=== PATIENT | female | born 1960 | race Caucasian/White ===

== ENCOUNTER 2021-02-20 12:32 | Inpatient (IN) | payer MEDICARE, MEDICAID, SELFPAY ==
--- NOTE | ~2021-02-20 | US_ITS ---
EXAMINATION: US VENOUS ULTRASOUND WITH DOPPLER LOWER EXTREMITY, LEFT CLINICAL INFORMATION: Pain. Edema. Swelling. COMPARISON: None TECHNIQUE: Ultrasound of the deep veins is performed from the hip to the calf with compression sonography and color and pulse Doppler assessment. Spectral analysis with color-flow imaging is performed. FINDINGS: There is extensive deep vein thrombosis of the left lower extremity. There is thrombus present in the common femoral vein, greater saphenous vein, profunda vein. In the femoral vein from proximal through distal and into the popliteal vein. There is thrombus in the posterior tibial vein and peroneal vein of the calf. US/US venous duplex LE IMPRESSION: Extensive deep vein thrombosis of left lower extremity. This critical result was discussed with Dr. Bassett on 02/20/2021, 5:18 PM and it was ascertained that the content and urgency of the report was understood at the time of direct communication.
--- NOTE | ~2021-02-20 | CT_ITS ---
EXAMINATION: CT ANGIOGRAM OF THE CHEST WITH AND WITHOUT CONTRAST (CT PULMONARY ANGIOGRAM FOR PE) CLINICAL INFORMATION: Reason for Exam Extensive DVT, exlude PE COMPARISON: 03/31/2016. TECHNIQUE: Prior to contrast administration, noncontrast localization images were obtained. Subsequently, multidetector volumetric imaging was performed from the thoracic inlet to below the diaphragms following the administration of 69 mL Omnipaque 350 intravenous contrast. No contrast reaction reported Sagittal, coronal, and MIP oblique sagittal reformatted images were obtained on the CT workstation, uploaded to PACS, and reviewed. This CT examination was performed using dose optimization techniques as appropriate, variously including the following: *Automated exposure control *Adjustment of mA and/or kV according to patient size (this includes techniques or standardized protocols for targeted exams where dose is matched to indication/reason for exam; i.e. extremities or head) *Use of iterative reconstruction technique Total exam dose-length product 408 mGy-cm FINDINGS: QUALITY OF STUDY/CONTRAST BOLUS: Satisfactory. PULMONARY ARTERIES: As seen on image [id number] of series 7, there is a small intraluminal filling defect within a segmental pulmonary artery to the posterior basilar segment of the right lower lobe, most concerning for an acute pulmonary embolus. No additional filling defects are identified in the central, lobar, or segmental pulmonary artery branches. Main pulmonary arteries are normal in caliber. THORACIC AORTA: No aneurysm or dissection. Mild calcific atherosclerosis in the thoracic aorta. LUNG: Mild dependent atelectasis. No focal airspace consolidation. Central airways are clear. No suspicious pulmonary nodules. PLEURA: No pleural effusion or pneumothorax. MEDIASTINUM: Normal heart size. No pericardial effusion. No hilar or mediastinal lymphadenopathy. No evidence of septal bowing or right heart strain. CHEST WALL/AXILLA: No axillary or internal mammary lymphadenopathy. OSSEOUS STRUCTURES: No acute or suspicious osseous abnormality. Diffusely idiopathic skeletal hyperostosis is apparent in the thoracic spine. No acute fracture or malalignment. UPPER ABDOMEN: Unremarkable. No reflux of contrast into the hepatic veins to suggest elevated right heart pressures. CT/CT angio chest PE protocol IMPRESSION: Small segmental pulmonary embolus in the right lower lobe, favored to be acute. No evidence of elevated right heart pressures. No additional pulmonary emboli are identified. VTE: positive
[2021-02-20 12:43] VITALS: BP 119/54; PULSE 86; RESP 16; TEMP 36.6; O2SAT 98; BMI 35.8
--- NOTE | 2021-02-20 14:09 | ED_ITS ---
HPI - Extremity Injury (Lower) General Chief Complaint: Extremity Injury, Lower Stated Complaint: LT LEG PAIN,NEAR SYNCOPE Time Seen by Provider: 02/20/21 14:05 History of Present Illness HPI Narrative: Patient is a 61-year-old female with a history of migraine headaches. Presents today with having left leg pain. Swelling. Patient denies any fever chills. No nausea no vomiting. No trauma. Complaining of pain and swelling to the calf on the left side. There is swelling there. Patient denies having history of blood clots in the past. Not on hormone replacement. No dizziness. No nausea no vomiting no chest pain or shortness of breath. Patient is from home. Related Data Allergies Allergy/AdvReac Type Severity Reaction Status Date / Time bee pollen [BEE STINGS] Allergy Unknown UNKNOWN Unverified 04/12/20 16:09 divalproex sodium Allergy Unknown UNKNOWN Unverified 04/12/20 16:09 [From DEPAKOTE] erythromycin base Allergy Unknown UNKNOWN Unverified 04/12/20 16:09 [ERYTHROMYCIN BASE] oxycodone [From PERCOCET] AdvReac Mild NAUSEA & Unverified 04/12/20 16:09 VOMITING Review of Systems Review of Systems: No fever no chills no chest pain or shortness of breath No nausea no vomiting Positive leg swelling on the left side Yes all other systems are reviewed and are negative [facility] Past Medical History Medical History Anxiety Hypertension Migraine Ruptured (congenital) cerebral aneurysm Stroke Social History Social History Advance Directives: Yes Advance Directives Information Provided: Yes Advance Directives on File: No Physical Exam Vital Signs: Vital Signs: Last Vital Signs Temp 97.8 F 02/20/21 12:43 Pulse 67 02/20/21 15:58 Resp 16 02/20/21 15:58 BP 125/65 02/20/21 15:58 Pulse Ox 98 02/20/21 15:58 Body Mass Index 35.8 Appearance: Alert. Oriented X3. No acute distress. Eyes: Pupils equal, round and reactive to light. ENT: Pharynx normal. Neck: Normal inspection. Neck supple. No lymph nodes noted. No crepitus CVS: Normal heart rate and rhythm. Pulses normal. Normal S1 and S2 Respiratory: No respiratory distress. Breath sounds normal. No Wheezing. No rales Abdomen: Soft and nontender. No rigidity. No distention. good BS x4 Skin: Skin warm and dry. Normal skin color. Normal skin turgor. Extremities: Positive swelling to the left leg. Pulses intact. Sensation intact there is a model appearance to the skin. There is good pulses noted. Range of motion limited secondary to pain. Neuro: Oriented X 3. No motor deficit. No sensory deficit. Moving all extermities. No slurred speech MDM - Extremity Injury (Lower) MDM Narrative Medical decision making narrative: Patient has a history of swelling to the leg. Increasing pain. Ultrasound showed extensive DVT almost involving every vein. Clinically appear to have a red swollen leg. Consistent with having extensive clot. The finding was discussed with vascular will start patient on a heparin drip along with bolus. Vascular will perform clot retrieval tomorrow Medical Records Attestation: I reviewed the patient's medical records. Lab Data Attestation: I reviewed the patient's lab results. Result diagrams: 02/20/21 14:13 02/20/21 14:13 Labs: Lab Results 02/20/21 02/20/21 02/20/21 Range/Units 12:41 14:13 14:13 WBC 11.1 H (4.8-10.8) X10*3/uL RBC 4.45 (4.20-5.50) X10*6/uL Hgb 13.2 (12.0-16.0) g/dl Hct 41.0 (37-47) % MCV 92.1 (80-98) fL MCH 29.7 (27.0-33.0) pg MCHC 32.2 (31.0-35.0) g/dl RDW 12.8 (11.0-16.0) % Plt Count 228 (160-400) X10*3/uL MPV 10.3 (9.4-12.3) fL Immature Gran % (Auto) 0.5 H (0.0-0.4) % Neut % (Auto) 78.8 H (45-73) % Lymph % (Auto) 12.2 L (20-40) % Calloway % (Auto) 7.1 (2-11) % Eos % (Auto) 1.0 (0-4) % Baso % (Auto) 0.4 (0-2) % Lymph # (Auto) 1.4 (1.2-4.9) X10*3/uL Calloway # (Auto) 0.8 (0.1-1.2) X10*3/uL Eos # (Auto) 0.1 (0.0-0.4) X10*3/uL Baso # (Auto) 0.0 (0.0-0.2) X10*3/uL Abs Immat Gran (auto) 0.05 H (0.00-0.03) X10*3/uL Absolute Neuts (auto) 8.8 H (2.0-8.3) X10*3/uL Absolute Nucleated RBC 0.000 (0.0-0.012) X10*3/uL Nucleated RBC % (auto) 0.0 (0.0-0.2) /100WBC Whole Blood PT TNP Whole Blood INR TNP Sodium 143 (135-145) mmol/L Potassium 4.6 (3.3-5.1) mmol/L Chloride 107 (96-108) mmol/L Carbon Dioxide 25 (22-29) mmol/L Anion Gap 16 (12-20) BUN 18 H (9-16) mg/dL Creatinine 1.04 (0.5-1.4) mg/dL Estim Creat Clear Calc 59.6 Estimated GFR 54 Random Glucose 115 (60-115) mg/dL Calcium 10.0 (8.4-10.2) mg/dL Total Bilirubin 0.8 (0.0-1.0) mg/dL Direct Bilirubin 0.3 (0.0-0.5) mg/dL AST 47 H (5-31) U/L ALT 38 H (0-31) U/L Alkaline Phosphatase 176 H (39-117) U/L Total Protein 7.0 (6.5-8.0) g/dL Albumin 4.4 (3.5-5.0) g/dL Discharge Plan Discharge Clinical Impression: DVT (deep venous thrombosis) Patient Disposition: Admitted As Inpatient
[2021-02-20 14:14] VITALS: BP 115/89; PULSE 64; RESP 16; O2SAT 98
[2021-02-20 14:22] LABS: MANUAL DIFF FLAG NO
[2021-02-20 14:28] LABS: Basophils Percent Auto 0.4 % (0-2); Eosinophils Absolute Auto 0.1 X10*3/uL (0.0-0.4); Hemoglobin 13.2 g/dl (12.0-16.0); Imm Gran Abs Auto 0.05 X10*3/uL (0.00-0.03); Imm Gran Pct Auto 0.5 % (0.0-0.4); Lymphocytes Absolute Auto 1.4 X10*3/uL (1.2-4.9); Lymphocytes Percent Auto 12.2 % (20-40); Mean Corpuscular HGB Conc 32.2 g/dl (31.0-35.0); Mean Corpuscular Hemoglobin 29.7 pg (27.0-33.0); Mean Corpuscular Volume 92.1 fL (80-98); Mean Platelet Volume 10.3 fL (9.4-12.3); Monocytes Absolute Auto 0.8 X10*3/uL (0.1-1.2); Monocytes Percent Auto 7.1 % (2-11); Neutrophils Absolute Auto 8.8 X10*3/uL (2.0-8.3); Neutrophils Percent Auto 78.8 % (45-73); Platelet Count 228 X10*3/uL (160-400); Red Blood Count 4.45 X10*6/uL (4.20-5.50); Red Cell Distribution Width 12.8 % (11.0-16.0); White Blood Count 11.1 X10*3/uL (4.8-10.8)
[2021-02-20 14:51] LABS: Alanine Aminotransferase 38 U/L (0-31); Albumin Level 4.4 g/dL (3.5-5.0); Alkaline Phosphatase 176 U/L (39-117); Anion Gap 16 (12-20); Aspartate Amino Transferase 47 U/L (5-31); Bilirubin Direct 0.3 mg/dL (0.0-0.5); Bilirubin Total 0.8 mg/dL (0.0-1.0); Blood Urea Nitrogen 18 mg/dL (9-16); Carbon Dioxide 25 mmol/L (22-29); Chloride 107 mmol/L (96-108); Creatinine Clr Calc Pharmacy 59.6; Estimated Glomerular Filt Rate 54; Glucose Random 115 mg/dL (60-115); Potassium 4.6 mmol/L (3.3-5.1); Sodium 143 mmol/L (135-145)
[2021-02-20 15:58] VITALS: BP 125/65; PULSE 67; RESP 16; O2SAT 98
[2021-02-20] MEDS: LORazepam 2 MG/ML VIAL 1 MG IVPUSH (16:12)
[2021-02-20] MEDS: Ketorolac Tromethamine 15 MG/ML VIAL IVPUSH (16:12)
--- NOTE | 2021-02-20 18:16 | PHA.MEDREC ---
Pharmacy Consult ? Medication Reconciliation Pharmacy has completed the medication reconciliation. Therer are no remarkable issues for provider's attention. Patient reports that for diarrhea see prefers using Cholestyramine 2 4g packets over Immodium. Glenna Teran, PharmD
[2021-02-20 18:24] VITALS: BP 136/71; PULSE 77; RESP 18; TEMP 36.8; O2SAT 96
[2021-02-20 18:38] VITALS: BMI 34.2
[2021-02-20] MEDS: Heparin Sodium,Porcine/1/2NS 25,000 UNIT/250 ML IV.SOLN 12.45 UNIT IVCONT (18:40)
[2021-02-20] MEDS: Heparin Sodium,Porcine 5,000 UNIT/ML VIAL 5000 UNIT IVPUSH (18:40)
--- NOTE | 2021-02-20 18:46 | PM.IMHP ---
History of Present Illness Date of Service: 02/20/21 Chief Complaint: Left leg swelling 61-year-old female with a history of migraine headaches, history of brain aneurysm 32 years ago, chronic sciatica, drop foot, arthritis, presenting to ED with very swollen left that developped over the last 24 hours. She is usually not very mobile, and did take a bus to the [employer] to [place] yesterday. She has not been having sob, she takes no hormones, she does not have history of cancer. US sound shows extensive deep vein thrombosis of left lower extremity. Review of Systems Review of Systems: Gen: no fever Resp: no sob, no cough CV: no chest, no MOLINA, no leg edema GI: No n/v, no abd pain Neuro: No confusion Ext: left leg swelling [facility] Medical History (Updated 02/20/21 @ 18:55 by Hardeep Piper MD) Anxiety Hypertension Migraine Ruptured (congenital) cerebral aneurysm Sciatica Stroke Surgical History History of cholecystectomy History of partial hysterectomy History of ventriculoperitoneal shunting Social History Advance Directives: Yes Advance Directives Information Provided: Yes Advance Directives on File: No Meds Allergies Allergy/AdvReac Type Severity Reaction Status Date / Time bee pollen [BEE STINGS] Allergy Unknown UNKNOWN Unverified 04/12/20 16:09 divalproex sodium Allergy Unknown UNKNOWN Unverified 04/12/20 16:09 [From DEPAKOTE] erythromycin base Allergy Unknown UNKNOWN Unverified 04/12/20 16:09 [ERYTHROMYCIN BASE] oxycodone [From PERCOCET] AdvReac Mild NAUSEA & Unverified 04/12/20 16:09 VOMITING Active Medications: Current Medications Generic Name Dose Route Start Last Admin Trade Name Freq PRN Reason Stop Dose Admin Acetaminophen 650 mg 02/20/21 18:40 Acetaminophen 325 Mg Tablet PO Q6H PRN Pain, Mild (Pain Scale 1-3) Docusate Sodium 100 mg 02/20/21 18:40 Docusate Sodium 100 Mg Capsule PO DAILY PRN Constipation Heparin Sodium (Porcine) 3,600 unit 02/20/21 17:40 Heparin Sodium,Porcine 5,000 Unit/Ml Vial 40 unit/kg (3600 unit) IVPUSH PROTOCOL BOLUS PRN 40 unit/kg - Heparin Protocol Protocol Heparin Sodium (Porcine) 7,100 unit 02/20/21 17:40 Heparin Sodium,Porcine 5,000 Unit/Ml Vial 80 unit/kg (7100 unit) IVPUSH PROTOCOL BOLUS PRN 80 unit/kg - Heparin Protocol Protocol Heparin Sodium/Sodium Chloride 25,000 unit in 250 mls @ 0 mls/hr 02/20/21 17:45 02/20/21 18:40 IVCONT 14 units/kg/hr .Q0M AYLEEN 12.45 mls/hr Administration Protocol Per Protocol Dextrose/Sodium Chloride 1,000 mls @ 100 mls/hr 02/20/21 18:45 D51/2ns IVCONT 02/21/21 04:44 .Q10H AYLEEN Magnesium Hydroxide 30 ml 02/20/21 18:40 Milk Of Magnesia 30 Ml Oral.Susp PO DAILY PRN Constipation Melatonin 6 mg 02/20/21 18:40 Melatonin 3 Mg Tablet PO BEDTIME PRN Insomnia Ondansetron HCl 4 mg 02/20/21 18:40 Ondansetron Hcl 4 Mg/2 Ml Vial IVPUSH Q8H PRN Nausea and Vomiting Pharmacy Consult 1 each 02/20/21 17:22 Consult Rx Perform Med Rec MISCELLANE ONCE PRN Consult order Sodium Chloride 3 ml 02/21/21 00:00 0.9 % Sodium Chloride Flush 3 Ml Syringe IVFLUSH QSHIFT [facility] Valacyclovir HCl 1,000 mg 02/20/21 21:00 Valacycyclovir Hcl 1,000 Mg Tablet PO BID [facility] Home Medications Medication Instructions Recorded Confirmed Last Taken Type aspirin 81 mg chewable tablet 81 mg PO BEDTIME 02/20/21 02/20/21 02/19/21 History cholestyramine (with sugar) 4 gram 8 g PO QID PRN 02/20/21 02/20/21 Unknown History powder for susp in a packet clonazepam 1 mg tablet 1 mg PO BEDTIME PRN 02/20/21 02/20/21 02/19/21 History escitalopram oxalate 10 mg tablet 1 tab PO BEDTIME 02/20/21 02/20/21 02/19/21 History estradiol 1 appl VAGINAL BEDTIME 02/20/21 02/20/21 02/19/21 History gabapentin 100 mg capsule 200 mg PO BEDTIME 02/20/21 02/20/21 02/19/21 History irbesartan 75 mg tablet 0.5 tab PO BEDTIME 02/20/21 02/20/21 02/19/21 History melatonin 5 mg tablet 5 mg PO BEDTIME 02/20/21 02/20/21 02/19/21 History trazodone 100 mg tablet 2 tab PO BEDTIME 02/20/21 02/20/21 02/19/21 History valacyclovir 1 gram tablet 1 tab PO BID 02/20/21 02/20/21 02/20/21 History verapamil 240 mg tablet,extended 1 tab PO DAILY 02/20/21 02/20/21 02/19/21 History release Physical Exam Vital Signs and Narrative: Vital Signs: Last Vital Signs Temp 98.2 F 02/20/21 18:24 Pulse 77 02/20/21 18:24 Resp 18 02/20/21 18:24 BP 136/71 02/20/21 18:24 Pulse Ox 96 02/20/21 18:24 Body Mass Index 34.2 Const: Other: Constitutional Awake and Alert, No apparent distress Neck Supple, No lymphadenopathy Cardiovascular RRR, No M/R/G, S1 S2, No S3 S4, No pedal edema Respiratory Lungs clear, No respiratory distress Gastrointestinal Non tender, Non-distended Skin No rash Neurological Alert & oriented x3 Psychological Appropriate affect Extensive swelling of the left leg, bit discolored compare to the other one Results Labs CBC and Chem 7: 02/20/21 14:13 02/20/21 14:13 Imaging Radiologist's Impressions: Impressions Venous Duplex 02/20/21 14:05 IMPRESSION: Extensive deep vein thrombosis of left lower extremity. This critical result was discussed with Dr. Bassett on 02/20/2021, 5:18 PM and it was ascertained that the content and urgency of the report was understood at the time of direct communication. Assessment and Plan (1) DVT (deep venous thrombosis): Status: Acute 61 year old female with extensive left DVT of unclear precipitant Plan: IV heparin, Vascular and Hematology, CT chest to exlude PE 2 HTN--continue Irberstartan once med rec done 3. Anxiety depression--Clonapen, Celexa DVT prophylaxis--Heparin, Full code Quality Stroke Does the patient have a stroke diagnosis?: No VTE Prior VTE?: No VTE Risk Level:: Medical - moderate - high VTE Device Contraindication: N/A - Device Ordered VTE Drug Contraindication: N/A - Med Ordered
[2021-02-20 18:53] LABS: COVID-19 Test Negative (Negative); IDNOW Serial# 9DD0AD1C
[2021-02-20] MEDS: Dextrose 5 % and 0.45 % NaCl 1,000 ML 100 ML IVCONT (18:58)
[2021-02-20] MEDS: Acetaminophen 325 MG TABLET 650 MG PO (18:58)
[2021-02-20 18:59] LABS: PTT Heparin Drip 89.4 SEC (53-77.9)
[2021-02-20] MEDS: iohexoL 350 MG/ML 100 ML INFUS..BTL IV (20:19)
[2021-02-20] MEDS: traZODone HCL 100 MG TABLET 200 MG PO (20:22)
[2021-02-20] MEDS: Gabapentin 100 MG CAPSULE 200 MG PO (20:22)
[2021-02-20] MEDS: Aspirin 81 MG TAB.CHEW PO (20:22)
[2021-02-20] MEDS: Valsartan 40 MG TABLET 20 MG PO (20:22)
[2021-02-20] MEDS: Escitalopram Oxalate 10 MG TABLET PO (20:23)
[2021-02-20] MEDS: Melatonin 3 MG TABLET 6 MG PO (21:03)
[2021-02-20 21:05] VITALS: BP 102/46; PULSE 75; RESP 16; O2SAT 98
--- NOTE | 2021-02-20 22:20 | P.EN_ITS ---
Event Note Date of Service: 02/20/21 Event Note: CTA chest positive for small PE withno evindece of right heart str ain
[2021-02-20] MEDS: clonazePAM 1 MG TABLET PO (22:31)
[2021-02-21] VITALS (22 sets, daily range): BP systolic 91–131; BP diastolic 38–86; PULSE 51–74; RESP 12–21; TEMP 36.1–37; O2SAT 92–98; BMI 36.6
--- NOTE | 2021-02-21 00:50 | PC.NURSE ---
RN CALLED TO ROOM FOR BEEPING PER PT. ON ARRIVAL IV PUMP WAS BEEPING, PT NOTED TO HAVE R AC IV SITE INFILTRATION WHERE THE HEPARIN DRIP WAS INFUSING. PT HAD RED SWOLLEN AREA AT IV SITE. PUMP WAS STOPPED, IV REMOVED, SITE MARKED & WARM PACK APPLIED. LAB WAS AT BEDSIDE AT THIS TIME FOR PT/HD. HEPARIN WILL REMAIN PAUSED UNTIL RESULT PER HOSPITALIST WHO IS AWARE OF IV INFILTRATION. 2ND LINE WILL BE PLACED.
[2021-02-21 01:09] LABS: PTT Heparin Drip 104.7 SEC (53-77.9)
[2021-02-21 07:18] LABS: PTT Heparin Drip 128.6 SEC (53-77.9)
--- NOTE | 2021-02-21 08:06 | PC.NURSE ---
HEPARIN GTT TUNED OFF AT [address] SHEIKH AT BEDSIDE.
[2021-02-21] MEDS: 0.9 % Sodium Chloride 500 ML 20 ML IVCONT (10:00)
[2021-02-21] MEDS: Heparin Sodium,Porcine/1/2NS 25,000 UNIT/250 ML IV.SOLN 5 UNIT IVCONT (10:10)
[2021-02-21] MEDS: 0.9 % Sodium Chloride Flush 3 ML SYRINGE IVFLUSH (10:18)
--- NOTE | 2021-02-21 10:29 | P.CONGS_ITS ---
History of Present Illness Consult details Consult date: 02/21/21 Reason for consult: other (DVT/PE) Requesting physician: Hardeep Piper Narrative: Very pleasant 61-year-old female presented to the emergency room yesterday evening for acute onset left lower extremity swelling. There have been no aggravating factors per. This is the 1st time such a thing has ever happened to her. Upon workup she was found to have a DVT and subsequent CT scan demonstrated a pulmonary embolism. She denies any hypercoagulable his history, any trauma, or any family history. She now presents for vascular evaluation. Review of Systems Constitutional: Constitutional: Reports as per HPI ENT: Reports system reviewed and no additional complaints, except as documented Cardiovascular: Cardiovascular: Denies chest pain, Denies chest pain at rest and Denies chest pain with activity Respiratory: Respiratory: Denies chest congestion and Denies cough Gastrointestinal: Gastrointestinal: Reports no additional gastrointestinal complaints Musculoskeletal: Musculoskeletal: Denies abnormal gait Integumentary/Breasts: Skin/Breast: Reports pruritus and Denies wounds Neurologic: Reports system reviewed and no additional complaints, except as documented and Denies abnormal gait Psychiatric: Psychiatric: Denies no additional psychiatric complaints [facility] Past Medical History Medical History (Updated 02/20/21 @ 18:55 by Hardeep Piper MD) Anxiety Hypertension Migraine Ruptured (congenital) cerebral aneurysm Sciatica Stroke Surgical History Surgical History History of cholecystectomy History of partial hysterectomy History of ventriculoperitoneal shunting Social History Social History Patient Tobacco Use Status: Former Tobacco user Use of substances other than those prescribed or required for medical reasons: No Have you been hit, kicked, punched, or otherwise hurt by someone within the past year? If so, by whom?: No Advance Directives: Yes Advance Directives Information Provided: Yes Advance Directives on File: No Advance Directives Date on File: 02/21/21 Meds Allergies Allergy/AdvReac Type Severity Reaction Status Date / Time bee pollen [BEE STINGS] Allergy Unknown UNKNOWN Verified 02/21/21 08:14 divalproex sodium Allergy Unknown UNKNOWN Verified 02/21/21 08:14 [From DEPAKOTE] erythromycin base Allergy Unknown UNKNOWN Verified 02/21/21 08:14 [ERYTHROMYCIN BASE] oxycodone [From PERCOCET] AdvReac Mild NAUSEA & Verified 02/21/21 08:14 VOMITING Active Medications: Current Medications Generic Name Dose Route Start Last Admin Trade Name Radamesq PRN Reason Stop Dose Admin Acetaminophen 650 mg 02/20/21 18:40 02/20/21 18:58 Acetaminophen 325 Mg Tablet PO 650 mg Q6H PRN Administration Pain, Mild (Pain Scale 1-3) Aspirin 81 mg 02/20/21 21:00 02/20/21 20:22 Aspirin 81 Mg Tab.Chew PO 81 mg BEDTIME AYLEEN Administration Cholestyramine Resin 8 gm 02/20/21 19:13 Cholestyramine (With Sugar) 4 Gm Powd.Pack PO QID PRN Diarrhea Clonazepam 1 mg 02/20/21 19:13 02/20/21 22:31 Clonazepam 1 Mg Tablet PO 1 mg BEDTIME PRN Administration Insomnia Docusate Sodium 100 mg 02/20/21 18:40 Docusate Sodium 100 Mg Capsule PO DAILY PRN Constipation Escitalopram Oxalate 10 mg 02/20/21 21:00 02/20/21 20:23 Escitalopram Oxalate 10 Mg Tablet PO 10 mg BEDTIME AYLEEN Administration Gabapentin 200 mg 02/20/21 21:00 02/20/21 20:22 Gabapentin 100 Mg Capsule PO 200 mg BEDTIME AYLEEN Administration Heparin Sodium (Porcine) 3,600 unit 02/20/21 17:40 Heparin Sodium,Porcine 5,000 Unit/Ml Vial 40 unit/kg (3600 unit) IVPUSH PROTOCOL BOLUS PRN 40 unit/kg - Heparin Protocol Protocol Heparin Sodium (Porcine) 7,100 unit 02/20/21 17:40 Heparin Sodium,Porcine 5,000 Unit/Ml Vial 80 unit/kg (7100 unit) IVPUSH PROTOCOL BOLUS PRN 80 unit/kg - Heparin Protocol Protocol Alteplase, Recombinant 5 mg/ 500 mls @ 50 mls/hr 02/21/21 09:30 02/21/21 10:10 Sodium Chloride IV 02/21/21 19:29 50 mls/hr ONCE ONE Administration Heparin Sodium/Sodium Chloride 25,000 unit in 250 mls @ 5 mls/hr 02/21/21 10:00 02/21/21 10:10 IVCONT 5 mls/hr .Q24H AYLEEN Administration Magnesium Hydroxide 30 ml 02/20/21 18:40 Milk Of Magnesia 30 Ml Oral.Susp PO DAILY PRN Constipation Melatonin 6 mg 02/20/21 18:40 02/20/21 21:03 Melatonin 3 Mg Tablet PO 6 mg BEDTIME PRN Administration Insomnia Non-Formulary Medication 1 appl 02/20/21 21:00 Estradiol VAGINAL BEDTIME AYLEEN Ondansetron HCl 4 mg 02/20/21 18:40 Ondansetron Hcl 4 Mg/2 Ml Vial IVPUSH Q8H PRN Nausea and Vomiting Pharmacy Consult 1 each 02/20/21 17:22 Consult Rx Perform Med Rec MISCELLANE ONCE PRN Consult order Sodium Chloride 3 ml 02/21/21 00:00 02/21/21 10:18 0.9 % Sodium Chloride Flush 3 Ml Syringe IVFLUSH 3 ml QSHIFT AYLEEN Administration Trazodone HCl 200 mg 02/20/21 21:00 02/20/21 20:22 Trazodone Hcl 100 Mg Tablet PO 200 mg BEDTIME AYLEEN Administration Valacyclovir HCl 1,000 mg 02/20/21 21:00 02/20/21 20:22 Valacycyclovir Hcl 1,000 Mg Tablet PO 1,000 mg BID AYLEEN Administration Valsartan 20 mg 02/20/21 21:00 02/20/21 20:22 Valsartan 40 Mg Tablet PO 20 mg BEDTIME AYLEEN Administration Verapamil HCl 240 mg 02/21/21 09:00 Verapamil Hcl Sr 240 Mg Tablet.Er PO DAILY [facility] Protocol Home Medications Medication Instructions Recorded Confirmed Last Taken Type aspirin 81 mg chewable tablet 81 mg PO BEDTIME 02/20/21 02/20/21 02/19/21 History cholestyramine (with sugar) 4 gram 8 g PO QID PRN 02/20/21 02/20/21 Unknown History powder for susp in a packet clonazepam 1 mg tablet 1 mg PO BEDTIME PRN 02/20/21 02/20/21 02/19/21 History escitalopram oxalate 10 mg tablet 1 tab PO BEDTIME 02/20/21 02/20/21 02/19/21 History estradiol 1 appl VAGINAL BEDTIME 02/20/21 02/20/21 02/19/21 History gabapentin 100 mg capsule 200 mg PO BEDTIME 02/20/21 02/20/21 02/19/21 History irbesartan 75 mg tablet 0.5 tab PO BEDTIME 02/20/21 02/20/21 02/19/21 History melatonin 5 mg tablet 5 mg PO BEDTIME 02/20/21 02/20/21 02/19/21 History trazodone 100 mg tablet 2 tab PO BEDTIME 02/20/21 02/20/21 02/19/21 History valacyclovir 1 gram tablet 1 tab PO BID 02/20/21 02/20/21 02/20/21 History verapamil 240 mg tablet,extended 1 tab PO DAILY 02/20/21 02/20/21 02/19/21 History release Physical Exam Vital Signs: Vital Signs: Last Vital Signs Temp 97.7 F 02/21/21 07:52 Pulse 65 02/21/21 07:52 Resp 18 02/21/21 07:52 BP 131/71 02/21/21 07:52 Pulse Ox 95 02/21/21 07:52 Body Mass Index 34.2 Const: General: cooperative, healthy appearing and comfortable Orientation/consciousness: oriented to person, oriented to place and oriented to time Neck: Carotids: no bruits Chest: Chest palpation & inspection: normal inspection of the chest and normal palpation of entire chest wall Resp: Effort & Inspection: normal respiratory effort and able to speak in complete sentences Cardio: Rate: regular rate Heart sounds: S1 normal heart sound present and S2 normal heart sound present Peripheral pulses: Peripheral pulses 2+ throughout GI: Inspection: Yes normal to inspection Skin: Other: +2 edema, left leg significantly swollen General skin exam: dry skin Neuro: General: oriented to person, oriented to place and oriented to time Extrem: General: Yes edema Right lower extremity: full ROM, normal cap illary refill and edema Left lower extremity: full ROM, normal capillary refill and edema Psych: Mental Status: mental status grossly normal Results Labs Result diagrams: 02/20/21 14:13 02/20/21 14:13 Labs: Abnormal lab results 02/20/21 02/20/21 02/20/21 Range/Units 14:13 14:13 18:46 WBC 11.1 H (4.8-10.8) X10*3/uL Immature Gran % (Auto) 0.5 H (0.0-0.4) % Neut % (Auto) 78.8 H (45-73) % Lymph % (Auto) 12.2 L (20-40) % Abs Immat Gran (auto) 0.05 H (0.00-0.03) X10*3/uL Absolute Neuts (auto) 8.8 H (2.0-8.3) X10*3/uL PTT (Heparin Protocol) 89.4 H (53-77.9) SEC BUN 18 H (9-16) mg/dL AST 47 H (5-31) U/L ALT 38 H (0-31) U/L Alkaline Phosphatase 176 H (39-117) U/L 02/21/21 02/21/21 Range/Units 00:48 06:44 WBC (4.8-10.8) X10*3/uL Immature Gran % (Auto) (0.0-0.4) % Neut % (Auto) (45-73) % Lymph % (Auto) (20-40) % Abs Immat Gran (auto) (0.00-0.03) X10*3/uL Absolute Neuts (auto) (2.0-8.3) X10*3/uL PTT (Heparin Protocol) 104.7 H 128.6 H* D (53-77.9) SEC BUN (9-16) mg/dL AST (5-31) U/L ALT (0-31) U/L Alkaline Phosphatase (39-117) U/L Short CBC 02/20/21 Range/Units 14:13 WBC 11.1 H (4.8-10.8) X10*3/uL Hgb 13.2 (12.0-16.0) g/dl Hct 41.0 (37-47) % Plt Count 228 (160-400) X10*3/uL BMP 02/20/21 14:13 Sodium 143 Potassium 4.6 Chloride 107 Carbon Dioxide 25 BUN 18 H Creatinine 1.04 Calcium 10.0 Liver Function 02/20/21 Range/Units 14:13 Total Bilirubin 0.8 (0.0-1.0) mg/dL Direct Bilirubin 0.3 (0.0-0.5) mg/dL AST 47 H (5-31) U/L ALT 38 H (0-31) U/L Alkaline Phosphatase 176 H (39-117) U/L Albumin 4.4 (3.5-5.0) g/dL All other labs normal. Imaging Additional studies: Ultrasound and CT scan written report and images were reviewed confirming DVT of the left lower extremity and PE Assessment and Plan (1) DVT (deep venous thrombosis): Status: Acute In short patient has DVT with PE. Due to the extensive nature of the DVT patient will require thrombolysis. This was discussed with the patient. She is in agreement. Risks benefits complications were discussed in detail with the patient. She understood and consented. She is well aware that she is at an increased risk of bleeding. Please note a total of 60 minutes was required for record assessment, management of services, imaging review, discussion with the ER team, coordination with the hospitalist team. And coordination of Interventional services. Procedures Date of Service Date of Service: 02/21/21
--- NOTE | 2021-02-21 10:36 | W.PM.OPN ---
Operative Note Operative Note Date of Service: 02/21/21 Narrative: Angiogram report from [facility] Preoperative diagnosis: Extensive left lower extremity DVT with pulmonary embolism Postoperative diagnosis: Same Procedure: 1. Ultrasound-guided left common femoral vein access 2. Venogram with left lower extremity runoff 3. Insertion of thrombolysis catheter Surgeon:Igor Ortega M.D. [employer] Manager:None Anesthesia: Local with moderate conscious sedation for a total of 36 minutes, performed by mt Specimens:none Drains:none Estimated blood loss: Less than 10 ml Indications: [age] year old female discovered in the ER to have DVT with PE. Due to the extensive nature of her clot decision was made to undergo thrombolysis. The patient has signed the informed consent after reviewing risks, complications, benefits, and alternatives previously discussed with the patient. The patient was given the opportunity to ask any additional questions or voice any concerns. All questions were answered to the patient's satisfaction. Procedure in detail: Patient was brought to the angiography suite prior to which a time-out was called for patient identification and site verification. Bilateral groins were prepped and draped in the standard surgical fashion. Under ultrasound guidance left common femoral vein was punctured with micro puncture needle and wire. Subsequently a precision 4 [place] sheath was then placed. Bentson wire was advanced to the level of the inferior vena cava. 4 [place] Flush catheter was brought up and parked at the level of the renal vein. There was significant occlusion noted any even the distal portion of the vena cava was occluded. Once we were able to traverse an imaging was then undertaken. We subsequently switched out for an a Glidewire Advantage wire and over this we exchanged out for five [place] sheath. At this point we then inserted a Thomas-Jersona 20 cm Catheter. Propria position was confirmed under x-ray. Sheath was sutured into place. We then began thrombolysis with 0.5 mg via the catheter and 500 units of heparin via the sheath. Patient tolerated the procedure well and was placed in the ICU for observation overnight. Patient will return for follow-up study for tomorrow. Interpretation of films: 1. Ultrasound demonstrates appropriate femoral puncture. Image of which was saved. 2. Distal vena cava had total occlusion proximal iliac vein had total occlusion there was some reconstitution at the femoral vein 3. appropriate placement of catheter Conclusion: 1. successful thrombolysis catheter placement This note is constructed using voice recognition software. While every effort has been made to ensure accuracy, clinical appeals reviewer errors may have been included. Thank you for allowing me to participate in the care of your patient. Yours sincerely, Igor Ortega MD, FACS, R.P.V.I.
[2021-02-21] MEDS: VerapamiL HCL SR 240 MG TABLET.ER PO (11:08)
--- NOTE | 2021-02-21 11:22 | W.PM.CCCN ---
History of Present Illness Data of Consult Service Date: 02/21/21 Requesting physician: Igor Ortega Primary Care Provider: MD GIOVANA Aiken Reason for consult: On tPA drip to the common femoral vein for extensive thrombotic burden [age] year old who is status post subarachnoid hemorrhage due to a ruptured intracerebral aneurysm and had obstructive hydrocephalus and placement of a ventriculoperitoneal drain as a result and then developed swelling and pain in the left lower extremity found to have deep vein thrombosis extensively with small pulmonary embolism of which she is asymptomatic Former smoker and former drinker but no recent history of such no history of any medical hypercoagulable episodes Review of Systems Review of Systems: She has residual weakness from the original subarachnoid hemorrhage nothing new and had no respiratory symptoms no chest discomfort no dyspnea Yes all other systems are reviewed and are negative REPLACED BY [facility] Past Medical History Medical History (Updated 02/22/21 @ 10:38 by Maria R Cordova MD) Anxiety Hypertension Migraine Ruptured (congenital) cerebral aneurysm Sciatica Stroke Subarachnoid hemorrhage Surgical History Surgical History History of cholecystectomy History of partial hysterectomy History of ventriculoperitoneal shunting Social History Social History Patient Tobacco Use Status: Former Tobacco user Use of substances other than those prescribed or required for medical reasons: No Currently Displaying Signs/Symptoms of Drug Intoxication Withdrawal: No Have you been hit, kicked, punched, or otherwise hurt by someone within the past year? If so, by whom?: No Advance Directives: Yes Advance Directives Information Provided: Yes Advance Directives on File: No Advance Directives Date on File: 02/21/21 Do you have thoughts of harming others: None Do you have a plan to hurt others: No Plan Meds Allergies Allergy/AdvReac Type Severity Reaction Status Date / Time bee pollen [BEE STINGS] Allergy Unknown UNKNOWN Verified 02/21/21 08:14 divalproex sodium Allergy Unknown UNKNOWN Verified 02/21/21 08:14 [From DEPAKOTE] erythromycin base Allergy Unknown UNKNOWN Verified 02/21/21 08:14 [ERYTHROMYCIN BASE] oxycodone [From PERCOCET] AdvReac Mild NAUSEA & Verified 02/21/21 08:14 VOMITING Active Medications: Current Medications Generic Name Dose Route Start Last Admin Trade Name Freq PRN Reason Stop Dose Admin Acetaminophen 650 mg 02/20/21 18:40 02/20/21 18:58 Acetaminophen 325 Mg Tablet PO 650 mg Q6H PRN Administration Pain, Mild (Pain Scale 1-3) Aspirin 81 mg 02/20/21 21:00 02/20/21 20:22 Aspirin 81 Mg Tab.Chew PO 81 mg BEDTIME AYLEEN Administration Cholestyramine Resin 8 gm 02/20/21 19:13 Cholestyramine (With Sugar) 4 Gm Powd.Pack PO QID PRN Diarrhea Clonazepam 1 mg 02/20/21 19:13 02/20/21 22:31 Clonazepam 1 Mg Tablet PO 1 mg BEDTIME PRN Administration Insomnia Docusate Sodium 100 mg 02/20/21 18:40 Docusate Sodium 100 Mg Capsule PO DAILY PRN Constipation Escitalopram Oxalate 10 mg 02/20/21 21:00 02/20/21 20:23 Escitalopram Oxalate 10 Mg Tablet PO 10 mg BEDTIME AYLEEN Administration Gabapentin 200 mg 02/20/21 21:00 02/20/21 20:22 Gabapentin 100 Mg Capsule PO 200 mg BEDTIME AYLEEN Administration Heparin Sodium (Porcine) 3,600 unit 02/20/21 17:40 Heparin Sodium,Porcine 5,000 Unit/Ml Vial 40 unit/kg (3600 unit) IVPUSH PROTOCOL BOLUS PRN 40 unit/kg - Heparin Protocol Protocol Heparin Sodium (Porcine) 7,100 unit 02/20/21 17:40 Heparin Sodium,Porcine 5,000 Unit/Ml Vial 80 unit/kg (7100 unit) IVPUSH PROTOCOL BOLUS PRN 80 unit/kg - Heparin Protocol Protocol Alteplase, Recombinant 5 mg/ 500 mls @ 50 mls/hr 02/21/21 09:30 02/21/21 10:10 Sodium Chloride IV 02/21/21 19:29 50 mls/hr ONCE ONE Administration Heparin Sodium/Sodium Chloride 25,000 unit in 250 mls @ 5 mls/hr 02/21/21 10:00 02/21/21 10:10 IVCONT 5 mls/hr .Q24H AYLEEN Administration Magnesium Hydroxide 30 ml 02/20/21 18:40 Milk Of Magnesia 30 Ml Oral.Susp PO DAILY PRN Constipation Melatonin 6 mg 02/20/21 18:40 02/20/21 21:03 Melatonin 3 Mg Tablet PO 6 mg BEDTIME PRN Administration Insomnia Non-Formulary Medication 1 appl 02/20/21 21:00 Estradiol VAGINAL BEDTIME AYLEEN Ondansetron HCl 4 mg 02/20/21 18:40 Ondansetron Hcl 4 Mg/2 Ml Vial IVPUSH Q8H PRN Nausea and Vomiting Pharmacy Consult 1 each 02/20/21 17:22 Consult Rx Perform Med Rec MISCELLANE ONCE PRN Consult order Sodium Chloride 3 ml 02/21/21 00:00 02/21/21 10:18 0.9 % Sodium Chloride Flush 3 Ml Syringe IVFLUSH 3 ml QSHIFT AYLEEN Administration Trazodone HCl 200 mg 02/20/21 21:00 02/20/21 20:22 Trazodone Hcl 100 Mg Tablet PO 200 mg BEDTIME AYLEEN Administration Valacyclovir HCl 1,000 mg 02/20/21 21:00 02/21/21 11:09 Valacycyclovir Hcl 1,000 Mg Tablet PO 1,000 mg BID AYLEEN Administration Valsartan 20 mg 02/20/21 21:00 02/20/21 20:22 Valsartan 40 Mg Tablet PO 20 mg BEDTIME AYLEEN Administration Verapamil HCl 240 mg 02/21/21 09:00 02/21/21 11:08 Verapamil Hcl Sr 240 Mg Tablet.Er PO 240 mg DAILY AYLEEN Administration Protocol Home Medications Medication Instructions Recorded Confirmed Last Taken Type aspirin 81 mg chewable tablet 81 mg PO BEDTIME 02/20/21 02/20/21 02/19/21 History cholestyramine (with sugar) 4 gram 8 g PO QID PRN 02/20/21 02/20/21 Unknown History powder for susp in a packet clonazepam 1 mg tablet 1 mg PO BEDTIME PRN 02/20/21 02/20/21 02/19/21 History escitalopram oxalate 10 mg tablet 1 tab PO BEDTIME 02/20/21 02/20/21 02/19/21 History estradiol 1 appl VAGINAL BEDTIME 02/20/21 02/20/21 02/19/21 History gabapentin 100 mg capsule 200 mg PO BEDTIME 02/20/21 02/20/21 02/19/21 History irbesartan 75 mg tablet 0.5 tab PO BEDTIME 02/20/21 02/20/21 02/19/21 History melatonin 5 mg tablet 5 mg PO BEDTIME 02/20/21 02/20/21 02/19/21 History trazodone 100 mg tablet 2 tab PO BEDTIME 02/20/21 02/20/21 02/19/21 History valacyclovir 1 gram tablet 1 tab PO BID 02/20/21 02/20/21 02/20/21 History verapamil 240 mg tablet,extended 1 tab PO DAILY 02/20/21 02/20/21 02/19/21 History release Physical Exam Vital Signs: Vital Signs: Last Vital Signs Temp 97.7 F 02/21/21 07:52 Pulse 72 02/21/21 11:08 Resp 20 02/21/21 10:47 BP 112/43 L 02/21/21 11:08 Pulse Ox 96 02/21/21 10:47 Body Mass Index 36.6 Awake alert appropriate no acute focal issues with strength or coordination from a neurological standpoint Bedside echo for cardiac exam shows normal nondistended IVC with all 4 chambers being normal and no primary valve or pericardial disease Chest clear bilaterally with no adventitious sounds Abdomen soft with good bowel sounds and no organomegaly Results Labs CBC & Chem 7: 02/22/21 05:32 02/22/21 05:32 Labs: Short CBC 02/20/21 Range/Units 14:13 WBC 11.1 H (4.8-10.8) X10*3/uL Hgb 13.2 (12.0-16.0) g/dl Hct 41.0 (37-47) % Plt Count 228 (160-400) X10*3/uL BMP 02/20/21 14:13 Sodium 143 Potassium 4.6 Chloride 107 Carbon Dioxide 25 BUN 18 H Creatinine 1.04 Calcium 10.0 Liver Function 02/20/21 Range/Units 14:13 Total Bilirubin 0.8 (0.0-1.0) mg/dL Direct Bilirubin 0.3 (0.0-0.5) mg/dL AST 47 H (5-31) U/L ALT 38 H (0-31) U/L Alkaline Phosphatase 176 H (39-117) U/L Albumin 4.4 (3.5-5.0) g/dL Assessment and Plan (1) DVT (deep venous thrombosis): Status: Acute (2) Pulmonary emboli: Status: Acute The plan is to leave the common femoral catheter in place and drip both tPA at as well as stable 500 units/hour of heparin and re-evaluate bi V knock her feet a in the morning and monitor coagulation numbers as well as hemoglobin
--- NOTE | 2021-02-21 11:29 | HO.PM.IMPN ---
Subjective Subjective Date of Service: 02/21/21 Interval History: Seen in f/u for extensive DVT and PE, s/p thrombolysis, doing well otherwise Review of Systems Gen: no fever Resp: no sob, no cough CV: no chest, no MOLINA, no leg edema GI: No n/v, no abd pain Neuro: No confusion Ext: left leg swelling Physical Exam Vital Signs: Vital Signs: Last Vital Signs Temp 97.7 F 02/21/21 07:52 Pulse 72 02/21/21 11:08 Resp 02/21/21 10:47 BP 112/43 L 02/21/21 11:08 Pulse Ox 96 02/21/21 10:47 Body Mass Index 36.6 Const: Other: Constitutional Awake and Alert, No apparent distress Neck Supple, No lymphadenopathy Cardiovascular RRR, No M/R/G, S1 S2, No S3 S4, No pedal edema Respiratory Lungs clear, No respiratory distress Gastrointestinal Non tender, Non-distended Skin No rash Neurological Alert & oriented x3 Psychological Appropriate affect Extensive swelling of the left leg, bit discolored compare to the other one Objective Data Current Medications Generic Name Dose Route Start Last Admin Trade Name Freq PRN Reason Stop Dose Admin Acetaminophen 650 mg 02/20/21 18:40 02/20/21 18:58 Acetaminophen 325 Mg Tablet PO 650 mg Q6H PRN Administration Pain, Mild (Pain Scale 1-3) Aspirin 81 mg 02/20/21 21:00 02/20/21 20:22 Aspirin 81 Mg Tab.Chew PO 81 mg BEDTIME AYLEEN Administration Cholestyramine Resin 8 gm 02/20/21 19:13 Cholestyramine (With Sugar) 4 Gm Powd.Pack PO QID PRN Diarrhea Clonazepam 1 mg 02/20/21 19:13 02/20/21 22:31 Clonazepam 1 Mg Tablet PO 1 mg BEDTIME PRN Administration Insomnia Docusate Sodium 100 mg 02/20/21 18:40 Docusate Sodium 100 Mg Capsule PO DAILY PRN Constipation Escitalopram Oxalate 10 mg 02/20/21 21:00 02/20/21 20:23 Escitalopram Oxalate 10 Mg Tablet PO 10 mg BEDTIME AYLEEN Administration Gabapentin 200 mg 02/20/21 21:00 02/20/21 20:22 Gabapentin 100 Mg Capsule PO 200 mg BEDTIME AYLEEN Administration Heparin Sodium (Porcine) 3,600 unit 02/20/21 17:40 Heparin Sodium,Porcine 5,000 Unit/Ml Vial 40 unit/kg (3600 unit) IVPUSH PROTOCOL BOLUS PRN 40 unit/kg - Heparin Protocol Protocol Heparin Sodium (Porcine) 7,100 unit 02/20/21 17:40 Heparin Sodium,Porcine 5,000 Unit/Ml Vial 80 unit/kg (7100 unit) IVPUSH PROTOCOL BOLUS PRN 80 unit/kg - Heparin Protocol Protocol Alteplase, Recombinant 5 mg/ 500 mls @ 50 mls/hr 02/21/21 09:30 02/21/21 10:10 Sodium Chloride IV 02/21/21 19:29 50 mls/hr ONCE ONE Administration Heparin Sodium/Sodium Chloride 25,000 unit in 250 mls @ 5 mls/hr 02/21/21 10:00 02/21/21 10:10 IVCONT 5 mls/hr .Q24H AYLEEN Administration Magnesium Hydroxide 30 ml 02/20/21 18:40 Milk Of Magnesia 30 Ml Oral.Susp PO DAILY PRN Constipation Melatonin 6 mg 02/20/21 18:40 02/20/21 21:03 Melatonin 3 Mg Tablet PO 6 mg BEDTIME PRN Administration Insomnia Non-Formulary Medication 1 appl 02/20/21 21:00 Estradiol VAGINAL BEDTIME AYLEEN Ondansetron HCl 4 mg 02/20/21 18:40 Ondansetron Hcl 4 Mg/2 Ml Vial IVPUSH Q8H PRN Nausea and Vomiting Pharmacy Consult 1 each 02/20/21 17:22 Consult Rx Perform Med Rec MISCELLANE ONCE PRN Consult order Sodium Chloride 3 ml 02/21/21 00:00 02/21/21 10:18 0.9 % Sodium Chloride Flush 3 Ml Syringe IVFLUSH 3 ml QSHIFT AYLEEN Administration Trazodone HCl 200 mg 02/20/21 21:00 02/20/21 20:22 Trazodone Hcl 100 Mg Tablet PO 200 mg BEDTIME AYLEEN Administration Valacyclovir HCl 1,000 mg 02/20/21 21:00 02/21/21 11:09 Valacycyclovir Hcl 1,000 Mg Tablet PO 1,000 mg BID AYLEEN Administration Valsartan 20 mg 02/20/21 21:00 02/20/21 20:22 Valsartan 40 Mg Tablet PO 20 mg BEDTIME AYLEEN Administration Verapamil HCl 240 mg 02/21/21 09:00 02/21/21 11:08 Verapamil Hcl Sr 240 Mg Tablet.Er PO 240 mg DAILY AYLEEN Administration Protocol Labs CBC & Chem 7: 02/20/21 14:13 02/20/21 14:13 Labs: Laboratory Results - last 24 hr 02/20/21 02/20/21 02/20/21 12:41 14:13 14:13 MCV 92.1 MCH 29.7 MCHC 32.2 RDW 12.8 Plt Count 228 MPV 10.3 Immature Gran % (Auto) 0.5 H Neut % (Auto) 78.8 H Lymph % (Auto) 12.2 L [place] % (Auto) 7.1 Eos % (Auto) 1.0 Baso % (Auto) 0.4 Lymph # (Auto) 1.4 [place] # (Auto) 0.8 Eos # (Auto) 0.1 Baso # (Auto) 0.0 Abs Immat Gran (auto) 0.05 H Absolute Neuts (auto) 8.8 H Absolute Nucleated RBC 0.000 Nucleated RBC % (auto) 0.0 Whole Blood PT TNP Whole Blood INR TNP PTT (Heparin Protocol) Anion Gap 16 Estim Creat Clear Calc 59.6 Estimated GFR 54 Random Glucose 115 Calcium 10.0 Total Bilirubin 0.8 Direct Bilirubin 0.3 AST 47 H ALT 38 H Alkaline Phosphatase 176 H Total Protein 7.0 Albumin 4.4 COVID-19 (VEDA) COVID-19 Clin Com 02/20/21 02/20/21 02/21/21 18:28 18:46 00:48 MCV MCH MCHC RDW Plt Count MPV Immature Gran % (Auto) Neut % (Auto) Lymph % (Auto) [place] % (Auto) Eos % (Auto) Baso % (Auto) Lymph # (Auto) [place] # (Auto) Eos # (Auto) Baso # (Auto) Abs Immat Gran (auto) Absolute Neuts (auto) Absolute Nucleated RBC Nucleated RBC % (auto) Whole Blood PT Whole Blood INR PTT (Heparin Protocol) 89.4 H 104.7 H Anion Gap Estim Creat Clear Calc Estimated GFR Random Glucose Calcium Total Bilirubin Direct Bilirubin AST ALT Alkaline Phosphatase Total Protein Albumin COVID-19 (VEDA) Negative COVID-19 Clin Com See Note 02/21/21 06:44 MCV MCH MCHC RDW Plt Count MPV Immature Gran % (Auto) Neut % (Auto) Lymph % (Auto) [place] % (Auto) Eos % (Auto) Baso % (Auto) Lymph # (Auto) [place] # (Auto) Eos # (Auto) Baso # (Auto) Abs Immat Gran (auto) Absolute Neuts (auto) Absolute Nucleated RBC Nucleated RBC % (auto) Whole Blood PT Whole Blood INR PTT (Heparin Protocol) 128.6 H* D Anion Gap Estim Creat Clear Calc Estimated GFR Random Glucose Calcium Total Bilirubin Direct Bilirubin AST ALT Alkaline Phosphatase Total Protein Albumin COVID-19 (VEDA) COVID-19 Clin Com Assessment and Plan (1) DVT (deep venous thrombosis): Status: Acute (2) Pulmonary emboli: Status: Acute Assessment and Plan: 61 year old female with extensive left DVT of unclear precipitant Plan: 1. Left leg DVT Pulmonary emboli Very high clot burden -getting thrombolysis by v(Dr. Ortega) - continue IV heparin, -Hematology consult 2 HTN--continue Irberstartan once med rec done 3. Anxiety depression--Clonapen, Celexa DVT prophylaxis--Heparin, Full code Quality Stroke Does the patient have a stroke diagnosis?: No VTE Prior VTE?: No VTE Risk Level:: Medical - moderate - high VTE Device Contraindication: N/A - Device Ordered VTE Drug Contraindication: N/A - Med Ordered
[2021-02-21 14:41] LABS: Fibrinogen 593 MG/DL (259-690)
[2021-02-21] MEDS: Butalb/Acetamin/Caff 50/325/40 TABLET 1 TAB PO (15:14)
[2021-02-21 19:30] LABS: Fibrinogen 567 MG/DL (259-690)
[2021-02-21 19:32] LABS: PTT Heparin Drip 46.4 SEC (53-77.9)
[2021-02-21] MEDS: Aspirin 81 MG TAB.CHEW PO (20:15)
[2021-02-21] MEDS: Escitalopram Oxalate 10 MG TABLET PO (20:16)
[2021-02-21] MEDS: Valsartan 40 MG TABLET 20 MG PO (20:16)
[2021-02-21] MEDS: traZODone HCL 100 MG TABLET 200 MG PO (20:16)
[2021-02-21] MEDS: Gabapentin 100 MG CAPSULE 200 MG PO (20:16)
[2021-02-21] MEDS: Acetaminophen 325 MG TABLET 650 MG PO (20:31)
[2021-02-21] MEDS: clonazePAM 1 MG TABLET PO (20:32)
[2021-02-21] MEDS: Melatonin 3 MG TABLET 6 MG PO (20:33)
[2021-02-21] MEDS: hydrOXYzine HCL 50 MG TABLET PO (21:55)
[2021-02-21] MEDS: Morphine Sulfate 2 MG/ML CARTRIDGE IVPUSH (23:38)
[2021-02-21 23:47] LABS: Fibrinogen 551 MG/DL (259-690)
[2021-02-22] VITALS (17 sets, daily range): BP systolic 84–152; BP diastolic 29–102; PULSE 47–75; RESP 11–21; TEMP 36.4; O2SAT 91–100; BMI 40.8
[2021-02-22 03:33] LABS: Fibrinogen 561 MG/DL (259-690)
[2021-02-22 03:36] LABS: PTT Heparin Drip 47.8 SEC (53-77.9)
[2021-02-22 06:02] LABS: MANUAL DIFF FLAG NO
[2021-02-22 06:10] LABS: Basophils Percent Auto 0.4 % (0-2); Eosinophils Absolute Auto 0.4 X10*3/uL (0.0-0.4); Eosinophils Percent Auto 5.5 % (0-4); Hemoglobin 11.8 g/dl (12.0-16.0); Imm Gran Abs Auto 0.03 X10*3/uL (0.00-0.03); Imm Gran Pct Auto 0.4 % (0.0-0.4); Lymphocytes Absolute Auto 2.3 X10*3/uL (1.2-4.9); Lymphocytes Percent Auto 34.3 % (20-40); Mean Corpuscular HGB Conc 31.9 g/dl (31.0-35.0); Mean Corpuscular Hemoglobin 29.6 pg (27.0-33.0); Mean Corpuscular Volume 92.7 fL (80-98); Mean Platelet Volume 10.6 fL (9.4-12.3); Monocytes Absolute Auto 0.6 X10*3/uL (0.1-1.2); Monocytes Percent Auto 8.8 % (2-11); Neutrophils Absolute Auto 3.4 X10*3/uL (2.0-8.3); Neutrophils Percent Auto 50.6 % (45-73); Platelet Count 179 X10*3/uL (160-400); Red Blood Count 3.99 X10*6/uL (4.20-5.50); Red Cell Distribution Width 12.8 % (11.0-16.0); White Blood Count 6.7 X10*3/uL (4.8-10.8)
[2021-02-22 06:20] LABS: Partial Thromboplastin Time 48.3 SEC (24.1-38.0)
[2021-02-22 06:22] LABS: Fibrinogen 535 MG/DL (259-690); INTERNATIONAL NORM RATIO 0.9 (0.9-1.1); Prothrombin Time 10.7 SEC (9.9-13.0)
[2021-02-22 06:42] LABS: Alanine Aminotransferase 26 U/L (0-31); Albumin Level 3.8 g/dL (3.5-5.0); Alkaline Phosphatase 142 U/L (39-117); Anion Gap 11 (12-20); Aspartate Amino Transferase 23 U/L (5-31); Bilirubin Direct 0.2 mg/dL (0.0-0.5); Bilirubin Total 0.7 mg/dL (0.0-1.0); Blood Urea Nitrogen 11 mg/dL (9-16); Calcium 8.8 mg/dL (8.4-10.2); Carbon Dioxide 24 mmol/L (22-29); Chloride 111 mmol/L (96-108); Creatinine Clr Calc Pharmacy 88.8; Estimated Glomerular Filt Rate > 60; Glucose Random 88 mg/dL (60-115); Magnesium 1.9 mg/dL (1.6-2.6); Phosphorus 3.5 mg/dL (2.7-4.5); Potassium 4.3 mmol/L (3.3-5.1); Sodium 142 mmol/L (135-145); Total Protein 6.2 g/dL (6.5-8.0)
[2021-02-22] MEDS: Butalb/Acetamin/Caff 50/325/40 TABLET 1 TAB PO ×2 (07:42→13:31)
--- NOTE | 2021-02-22 10:21 | W.PM.OPN ---
Operative Note Operative Note Date of Service: 02/22/21 Narrative: Angiogram report from [facility] Preoperative diagnosis: DVT with PE Postoperative diagnosis: Same Procedure: 1. Thrombolysis follow-up angiogram 2. Insertion of vena cava filter 3. Insertion of left common iliac vein stent Surgeon:Igor Ortega M.D. Power Shovel Engineer:Idania Anesthesia: Local with moderate conscious sedation for a total of 60minutes, performed by nh Specimens:none Drains:none Estimated blood loss: Less than 10 ml Indications: The patient presents for angiogram follow-up after overnight thrombolysis. Patient had extensive DVT with PE. Patient has undergone overlie thrombolytics. And now presents for follow-up. The patient has signed the informed consent after reviewing risks, complications, benefits, and alternatives previously discussed. The patient was given the opportunity to ask any additional questions or voice any concerns. All questions were answered to the patient's satisfaction. Procedure in detail: Patient was brought to the angiography suite prior to which a time-out was called for patient identification and site verification. Bilateral groins were prepped and draped in the standard surgical fashion. The prior catheter and sheath was then sterilized. The XtremeMortgageWorx catheter was used for follow-up imaging and contrast was instilled. Demonstrated an excellent result. At this point a Bard Brinda vena cava filter was then inserted. We then turned our attention to the left common iliac. There is significant stenosis still throughout and the entire vein appeared to be scarred. We then inserted and Abre 16 x 100 self expanding stent. This was then post plasty excellent result was achieved. Sheath was removed. Direct pressure was held for 10 minutes. Patient tolerated the procedure well and was returned to ICU with stable vitals. Interpretation of films: 1. Thrombolysis follow-up demonstrated resolution of clot 2. Appropriate placement of vena cava filter 3. Appropriate placement of left iliac vein stent. 4. Completion angiogram demonstrated good flow through the venous iliac system and inferior vena cava. Conclusion: 1. Successful thrombolysis and placement filter and stent. Patient will require formal anticoagulation This note is constructed using voice recognition software. While every effort has been made to ensure accuracy, hydropress operator errors may have been included. Thank you for allowing me to participate in the care of your patient. Yours sincerely, Igor Ortega MD, FACS, R.P.V.I.
[2021-02-22] MEDS: iohexoL 300 MG/ML 100 ML INFUS..BTL IV (11:19)
[2021-02-22 11:26] LABS: Hematocrit 36.1 % (37-47); Hemoglobin 11.6 g/dl (12.0-16.0); Mean Corpuscular HGB Conc 32.1 g/dl (31.0-35.0); Mean Corpuscular Hemoglobin 29.7 pg (27.0-33.0); Mean Corpuscular Volume 92.3 fL (80-98); Mean Platelet Volume 10.1 fL (9.4-12.3); Platelet Count 161 X10*3/uL (160-400); Red Blood Count 3.91 X10*6/uL (4.20-5.50); Red Cell Distribution Width 12.9 % (11.0-16.0); White Blood Count 6.3 X10*3/uL (4.8-10.8)
[2021-02-22 11:32] LABS: Prothrombin Time 11.4 SEC (9.9-13.0)
--- NOTE | 2021-02-22 11:33 | P.CNHO_ITS ---
Subjective - Subjective Chief complaint: Left leg swelling Patient: new to practice Consult date: 02/22/21 Primary Care Provider: Marc Dailey MD HPI - Consult Narrative Reason for consult: Left lower extremity DVT Narrative: Rhonda Bowles is a 61 year old female who is admitted with extensive left lower extremity DVT. She states that the swelling started 2 days prior to admission. She was not immobilized, reports no trauma or surgery. She has been walking although took a bus right to a casino in [place] over the weekend. She cysts in the last 3-4 years she has been sedentary and gained weight. She quit smoking many years ago and she stopped drinking alcohol about 4 years ago. No family history or personal history of thromboembolism. Apart from swelling and pain in the left leg she felt overall quite weak and dizzy. She did not have any significant pleuritic chest pain, shortness of breath or cough. No fever or chills. Her past history is significant for subarachnoid hemorrhage due to interest cerebral aneurysm bleed and subsequent obstructive hydrocephalus for which she underwent ventriculoperitoneal drain. This happened when she was 30 years of age. She has been up-to-date with screening mammogram and had a colonoscopy several years ago. Review of Systems - Constitutional Reports no additional constitutional complaints - Cardiovascular Reports no additional cardiovascular complaints - Respiratory Reports no additional respiratory complaints - Neurologic Reports no additional neurologic complaints, Denies abnormal gait Oncology Screenings - ECOG Performance Status ECOG Performance Status: 1 [facility] Medical History: Medical History (Last Updated 02/22/21 @ 10:38 by Maria R Cordova MD) Anxiety Hypertension Migraine Ruptured (congenital) cerebral aneurysm Sciatica Stroke Subarachnoid hemorrhage Surgical History: Surgical History (Last Reviewed 02/20/21 @ 18:56 by Hardeep Piper MD) History of cholecystectomy History of partial hysterectomy History of ventriculoperitoneal shunting Social History: Social History (Last Reviewed 02/20/21 @ 14:19 by Erica Bassett MD) Tobacco History: Patient Tobacco Use Status: Former Tobacco user Substance Use History: Use of substances other than those prescribed or required for medical reasons : No Currently Displaying Signs/Symptoms of Drug Intoxication Withdrawal: No Domestic Abuse History: Have you been hit, kicked, punched, or otherwise hurt by someone within the past year? If so, by whom?: No Advance Directives: Advance Directives: Yes Advance Directives Information Provided: Yes Advance Directives on File: No Advance Directives Date on File: 02/21/21 Homicidal Assessment: Do you have thoughts of harming others: None Do you have a plan to hurt others: No Plan Home Medications and Allergies Current Medications: Current Medications Generic Name Dose Route Start Last Admin Trade Name Freq PRN Reason Stop Dose Admin Acetaminophen 650 mg 02/20/21 18:40 02/21/21 20:31 Acetaminophen 325 Mg Tablet PO 650 mg Q6H PRN Administration Pain, Mild (Pain Scale 1-3) Acetaminophen/Butalbital/Caffeine 1 tab 02/21/21 14:02 02/22/21 07:42 Butalb/Acetamin/Caff 50/325/40 Tablet PO 1 tab Q4H PRN Administration Headache Aspirin 81 mg 02/20/21 21:00 02/21/21 20:15 Aspirin 81 Mg Tab.Chew PO 81 mg BEDTIME AYLEEN Administration Cholestyramine Resin 8 gm 02/20/21 19:13 Cholestyramine (With Sugar) 4 Gm Powd.Pack PO QID PRN Diarrhea Clonazepam 1 mg 02/20/21 19:13 02/21/21 20:32 Clonazepam 1 Mg Tablet PO 1 mg BEDTIME PRN Administration Insomnia Docusate Sodium 100 mg 02/20/21 18:40 Docusate Sodium 100 Mg Capsule PO DAILY PRN Constipation Enoxaparin Sodium 100 mg 02/22/21 12:00 Enoxaparin Sodium 100 Mg/Ml Syringe 1 mg/kg (100 mg) SUBCUT Q12H AYLEEN Escitalopram Oxalate 10 mg 02/20/21 21:00 02/21/21 20:16 Escitalopram Oxalate 10 Mg Tablet PO 10 mg BEDTIME AYLEEN Administration Gabapentin 200 mg 02/20/21 21:00 02/21/21 20:16 Gabapentin 100 Mg Capsule PO 200 mg BEDTIME AYLEEN Administration Magnesium Hydroxide 30 ml 02/20/21 18:40 Milk Of Magnesia 30 Ml Oral.Susp PO DAILY PRN Constipation Melatonin 6 mg 02/20/21 18:40 02/21/21 20:33 Melatonin 3 Mg Tablet PO 6 mg BEDTIME PRN Administration Insomnia Non-Formulary Medication 1 appl 02/20/21 21:00 Estradiol VAGINAL BEDTIME AYLEEN Ondansetron HCl 4 mg 02/20/21 18:40 Ondansetron Hcl 4 Mg/2 Ml Vial IVPUSH Q8H PRN Nausea and Vomiting Pharmacy Consult 1 each 02/20/21 17:22 Consult Rx Perform Med Rec MISCELLANE ONCE PRN Consult order Sodium Chloride 3 ml 02/21/21 00:00 02/22/21 11:20 0.9 % Sodium Chloride Flush 3 Ml Syringe IVFLUSH Not Given QSHIFT AYLEEN Trazodone HCl 200 mg 02/20/21 21:00 02/21/21 20:16 Trazodone Hcl 100 Mg Tablet PO 200 mg BEDTIME AYLEEN Administration Valacyclovir HCl 1,000 mg 02/20/21 21:00 02/22/21 07:42 Valacycyclovir Hcl 1,000 Mg Tablet PO 1,000 mg BID AYLEEN Administration Valsartan 20 mg 02/20/21 21:00 02/21/21 20:16 Valsartan 40 Mg Tablet PO 20 mg BEDTIME AYLEEN Administration Verapamil HCl 240 mg 02/21/21 09:00 02/22/21 07:42 Verapamil Hcl Sr 240 Mg Tablet.Er PO Not Given DAILY [facility] Protocol Home Medications Medication Instructions Recorded Confirmed Type aspirin 81 mg chewable tablet 81 mg PO BEDTIME 02/20/21 02/20/21 History cholestyramine (with sugar) 4 gram 8 g PO QID PRN 02/20/21 02/20/21 History powder for susp in a packet clonazepam 1 mg tablet 1 mg PO BEDTIME PRN 02/20/21 02/20/21 History escitalopram oxalate 10 mg tablet 1 tab PO BEDTIME 02/20/21 02/20/21 History estradiol 1 appl VAGINAL BEDTIME 02/20/21 02/20/21 History gabapentin 100 mg capsule 200 mg PO BEDTIME 02/20/21 02/20/21 History irbesartan 75 mg tablet 0.5 tab PO BEDTIME 02/20/21 02/20/21 History melatonin 5 mg tablet 5 mg PO BEDTIME 02/20/21 02/20/21 History trazodone 100 mg tablet 2 tab PO BEDTIME 02/20/21 02/20/21 History valacyclovir 1 gram tablet 1 tab PO BID 02/20/21 02/20/21 History verapamil 240 mg tablet,extended 1 tab PO DAILY 02/20/21 02/20/21 History release Allergies Allergy/AdvReac Type Severity Reaction Status Date / Time bee pollen [BEE STINGS] Allergy Unknown UNKNOWN Verified 02/21/21 08:14 divalproex sodium Allergy Unknown UNKNOWN Verified 02/21/21 08:14 [From DEPAKOTE] erythromycin base Allergy Unknown UNKNOWN Verified 02/21/21 08:14 [ERYTHROMYCIN BASE] oxycodone [From PERCOCET] AdvReac Mild NAUSEA & Verified 02/21/21 08:14 VOMITING Physical Exam Vital signs: Vital Signs Temp 97.8 F 02/21/21 19:00 Pulse 62 02/22/21 11:00 Resp 13 02/22/21 11:00 BP 127/102 H 02/22/21 11:00 Pulse Ox 97 02/22/21 11:00 Intake & Output 02/21/21 02/22/21 02/22/21 18:59 06:59 18:59 Intake Total 1881.667 / 2621.667 740.000 / 2621.667 1000 / 1000 Output Total 200 / 200 Balance 1881.667 / 2421.667 540.000 / 2421.667 1000 / 1000 Urine Output (Average ml/kg/hr) 0.16 0.16 Intake: Intake, Oral Amount 480 / 720 240 / 720 Intake, IV Amount 1401.667 / 1901.667 500.000 / 2440.193 9415 / 1000 Alteplase Cath Clear 5 mg In 0. 401.667 / 901.667 500.000 / 901.667 500 / 500 9 % Sodium Chloride 500 ml @ 50 mls/hr IV Q8H AYLEEN Rx#: [id number] 0.9 % Sodium Chloride 500 ml @ 500 / 500 20 mls/hr IVCONT .Q24H AYLEEN Rx#: [id number] Dextrose 5 % and 0.45 % NaCl 1, 1000 / 1000 000 ml @ 100 mls/hr IVCONT . Q10H AYLEEN Rx#:[id number] Heparin Sodium,Porcine/1/2NS 25 0 / 0 0 / 0 ,000 unit In 250 ml @ 5 mls/hr IVCONT .Q24H AYLEEN Rx#:[id number] Output: Output, Urine Amount (Catheter) 200 / 200 Female External 200 / 200 Other: Lunch % Eaten 75% Dinner % Eaten 75% Number of Incontinent Voids 1 Urine Color Yellow Weight 90.9 kg 101.3 kg [place] Weight in Grams [id number] Weight 101.3 kg - Constitutional Present: no acute distress - Routine HEENT Exam Head: Present: normal inspection Eye: Present: PERRL - Routine Neck Exam Absent: lymphadenopathy - Routine Respiratory Exam Present: CTAB - Routine Cardiovascular Exam Cardiovascular: Present: S1, S2 - Routine Extremities Exam Present: pedal edema, tenderness Comments: Extensive swelling of left lower extremity mild erythema diffusely. - Routine Skin Exam Present: ecchymosis Hem/Onc Consult Result - Labs CBC & Chem 7: 02/22/21 11:13 02/22/21 05:32 Labs: Short CBC 02/22/21 02/22/21 Range/Units 05:32 11:13 WBC 6.7 6.3 (4.8-10.8) X10*3/uL Hgb 11.8 L 11.6 L (12.0-16.0) g/dl Hct 37.0 36.1 L (37-47) % Plt Count 179 161 (160-400) X10*3/uL BMP 02/22/21 05:32 Sodium 142 Potassium 4.3 Chloride 111 H Carbon Dioxide 24 BUN 11 Creatinine 0.75 Calcium 8.8 D Liver Function 02/22/21 Range/Units 05:32 Total Bilirubin 0.7 (0.0-1.0) mg/dL Direct Bilirubin 0.2 (0.0-0.5) mg/dL AST 23 D (5-31) U/L ALT 26 (0-31) U/L Alkaline Phosphatase 142 H (39-117) U/L Albumin 3.8 (3.5-5.0) g/dL Assessment and Plan (1) DVT (deep venous thrombosis) Status: Acute Qualifiers: DVT location: lower extremity Laterality: left 1. This is a 61-year-old woman admitted with spontaneous extensive left lower extremity deep vein thrombosis involving common femoral vein, greater saphenous vein, profunda vein as well as popliteal vein. CT angiogram revealed small subsegmental pulmonary embolism in the right lower lobe. She has undergone thrombolysis with tPA after IVC filter placement. She is on unfractionated heparin and will be switched over to Lovenox b.i.d.. Although patient is obese and somewhat sedentary, no clear inciting risk factors for DVT. She is up-to-date on screening tests such as mammogram and colonoscopy. No family history of thromboembolism. She is a candidate for long-term anticoagulation as she developed an extensive clot in the unprovoked setting. No role of thrombophilia testing, but lupus anticoagulant should be ruled out as the new oral anticoagulants are not recommended if positive for lupus anticoagulant. This can be performed as outpatient. I thank you for this consultation. I will be happy to see her upon discharge.
[2021-02-22 11:35] LABS: Partial Thromboplastin Time 35.2 SEC (24.1-38.0)
[2021-02-22] MEDS: Acetaminophen 325 MG TABLET 650 MG PO (11:43)
[2021-02-22] MEDS: Enoxaparin Sodium 100 MG/ML SYRINGE SUBCUT (11:59)
--- NOTE | 2021-02-22 14:53 | P.PNCC_ITS ---
Subjective Subjective Date of Service: 02/22/21 Interval History: 61-year-old female who presented with extensive thrombotic burden in the left common femoral system but involving as well the low left iliac own almost up to the inferior vena cava making 1 very suspicious about an underlying carcinoma thus process and had a direct vascular drip of both tPA and a stable dose of heparin with significant reduction of clot burden and the and subsequent stenting of the of the of the iliac venous system and feel symptomatic Claribel much better with the LEs heaviness of the leg I can not palpate a pulse but she is warm well perfused with good motor function of the left leg and no bleeding from the groin and this is 3 hours after a dose of Lovenox Critical Care Time (minutes): 30 Physical Exam Vital Signs: Vital Signs: Last Vital Signs Temp 97.5 F 02/22/21 13:00 Pulse 75 02/22/21 14:00 Resp 14 02/22/21 14:00 BP 113/60 02/22/21 14:00 Pulse Ox 96 02/22/21 14:00 Body Mass Index 40.8 Awake alert nonfocal Cardiac exam with bedside echo shows globally normal function Chest is is clear with no adventitious sounds Abdomen no bruits good bowel sounds no organomegaly Skin warm well perfused with no rubor no livedo Objective Data Labs CBC & Chem 7: 02/22/21 11:13 02/22/21 05:32 Labs: Laboratory Results - last 24 hr 02/21/21 02/21/21 02/21/21 19:10 19:10 23:25 WBC RBC Hgb Hct MCV MCH MCHC RDW Plt Count MPV Immature Gran % (Auto) Neut % (Auto) Lymph % (Auto) [place] % (Auto) Eos % (Auto) Baso % (Auto) Lymph # (Auto) [place] # (Auto) Eos # (Auto) Baso # (Auto) Abs Immat Gran (auto) Absolute Neuts (auto) Absolute Nucleated RBC Nucleated RBC % (auto) PT INR APTT PTT (Heparin Protocol) 46.4 L D Fibrinogen 567 551 Sodium Potassium Chloride Carbon Dioxide Anion Gap BUN Creatinine Estim Creat Clear Calc Estimated GFR Random Glucose Calcium Phosphorus Magnesium Total Bilirubin Direct Bilirubin AST ALT Alkaline Phosphatase Total Protein Albumin 02/22/21 02/22/21 02/22/21 03:11 05:32 05:32 WBC 6.7 RBC 3.99 L Hgb 11.8 L Hct 37.0 MCV 92.7 MCH 29.6 MCHC 31.9 RDW 12.8 Plt Count 179 MPV 10.6 Immature Gran % (Auto) 0.4 Neut % (Auto) 50.6 Lymph % (Auto) 34.3 [place] % (Auto) 8.8 Eos % (Auto) 5.5 H Baso % (Auto) 0.4 Lymph # (Auto) 2.3 [place] # (Auto) 0.6 Eos # (Auto) 0.4 Baso # (Auto) 0.0 Abs Immat Gran (auto) 0.03 Absolute Neuts (auto) 3.4 Absolute Nucleated RBC 0.000 Nucleated RBC % (auto) 0.0 PT 10.7 INR 0.9 APTT 48.3 H PTT (Heparin Protocol) 47.8 L Fibrinogen 561 535 Sodium Potassium Chloride Carbon Dioxide Anion Gap BUN Creatinine Estim Creat Clear Calc Estimated GFR Random Glucose Calcium Phosphorus Magnesium Total Bilirubin Direct Bilirubin AST ALT Alkaline Phosphatase Total Protein Albumin 02/22/21 02/22/21 02/22/21 05:32 05:32 05:32 WBC RBC Hgb Hct MCV MCH MCHC RDW Plt Count MPV Immature Gran % (Auto) Neut % (Auto) Lymph % (Auto) [place] % (Auto) Eos % (Auto) Baso % (Auto) Lymph # (Auto) [place] # (Auto) Eos # (Auto) Baso # (Auto) Abs Immat Gran (auto) Absolute Neuts (auto) Absolute Nucleated RBC Nucleated RBC % (auto) PT INR APTT PTT (Heparin Protocol) Fibrinogen Cancelled Sodium 142 Potassium 4.3 Chloride 111 H Carbon Dioxide 24 Anion Gap 11 L BUN 11 Creatinine 0.75 Estim Creat Clear Calc 88.8 Estimated GFR > 60 Random Glucose 88 Calcium 8.8 D Phosphorus 3.5 Magnesium 1.9 Total Bilirubin 0.7 Direct Bilirubin 0.2 AST 23 D ALT 26 Alkaline Phosphatase 142 H Total Protein 6.2 L Albumin 3.8 02/22/21 02/22/21 11:13 11:13 WBC 6.3 RBC 3.91 L Hgb 11.6 L Hct 36.1 L MCV 92.3 MCH 29.7 MCHC 32.1 RDW 12.9 Plt Count 161 MPV 10.1 Immature Gran % (Auto) Neut % (Auto) Lymph % (Auto) [place] % (Auto) Eos % (Auto) Baso % (Auto) Lymph # (Auto) [place] # (Auto) Eos # (Auto) Baso # (Auto) Abs Immat Gran (auto) Absolute Neuts (auto) Absolute Nucleated RBC 0.000 Nucleated RBC % (auto) 0.0 PT 11.4 INR 1.0 APTT 35.2 D PTT (Heparin Protocol) Fibrinogen Sodium Potassium Chloride Carbon Dioxide Anion Gap BUN Creatinine Estim Creat Clear Calc Estimated GFR Random Glucose Calcium Phosphorus Magnesium Total Bilirubin Direct Bilirubin AST ALT Alkaline Phosphatase Total Protein Albumin Quality Stroke Does the patient have a stroke diagnosis?: No VTE Prior VTE?: No VTE Risk Level:: Medical - moderate - high VTE Device Contraindication: N/A - Device Ordered VTE Drug Contraindication: N/A - Med Ordered Progress Note: A&P Assessment and plan (1) Pulmonary emboli: Status: Acute (2) DVT (deep venous thrombosis): Status: Acute Assessment and Plan: So the plan had been initiating full-dose Lovenox to treat her as a deep vein thrombosis in this case 1 milligram/kilogram every 12 hours and is thus far no complication and I think Hematology-Oncology consult to look for an underlying carcinoma or possibly an inherited hypercoagulable state
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
--- NOTE | 2021-02-22 19:47 | PC.NURSE ---
assumed care at 0700. Patient alert and oriented; neuros appear to be at baseline status, with baseline migraines responding well to PRN fioricet; baseline short term memory loss at times per patient and family; baseline light sensitivity and right foot foot drop. Protocol for TPA maintained. thrombolysis catheter taken out of left groin at IR today, patient returned about 10 am; site in left groin intact to surgical glue, no hematoma or signs of bleeding. left lower leg with no dorsalis pedis pulse, and does have posterior tibial left pulse to doppler only. No change in this today. Patient with some residual redness to left lower limb, and does have reddened, swollen, bruised area to right AC related to infiltrated IV on 02/20, which is also circled with surgical marker.
[2021-02-22] MEDS: Escitalopram Oxalate 10 MG TABLET PO (20:52)
[2021-02-22] MEDS: Gabapentin 100 MG CAPSULE 200 MG PO (20:52)
[2021-02-22] MEDS: traZODone HCL 100 MG TABLET 200 MG PO (20:52)
[2021-02-22] MEDS: clonazePAM 1 MG TABLET PO (20:52)
[2021-02-22] MEDS: Aspirin 81 MG TAB.CHEW PO (20:53)
[2021-02-22] MEDS: Valsartan 40 MG TABLET 20 MG PO (20:53)
[2021-02-22] MEDS: Melatonin 3 MG TABLET 6 MG PO (20:53)
[2021-02-22] MEDS: 0.9 % Sodium Chloride Flush 3 ML SYRINGE IVFLUSH (20:54)
[2021-02-23] VITALS (8 sets, daily range): BP systolic 105–129; BP diastolic 51–67; PULSE 66–91; RESP 18–20; TEMP 36.5–37.1; O2SAT 93–98
[2021-02-23] MEDS: Enoxaparin Sodium 100 MG/ML SYRINGE SUBCUT ×2 (00:07→11:24)
[2021-02-23] MEDS: Butalb/Acetamin/Caff 50/325/40 TABLET 1 TAB PO ×4 (00:20→20:39)
[2021-02-23 01:28] LABS: Glucose Urine UA NEG (NEG); Leukocyte Esterase Urine NEG (NEG); Nitrite Urine NEG (NEG); Specific Gravity - Urine 1.015 (1.005-1.025); Urine Blood 1+ (NEG); Urine Ketones NEG (NEG); Urine Protein NEG (NEG-TRACE)
[2021-02-23 02:00] LABS: Appearance Urine CLEAR; Color Urine YELLOW
[2021-02-23 02:01] LABS: Bacteria Urine TRACE /LPF; RBC Urine 0-2 /HPF (0); Squamous Epithelial Cell Urine TRACE /LPF; Uric Acid Crystals Urine 1+ /LPF; WBC Urine 0-2 /HPF (0-4)
[2021-02-23 06:20] LABS: Hematocrit 35.7 % (37-47); Hemoglobin 11.4 g/dl (12.0-16.0); Mean Corpuscular HGB Conc 31.9 g/dl (31.0-35.0); Mean Corpuscular Hemoglobin 29.3 pg (27.0-33.0); Mean Corpuscular Volume 91.8 fL (80-98); Mean Platelet Volume 10.6 fL (9.4-12.3); Platelet Count 200 X10*3/uL (160-400); Red Blood Count 3.89 X10*6/uL (4.20-5.50); Red Cell Distribution Width 12.8 % (11.0-16.0); White Blood Count 8.5 X10*3/uL (4.8-10.8)
[2021-02-23 06:42] LABS: Alanine Aminotransferase 22 U/L (0-31); Albumin Level 3.7 g/dL (3.5-5.0); Alkaline Phosphatase 141 U/L (39-117); Anion Gap 11 (12-20); Aspartate Amino Transferase 17 U/L (5-31); Bilirubin Direct < 0.2 mg/dL (0.0-0.5); Bilirubin Total 0.4 mg/dL (0.0-1.0); Blood Urea Nitrogen 11 mg/dL (9-16); Calcium 9.4 mg/dL (8.4-10.2); Carbon Dioxide 27 mmol/L (22-29); Chloride 108 mmol/L (96-108); Creatinine Clr Calc Pharmacy 84.3; Estimated Glomerular Filt Rate > 60; Glucose Random 101 mg/dL (60-115); Sodium 142 mmol/L (135-145)
[2021-02-23 07:00] LABS: Prothrombin Time 11.7 SEC (9.9-13.0)
[2021-02-23] MEDS: 0.9 % Sodium Chloride Flush 3 ML SYRINGE IVFLUSH ×3 (08:27→20:19)
[2021-02-23] MEDS: VerapamiL HCL SR 240 MG TABLET.ER PO (08:28)
--- NOTE | 2021-02-23 09:22 | HO.PM.IMPN ---
Subjective Subjective Date of Service: 02/23/21 Interval History: Seen in f/u extensive left lower ext DVT, s/p tPA, stenting. Has persistent swelling, some pain, no cyanosis, difficlut to palpate pulse Physical Exam Vital Signs: Vital Signs: Last Vital Signs Temp 97.8 F 02/23/21 08:00 Pulse 70 02/23/21 08:28 Resp 18 02/23/21 08:00 BP 128/57 L 02/23/21 08:28 Pulse Ox 98 02/23/21 08:00 Body Mass Index 40.8 Const: Other: Constitutional Awake and Alert, No apparent distress Cardiovascular RRR, No M/R/G, S1 S2, No S3 S4, No pedal edema Respiratory Lungs clear, No respiratory distress Gastrointestinal Non tender, Non-distended Skin No rash Neurological Alert & oriented x3 Psychological Appropriate affect Extensive swelling of the left leg up to groin, some tendernes, no cyanosis Objective Data Current Medications Generic Name Dose Route Start Last Admin Trade Name Freq PRN Reason Stop Dose Admin Acetaminophen 650 mg 02/20/21 18:40 02/22/21 11:43 Acetaminophen 325 Mg Tablet PO 650 mg Q6H PRN Administration Pain, Mild (Pain Scale 1-3) Acetaminophen/Butalbital/Caffeine 1 tab 02/21/21 14:02 02/23/21 06:24 Butalb/Acetamin/Caff 50/325/40 Tablet PO 1 tab Q4H PRN Administration Headache Aspirin 81 mg 02/20/21 21:00 02/22/21 20:53 Aspirin 81 Mg Tab.Chew PO 81 mg BEDTIME AYLEEN Administration Cholestyramine Resin 8 gm 02/20/21 19:13 Cholestyramine (With Sugar) 4 Gm Powd.Pack PO QID PRN Diarrhea Clonazepam 1 mg 02/20/21 19:13 02/22/21 20:52 Clonazepam 1 Mg Tablet PO 1 mg BEDTIME PRN Administration Insomnia Docusate Sodium 100 mg 02/20/21 18:40 Docusate Sodium 100 Mg Capsule PO DAILY PRN Constipation Enoxaparin Sodium 100 mg 02/22/21 12:00 02/23/21 00:07 Enoxaparin Sodium 100 Mg/Ml Syringe 1 mg/kg (100 mg) 100 mg SUBCUT Administration Q12H [facility] Escitalopram Oxalate 10 mg 02/20/21 21:00 02/22/21 20:52 Escitalopram Oxalate 10 Mg Tablet PO 10 mg BEDTIME AYLEEN Administration Gabapentin 200 mg 02/20/21 21:00 02/22/21 20:52 Gabapentin 100 Mg Capsule PO 200 mg BEDTIME AYLEEN Administration Magnesium Hydroxide 30 ml 02/20/21 18:40 Milk Of Magnesia 30 Ml Oral.Susp PO DAILY PRN Constipation Melatonin 6 mg 02/20/21 18:40 02/22/21 20:53 Melatonin 3 Mg Tablet PO 6 mg BEDTIME PRN Administration Insomnia Non-Formulary Medication 1 appl 02/20/21 21:00 Estradiol VAGINAL BEDTIME AYLEEN Ondansetron HCl 4 mg 02/20/21 18:40 Ondansetron Hcl 4 Mg/2 Ml Vial IVPUSH Q8H PRN Nausea and Vomiting Pharmacy Consult 1 each 02/20/21 17:22 Consult Rx Perform Med Rec MISCELLANE ONCE PRN Consult order Sodium Chloride 3 ml 02/21/21 00:00 02/23/21 08:27 0.9 % Sodium Chloride Flush 3 Ml Syringe IVFLUSH 3 ml QSHIFT AYLEEN Administration Trazodone HCl 200 mg 02/20/21 21:00 02/22/21 20:52 Trazodone Hcl 100 Mg Tablet PO 200 mg BEDTIME AYLEEN Administration Valacyclovir HCl 1,000 mg 02/20/21 21:00 02/23/21 08:27 Valacycyclovir Hcl 1,000 Mg Tablet PO 1,000 mg BID AYLEEN Administration Valsartan 20 mg 02/20/21 21:00 02/22/21 20:53 Valsartan 40 Mg Tablet PO 20 mg BEDTIME AYLEEN Administration Verapamil HCl 240 mg 02/21/21 09:00 02/23/21 08:28 Verapamil Hcl Sr 240 Mg Tablet.Er PO 240 mg DAILY AYLEEN Administration Protocol Labs CBC & Chem 7: 02/23/21 05:38 02/23/21 05:39 Assessment and Plan (1) Pulmonary emboli: Status: Acute (2) DVT (deep venous thrombosis): Status: Acute (3) Hypertension: Status: Acute Assessment and Plan: 61/F with unprovoked extensive left lower extremity DVT extending all the way up s/p tPA and Plan: 1. Left leg DVT 2. robert Pulmonary emboli Very high clot burden -s/p tPA 02/21 -s/p iliac stent and IVC on 02/22 - changed from heparin to Levenox -Hematology consult seen--up to date on colonoscopy and liane, no thrombophilia work up indicate -will change to NOAC proior to dc 2 HTN--continue Irberstartan once med rec done 3. Anxiety depression--Clonapen, Celexa DVT prophylaxis--Heparin, Full code Quality Stroke Does the patient have a stroke diagnosis?: No VTE Prior VTE?: No VTE Risk Level:: Medical - moderate - high VTE Device Contraindication: N/A - Device Ordered VTE Drug Contraindication: N/A - Med Ordered
[2021-02-23] MEDS: Acetaminophen 325 MG TABLET 650 MG PO (14:05)
[2021-02-23] MEDS: oxyCODONE HCl Immed Release 5 MG TABLET PO (17:00)
[2021-02-23] MEDS: Milk of Magnesia 30 ML ORAL.SUSP PO (17:00)
[2021-02-23] MEDS: Aspirin 81 MG TAB.CHEW PO (20:18)
[2021-02-23] MEDS: Valsartan 40 MG TABLET 20 MG PO (20:18)
[2021-02-23] MEDS: Escitalopram Oxalate 10 MG TABLET PO (20:19)
[2021-02-23] MEDS: Melatonin 3 MG TABLET 6 MG PO (20:19)
[2021-02-23] MEDS: clonazePAM 1 MG TABLET PO (20:19)
[2021-02-23] MEDS: traZODone HCL 100 MG TABLET 200 MG PO (20:19)
[2021-02-23] MEDS: Gabapentin 100 MG CAPSULE 200 MG PO (20:19)
[2021-02-24] VITALS (9 sets, daily range): BP systolic 90–122; BP diastolic 50–68; PULSE 64–77; RESP 18; TEMP 36.1–37.2; O2SAT 91–96
[2021-02-24] MEDS: Enoxaparin Sodium 100 MG/ML SYRINGE SUBCUT ×2 (00:52→13:37)
[2021-02-24] MEDS: VerapamiL HCL SR 240 MG TABLET.ER PO (07:57)
[2021-02-24] MEDS: oxyCODONE HCl Immed Release 5 MG TABLET PO (07:58)
[2021-02-24] MEDS: Butalb/Acetamin/Caff 50/325/40 TABLET 1 TAB PO ×2 (07:58→13:37)
[2021-02-24] MEDS: 0.9 % Sodium Chloride Flush 3 ML SYRINGE IVFLUSH ×2 (07:59→16:03)
--- NOTE | 2021-02-24 08:14 | HO.PM.IMPN ---
Subjective Subjective Date of Service: 02/26/21 Interval History: Seen in f/u extensive left lower ext DVT, s/p tPA, stenting. Has persistent swelling, some pain, no cyanosis, some headache this morning Review of Systems Gen: no fever Resp: no sob, no cough CV: no chest, no MOLINA, no leg edema GI: No n/v, no abd pain Neuro: No confusion Ext: left leg swelling Physical Exam Vital Signs: Vital Signs: Last Vital Signs Temp 98 F 02/24/21 07:08 Pulse 74 02/24/21 07:57 Resp 18 02/24/21 07:08 BP 122/52 L 02/24/21 07:57 Pulse Ox 96 02/24/21 07:08 Body Mass Index 40.8 Const: Other: Constitutional Awake and Alert, No apparent distress Cardiovascular RRR, No M/R/G, S1 S2, No S3 S4, No pedal edema Respiratory Lungs clear, No respiratory distress Gastrointestinal Non tender, Non-distended Skin No rash Neurological Alert & oriented x3 Psychological Appropriate affect Extensive swelling of the left leg up to groin, some tendernes, no cyanosis Objective Data Current Medications Generic Name Dose Route Start Last Admin Trade Name Freq PRN Reason Stop Dose Admin Acetaminophen 650 mg 02/20/21 18:40 02/23/21 14:05 Acetaminophen 325 Mg Tablet PO 650 mg Q6H PRN Administration Pain, Mild (Pain Scale 1-3) Acetaminophen/Butalbital/Caffeine 1 tab 02/21/21 14:02 02/24/21 07:58 Butalb/Acetamin/Caff 50/325/40 Tablet PO 1 tab Q4H PRN Administration Headache Aspirin 81 mg 02/20/21 21:00 02/23/21 20:18 Aspirin 81 Mg Tab.Chew PO 81 mg BEDTIME AYLEEN Administration Cholestyramine Resin 8 gm 02/20/21 19:13 Cholestyramine (With Sugar) 4 Gm Powd.Pack PO QID PRN Diarrhea Clonazepam 1 mg 02/20/21 19:13 02/23/21 20:19 Clonazepam 1 Mg Tablet PO 1 mg BEDTIME PRN Administration Insomnia Docusate Sodium 100 mg 02/20/21 18:40 Docusate Sodium 100 Mg Capsule PO DAILY PRN Constipation Enoxaparin Sodium 100 mg 02/22/21 12:00 02/24/21 00:52 Enoxaparin Sodium 100 Mg/Ml Syringe 1 mg/kg (100 mg) 100 mg SUBCUT Administration Q12H [facility] Escitalopram Oxalate 10 mg 02/20/21 21:00 02/23/21 20:19 Escitalopram Oxalate 10 Mg Tablet PO 10 mg BEDTIME AYLEEN Administration Gabapentin 200 mg 02/20/21 21:00 02/23/21 20:19 Gabapentin 100 Mg Capsule PO 200 mg BEDTIME AYLEEN Administration Magnesium Hydroxide 30 ml 02/20/21 18:40 02/23/21 17:00 Milk Of Magnesia 30 Ml Oral.Susp PO 30 ml DAILY PRN Administration Constipation Melatonin 6 mg 02/20/21 18:40 02/23/21 20:19 Melatonin 3 Mg Tablet PO 6 mg BEDTIME PRN Administration Insomnia Ondansetron HCl 4 mg 02/20/21 18:40 02/23/21 11:49 Ondansetron Hcl 4 Mg/2 Ml Vial IVPUSH 4 mg Q8H PRN Administration Nausea and Vomiting Oxycodone HCl 5 mg 02/23/21 16:43 02/24/21 07:58 Oxycodone Hcl Immed Release 5 Mg Tablet PO 5 mg Q6H PRN Administration Pain, Severe (Pain Scale 7-10) Pharmacy Consult 1 each 02/20/21 17:22 Consult Rx Perform Med Rec MISCELLANE ONCE PRN Consult order Sodium Chloride 3 ml 02/21/21 00:00 02/24/21 07:59 0.9 % Sodium Chloride Flush 3 Ml Syringe IVFLUSH 3 ml QSHIFT AYLEEN Administration Trazodone HCl 200 mg 02/20/21 21:00 02/23/21 20:19 Trazodone Hcl 100 Mg Tablet PO 200 mg BEDTIME AYLEEN Administration Valacyclovir HCl 1,000 mg 02/20/21 21:00 02/24/21 07:59 Valacycyclovir Hcl 1,000 Mg Tablet PO 1,000 mg BID AYLEEN Administration Valsartan 20 mg 02/20/21 21:00 02/23/21 20:18 Valsartan 40 Mg Tablet PO 20 mg BEDTIME AYLEEN Administration Verapamil HCl 240 mg 02/21/21 09:00 02/24/21 07:57 Verapamil Hcl Sr 240 Mg Tablet.Er PO 240 mg DAILY AYLEEN Administration Protocol Labs CBC & Chem 7: 02/26/21 08:37 02/23/21 05:39 Assessment and Plan (1) Hypertension: Status: Acute (2) Pulmonary emboli: Status: Acute (3) DVT (deep venous thrombosis): Status: Acute Assessment and Plan: 61/F with unprovoked extensive left lower extremity DVT extending all the way up s/p tPA and Plan: 1. Left leg DVT 2. robert Pulmonary emboli Very high clot burden -s/p tPA 02/21 -s/p iliac stent and IVC on 02/22 - changed from heparin to Levenox -Hematology consult seen--up to date on colonoscopy and liane, no thrombophilia work up indicate -will change to NOAC proior to dc 2 HTN--continue Irberstartan (Valsartant here) 3. Anxiety depression--Clonapin, Celexa DVT prophylaxis--Lovenox Full code Quality Stroke Does the patient have a stroke diagnosis?: No VTE Prior VTE?: No VTE Risk Level:: Medical - moderate - high VTE Device Contraindication: N/A - Device Ordered VTE Drug Contraindication: N/A - Med Ordered
[2021-02-24] MEDS: Acetaminophen 325 MG TABLET 650 MG PO (18:16)
[2021-02-24] MEDS: Gabapentin 100 MG CAPSULE 200 MG PO (20:13)
[2021-02-24] MEDS: clonazePAM 1 MG TABLET PO (20:13)
[2021-02-24] MEDS: traZODone HCL 100 MG TABLET 200 MG PO (20:13)
[2021-02-24] MEDS: Melatonin 3 MG TABLET 6 MG PO (20:13)
[2021-02-24] MEDS: Escitalopram Oxalate 10 MG TABLET PO (20:14)
[2021-02-24] MEDS: Docusate Sodium 100 MG CAPSULE PO (20:14)
[2021-02-24] MEDS: Aspirin 81 MG TAB.CHEW PO (20:14)
[2021-02-24] MEDS: Lactated Ringers 1,000 ML 999 ML IV (20:14)
[2021-02-24 20:36] LABS: Basophils Percent Auto 0.3 % (0-2); Eosinophils Absolute Auto 0.4 X10*3/uL (0.0-0.4); Eosinophils Percent Auto 3.5 % (0-4); Hematocrit 31.2 % (37-47); Hemoglobin 10.4 g/dl (12.0-16.0); Imm Gran Abs Auto 0.08 X10*3/uL (0.00-0.03); Imm Gran Pct Auto 0.8 % (0.0-0.4); Lymphocytes Absolute Auto 2.7 X10*3/uL (1.2-4.9); MANUAL DIFF FLAG NO; Mean Corpuscular HGB Conc 33.3 g/dl (31.0-35.0); Mean Corpuscular Hemoglobin 30.4 pg (27.0-33.0); Mean Corpuscular Volume 91.2 fL (80-98); Mean Platelet Volume 9.8 fL (9.4-12.3); Monocytes Absolute Auto 1.1 X10*3/uL (0.1-1.2); Monocytes Percent Auto 10.9 % (2-11); Neutrophils Absolute Auto 5.7 X10*3/uL (2.0-8.3); Neutrophils Percent Auto 57.5 % (45-73); Platelet Count 174 X10*3/uL (160-400); Red Blood Count 3.42 X10*6/uL (4.20-5.50); White Blood Count 9.9 X10*3/uL (4.8-10.8)
[2021-02-24 20:53] LABS: Lactic Acid 0.7 mmol/L (0.5-2.0)
--- NOTE | 2021-02-24 23:59 | PM.EVENT ---
Event Note Date of Service: 02/24/21 Event Note: hypotension due to antihypertensivesnot due to sepsis received 1 l of lr held antihypertensives lactic normal
[2021-02-25] VITALS (7 sets, daily range): BP systolic 105–158; BP diastolic 52–66; PULSE 62–97; RESP 18–20; TEMP 36.1–37.3; O2SAT 94–99
[2021-02-25] MEDS: Enoxaparin Sodium 100 MG/ML SYRINGE SUBCUT ×3 (00:11→23:14)
[2021-02-25] MEDS: 0.9 % Sodium Chloride Flush 3 ML SYRINGE IVFLUSH ×3 (00:19→15:03)
--- NOTE | 2021-02-25 01:12 | PC.NURSE ---
Addendum entered by Eunice Mcclendon RN 02/25/21 01:24: Pt afebrile. Lactic acid drawn and found to be WNL, CBC drawn as well. Decrease in H&H noted from 11.4 and 35.7 to 10.4 and 31.2. Original Note: P: Pt's BP found to be 90/50 manually @ 8pm on 02/24. Pt reports feeling dizzy. I: MD notified, 1L bolus of LR ordered. Pt's orders for Valsartan 20mg at 2100 and Verapamil 240mg at 0900 D/C'd. E: Pt's BP increased to 104/51. Pt no longer reports dizziness. No more orders from MD at this time.
[2021-02-25] MEDS: Butalb/Acetamin/Caff 50/325/40 TABLET 1 TAB PO ×2 (03:35→10:50)
--- NOTE | 2021-02-25 07:36 | HO.VASCPN ---
Subjective Subjective Date of Service: 02/25/21 Patient reports: no new complaints and feels better Interval history: Patient seen and examined. No significant events. Left lower extremity decreased in swelling. She does note she has difficulty ambulating. She is being formally anticoagulated. Physical Exam Vital Signs: Vital Signs: Last Vital Signs Temp 97 F 02/25/21 04:00 Pulse 67 02/25/21 04:00 Resp 18 02/25/21 04:00 BP 110/53 L 02/25/21 04:00 Pulse Ox 94 02/25/21 04:00 Body Mass Index 40.8 Const: General: cooperative, healthy appearing and comfortable Orientation/consciousness: oriented to person, oriented to place and oriented to time Neck: Carotids: no bruits Chest: Chest palpation & inspection: normal inspection of the chest and normal palpation of entire chest wall Resp: Effort & Inspection: normal respiratory effort and able to speak in complete sentences Cardio: Rate: regular rate Heart sounds: S1 normal heart sound present and S2 normal heart sound present Peripheral pulses: Peripheral pulses 2+ throughout GI: Inspection: Yes normal to inspection Skin: Other: +2 edema, left greater than right General skin exam: dry skin Neuro: General: oriented to person, oriented to place and oriented to time Extrem: General: Yes edema Right lower extremity: full ROM, normal capillary refill and edema Left lower extremity: full ROM, normal capillary refill and edema Psych: Mental Status: mental status grossly normal Progress Note: A&P Assessment and plan (1) DVT (deep venous thrombosis): Status: Acute Assessment and Plan: In short patient has done extremely well status post thrombolysis and IVC filter placement with stent swelling appears to have decreased. She will require formal anticoagulation. Duration of anticoagulation per Hematology Oncology. She will follow up with us as an outpatient. Thank you for allowing us to assist in her care. Fall Risk Details Current Medications: Current Medications Generic Name Dose Route Start Last Admin Trade Name Freq PRN Reason Stop Dose Admin Acetaminophen 650 mg 02/20/21 18:40 02/24/21 18:16 Acetaminophen 325 Mg Tablet PO 650 mg Q6H PRN Administration Pain, Mild (Pain Scale 1-3) Acetaminophen/Butalbital/Caffeine 1 tab 02/21/21 14:02 02/25/21 03:35 Butalb/Acetamin/Caff 50/325/40 Tablet PO 1 tab Q4H PRN Administration Headache Aspirin 81 mg 02/20/21 21:00 02/24/21 20:14 Aspirin 81 Mg Tab.Chew PO 81 mg BEDTIME AYLEEN Administration Cholestyramine Resin 8 gm 02/20/21 19:13 Cholestyramine (With Sugar) 4 Gm Powd.Pack PO QID PRN Diarrhea Clonazepam 1 mg 02/20/21 19:13 02/24/21 20:13 Clonazepam 1 Mg Tablet PO 1 mg BEDTIME PRN Administration Insomnia Docusate Sodium 100 mg 02/20/21 18:40 02/24/21 20:14 Docusate Sodium 100 Mg Capsule PO 100 mg DAILY PRN Administration Constipation Enoxaparin Sodium 100 mg 02/22/21 12:00 02/25/21 00:11 Enoxaparin Sodium 100 Mg/Ml Syringe 1 mg/kg (100 mg) 100 mg SUBCUT Administration Q12H AYLE[facility] Escitalopram Oxalate 10 mg 02/20/21 21:00 02/24/21 20:14 Escitalopram Oxalate 10 Mg Tablet PO 10 mg BEDTIME AYLEEN Administration Gabapentin 200 mg 02/20/21 21:00 02/24/21 20:13 Gabapentin 100 Mg Capsule PO 200 mg BEDTIME AYLEEN Administration Magnesium Hydroxide 30 ml 02/20/21 18:40 02/23/21 17:00 Milk Of Magnesia 30 Ml Oral.Susp PO 30 ml DAILY PRN Administration Constipation Melatonin 6 mg 02/20/21 18:40 02/24/21 20:13 Melatonin 3 Mg Tablet PO 6 mg BEDTIME PRN Administration Insomnia Ondansetron HCl 4 mg 02/20/21 18:40 02/24/21 13:36 Ondansetron Hcl 4 Mg/2 Ml Vial IVPUSH 4 mg Q8H PRN Administration Nausea and Vomiting Oxycodone HCl 5 mg 02/23/21 16:43 02/24/21 07:58 Oxycodone Hcl Immed Release 5 Mg Tablet PO 5 mg Q6H PRN Administration Pain, Severe (Pain Scale 7-10) Oxycodone HCl 5 mg 02/24/21 08:17 Oxycodone Hcl Immed Release 5 Mg Tablet PO Q6H PRN Pain, Severe (Pain Scale 7-10) Pharmacy Consult 1 each 02/20/21 17:22 Consult Rx Perform Med Rec MISCELLANE ONCE PRN Consult order Sodium Chloride 3 ml 02/21/21 00:00 02/25/21 00:19 0.9 % Sodium Chloride Flush 3 Ml Syringe IVFLUSH 3 ml QSHIFT AYLEEN Administration Trazodone HCl 200 mg 02/20/21 21:00 02/24/21 20:13 Trazodone Hcl 100 Mg Tablet PO 200 mg BEDTIME AYLEEN Administration Valacyclovir HCl 1,000 mg 02/20/21 21:00 02/24/21 20:13 Valacycyclovir Hcl 1,000 Mg Tablet PO 1,000 mg BID AYLEEN Administration Time Spent With Patient Time: Total time spent is greater than 50% in coordination of care (as documented) at patient's floor/unit and/or counseling patient: Time with patient: 15 - 24 minutes Procedures Date of Service Date of Service: 02/25/21 Quality Stroke Does the patient have a stroke diagnosis?: No VTE Prior VTE?: No VTE Risk Level:: Medical - moderate - high VTE Device Contraindication: N/A - Device Ordered VTE Drug Contraindication: N/A - Med Ordered
[2021-02-25] MEDS: Acetaminophen 325 MG TABLET 650 MG PO ×2 (08:07→17:40)
[2021-02-25] MEDS: Milk of Magnesia 30 ML ORAL.SUSP PO (09:50)
[2021-02-25] MEDS: oxyCODONE HCl Immed Release 5 MG TABLET PO ×2 (09:51→20:19)
--- NOTE | 2021-02-25 14:54 | MHC.CM.PN ---
per rounds this am and physical therapy eval dc p0lan will be hoe with hvns mother will transport home also spoke with [facility] марина and imformed her of the same
[2021-02-25] MEDS: LORazepam 0.5 MG TABLET PO ×2 (15:03→23:13)
--- NOTE | 2021-02-25 15:16 | MHC.CM.PN ---
spoke with who says that pt will need 2 x daily lovenox mother unable to mange we discussed str she is requesting pt not go mariza marmolejo referals made
--- NOTE | 2021-02-25 15:25 | MHC.CM.PN ---
spoke with pt who is agreeable to str she seems to understand that her mom would be unable to do 2 x daily lovenox injections referrals made
[2021-02-25] MEDS: Gabapentin 100 MG CAPSULE 200 MG PO (20:14)
[2021-02-25] MEDS: Escitalopram Oxalate 10 MG TABLET PO (20:14)
[2021-02-25] MEDS: traZODone HCL 100 MG TABLET 200 MG PO (20:14)
[2021-02-25] MEDS: Aspirin 81 MG TAB.CHEW PO (20:14)
[2021-02-26] VITALS (9 sets, daily range): BP systolic 120–148; BP diastolic 62–68; PULSE 67–99; RESP 14–18; TEMP 36–36.5; O2SAT 94–98
[2021-02-26] MEDS: Butalb/Acetamin/Caff 50/325/40 TABLET 1 TAB PO ×4 (03:17→22:13)
[2021-02-26] MEDS: oxyCODONE HCl Immed Release 5 MG TABLET PO (06:20)
[2021-02-26] MEDS: LORazepam 0.5 MG TABLET PO ×2 (08:35→19:57)
[2021-02-26 08:50] LABS: Hematocrit 30.3 % (37-47); Hemoglobin 9.9 g/dl (12.0-16.0); Mean Corpuscular HGB Conc 32.7 g/dl (31.0-35.0); Mean Corpuscular Hemoglobin 29.7 pg (27.0-33.0); Mean Platelet Volume 9.9 fL (9.4-12.3); Platelet Count 201 X10*3/uL (160-400); Red Blood Count 3.33 X10*6/uL (4.20-5.50)
[2021-02-26] MEDS: Milk of Magnesia 30 ML ORAL.SUSP PO (11:54)
[2021-02-26] MEDS: Docusate Sodium 100 MG CAPSULE PO (11:55)
[2021-02-26] MEDS: Enoxaparin Sodium 100 MG/ML SYRINGE SUBCUT ×2 (11:59→23:45)
--- NOTE | 2021-02-26 14:23 | HO.PM.IMPN ---
Subjective Subjective Date of Service: 02/25/21 Interval History: Seen in f/u extensive left lower ext DVT, s/p tPA, stenting. Has persistent swelling, some pain Review of Systems Gen: no fever Resp: no sob, no cough CV: no chest, no MOLINA, no leg edema GI: No n/v, no abd pain Neuro: No confusion Ext: left leg swelling Physical Exam Vital Signs: Vital Signs: Last Vital Signs Temp 97.2 F 02/26/21 12:00 Pulse 84 02/26/21 12:00 Resp 17 02/26/21 12:00 BP 120/65 02/26/21 12:00 Pulse Ox 96 02/26/21 12:00 Body Mass Index 40.8 Const: Other: Constitutional Awake and Alert, No apparent distress Cardiovascular RRR, No M/R/G, S1 S2, No S3 S4, No pedal edema Respiratory Lungs clear, No respiratory distress Gastrointestinal Non tender, Non-distended Skin No rash Neurological Alert & oriented x3 Psychological Appropriate affect Extensive swelling of the left leg up to groin, some tendernes, no cyanosis Objective Data Current Medications Generic Name Dose Route Start Last Admin Trade Name Freq PRN Reason Stop Dose Admin Acetaminophen 650 mg 02/20/21 18:40 02/25/21 17:40 Acetaminophen 325 Mg Tablet PO 650 mg Q6H PRN Administration Pain, Mild (Pain Scale 1-3) Acetaminophen/Butalbital/Caffeine 1 tab 02/21/21 14:02 02/26/21 12:43 Butalb/Acetamin/Caff 50/325/40 Tablet PO 1 tab Q4H PRN Administration Headache Aspirin 81 mg 02/20/21 21:00 02/25/21 20:14 Aspirin 81 Mg Tab.Chew PO 81 mg BEDTIME AYLEEN Administration Cholestyramine Resin 8 gm 02/20/21 19:13 Cholestyramine (With Sugar) 4 Gm Powd.Pack PO QID PRN Diarrhea Docusate Sodium 100 mg 02/20/21 18:40 02/26/21 11:55 Docusate Sodium 100 Mg Capsule PO 100 mg DAILY PRN Administration Constipation Enoxaparin Sodium 100 mg 02/22/21 12:00 02/26/21 11:59 Enoxaparin Sodium 100 Mg/Ml Syringe 1 mg/kg (100 mg) 100 mg SUBCUT Administration Q12H [facility] Escitalopram Oxalate 10 mg 02/20/21 21:00 02/25/21 20:14 Escitalopram Oxalate 10 Mg Tablet PO 10 mg BEDTIME AYLEEN Administration Gabapentin 200 mg 02/20/21 21:00 02/25/21 20:14 Gabapentin 100 Mg Capsule PO 200 mg BEDTIME AYLEEN Administration Lorazepam 0.5 mg 02/25/21 14:21 02/26/21 08:35 Lorazepam 0.5 Mg Tablet PO 0.5 mg Q8H PRN Administration Anxiety Magnesium Hydroxide 30 ml 02/20/21 18:40 02/26/21 11:54 Milk Of Magnesia 30 Ml Oral.Susp PO 30 ml DAILY PRN Administration Constipation Melatonin 6 mg 02/20/21 18:40 02/24/21 20:13 Melatonin 3 Mg Tablet PO 6 mg BEDTIME PRN Administration Insomnia Ondansetron HCl 4 mg 02/20/21 18:40 02/24/21 13:36 Ondansetron Hcl 4 Mg/2 Ml Vial IVPUSH 4 mg Q8H PRN Administration Nausea and Vomiting Oxycodone HCl 5 mg 02/23/21 16:43 02/26/21 06:20 Oxycodone Hcl Immed Release 5 Mg Tablet PO 5 mg Q6H PRN Administration Pain, Severe (Pain Scale 7-10) Oxycodone HCl 5 mg 02/24/21 08:17 Oxycodone Hcl Immed Release 5 Mg Tablet PO Q6H PRN Pain, Severe (Pain Scale 7-10) Pharmacy Consult 1 each 02/20/21 17:22 Consult Rx Perform Med Rec MISCELLANE ONCE PRN Consult order Sodium Chloride 3 ml 02/21/21 00:00 02/26/21 08:38 0.9 % Sodium Chloride Flush 3 Ml Syringe IVFLUSH Not Given QSHIFT AYLEEN Trazodone HCl 200 mg 02/20/21 21:00 02/25/21 20:14 Trazodone Hcl 100 Mg Tablet PO 200 mg BEDTIME AYLEEN Administration Valacyclovir HCl 1,000 mg 02/20/21 21:00 02/26/21 08:34 Valacycyclovir Hcl 1,000 Mg Tablet PO 1,000 mg BID AYLEEN Administration Labs CBC & Chem 7: 02/26/21 08:37 02/23/21 05:39 Labs: Laboratory Results - last 24 hr 02/26/21 08:37 MCV 91.0 MCH 29.7 MCHC 32.7 RDW 13.0 Plt Count 201 MPV 9.9 Absolute Nucleated RBC 0.000 Nucleated RBC % (auto) 0.0 Assessment and Plan (1) Hypertension: Status: Acute (2) Pulmonary emboli: Status: Acute (3) DVT (deep venous thrombosis): Status: Acute Assessment and Plan: 61/F with unprovoked extensive left lower extremity DVT extending all the way up s/p tPA and Plan: 1. Left leg DVT 2. robert Pulmonary emboli Very high clot burden -s/p tPA 02/21 -s/p iliac stent and IVC on 02/22 - changed from heparin to Levenox -Hematology consult seen--up to date on colonoscopy and liane, no thrombophilia work up indicate -Hematology recommends Lovenox for now 2 HTN--continue Irberstartan (Valsartant here) 3. Anxiety depression--Clonapin, Celexa DVT prophylaxis--Lovenox Full code Quality Stroke Does the patient have a stroke diagnosis?: No VTE Prior VTE?: No VTE Risk Level:: Medical - moderate - high VTE Device Contraindication: N/A - Device Ordered VTE Drug Contraindication: N/A - Med Ordered
--- NOTE | 2021-02-26 14:28 | MHC.CM.PN ---
nurse associate director career services note electronic medical record reviewed along with case discussed with staff nurse and physicql michael[rist and patient , she was accepted at [facility] in [place] first choice [facility], she will be discharged today around 4;30 via action wheelchair [employer] discharge plan to str at [facility] and [facility] lovenox bid s/p aneursym rupture 190 and then stroke, has anxiety and depression sec to this also light sensitive and sound sensative wears eye block and ear plugs she will be transported via [employer]
[2021-02-26] MEDS: Acetaminophen 325 MG TABLET 650 MG PO (14:51)
--- NOTE | 2021-02-26 15:02 | MHC.CM.PN ---
nurse direct care counselor note electronic medical record reviewed along with case discussed with staff nurse and hospitliast , patient will be discharged today [facility] admisistrTION PATIENT FIRST CHOICE 2,TRANSPORTARION VIA ACTION WHEECHAIR VAN AT 4;30 TODAY 3, NEW HEALTH CARE [PROXY COMPLETED NAMING HER MOTHER HER AGENT . ORIGINAL AND COPIES GIVEN TO PATIENT , ONE PLACED IN CHART AND ONE UPLOADED TO [employer] AND SENT TO [facility] IMM UPDATED [place] [facility] UPDATED AND WILL FOLLOW AT [facility]
[2021-02-26 16:36] LABS: COVID-19 Test Negative (Negative); IDNOW Serial# 08D9AD1C
--- NOTE | 2021-02-26 16:48 | MHC.CM.PN ---
NURSE SCREEN MAKING SUPERVISOR NTOE ELECTRONIC MEDICAL RECORD REVIEWED ALONG WITH CASE DIWCUSSES WITH STAFF NURSE AND HOSPITALIST VIA TIGER MESSAGE , RECIVED TEXT FROM [facility] NOW DO NOT HAVE A BED FOR PATIENT UNTIL TOMORROW AM INFORMED NURSE AND HOSPITLIST AND P[ATIENT AND T/C TO HER MOTHER HUNTER TO LET HER KNOW
[2021-02-26] MEDS: Cholestyramine (With Sugar) 4 GM POWD.PACK 8 GM PO (17:26)
--- NOTE | 2021-02-26 17:51 | HO.PM.IMPN ---
Subjective Subjective Date of Service: 02/26/21 Interval History: Seen in f/u extensive left lower ext DVT, s/p tPA, stenting. Has persistent swelling, pain is better, constipation Review of Systems Gen: no fever Resp: no sob, no cough CV: no chest, no MOLINA, no leg edema GI: No n/v, no abd pain Neuro: No confusion Ext: left leg swelling Physical Exam Vital Signs: Vital Signs: Last Vital Signs Temp 96.9 F 02/26/21 15:44 Pulse 68 02/26/21 15:44 Resp 14 02/26/21 15:44 BP 148/65 H 02/26/21 15:44 Pulse Ox 94 02/26/21 15:44 Body Mass Index 40.8 Const: Other: Constitutional Awake and Alert, No apparent distress Cardiovascular RRR, No M/R/G, S1 S2, No S3 S4, No pedal edema Respiratory Lungs clear, No respiratory distress Gastrointestinal Non tender, Non-distended Skin No rash Neurological Alert & oriented x3 Psychological Appropriate affect Extensive swelling of the left leg up to groin, some tendernes, no cyanosis Objective Data Current Medications Generic Name Dose Route Start Last Admin Trade Name Freq PRN Reason Stop Dose Admin Acetaminophen 650 mg 02/20/21 18:40 02/26/21 14:51 Acetaminophen 325 Mg Tablet PO 650 mg Q6H PRN Administration Pain, Mild (Pain Scale 1-3) Acetaminophen/Butalbital/Caffeine 1 tab 02/21/21 14:02 02/26/21 12:43 Butalb/Acetamin/Caff 50/325/40 Tablet PO 1 tab Q4H PRN Administration Headache Aspirin 81 mg 02/20/21 21:00 02/25/21 20:14 Aspirin 81 Mg Tab.Chew PO 81 mg BEDTIME AYLEEN Administration Cholestyramine Resin 8 gm 02/20/21 19:13 02/26/21 17:26 Cholestyramine (With Sugar) 4 Gm Powd.Pack PO 8 gm QID PRN Administration Diarrhea Docusate Sodium 100 mg 02/20/21 18:40 02/26/21 11:55 Docusate Sodium 100 Mg Capsule PO 100 mg DAILY PRN Administration Constipation Enoxaparin Sodium 100 mg 02/22/21 12:00 02/26/21 11:59 Enoxaparin Sodium 100 Mg/Ml Syringe 1 mg/kg (100 mg) 100 mg SUBCUT Administration Q12H AYLEEN Escitalopram Oxalate 10 mg 02/20/21 21:00 02/25/21 20:14 Escitalopram Oxalate 10 Mg Tablet PO 10 mg BEDTIME AYLEEN Administration Gabapentin 200 mg 02/20/21 21:00 02/25/21 20:14 Gabapentin 100 Mg Capsule PO 200 mg BEDTIME AYLEEN Administration Lorazepam 0.5 mg 02/25/21 14:21 02/26/21 08:35 Lorazepam 0.5 Mg Tablet PO 0.5 mg Q8H PRN Administration Anxiety Magnesium Hydroxide 30 ml 02/20/21 18:40 02/26/21 11:54 Milk Of Magnesia 30 Ml Oral.Susp PO 30 ml DAILY PRN Administration Constipation Melatonin 6 mg 02/20/21 18:40 02/24/21 20:13 Melatonin 3 Mg Tablet PO 6 mg BEDTIME PRN Administration Insomnia Ondansetron HCl 4 mg 02/20/21 18:40 02/24/21 13:36 Ondansetron Hcl 4 Mg/2 Ml Vial IVPUSH 4 mg Q8H PRN Administration Nausea and Vomiting Oxycodone HCl 5 mg 02/23/21 16:43 02/26/21 06:20 Oxycodone Hcl Immed Release 5 Mg Tablet PO 5 mg Q6H PRN Administration Pain, Severe (Pain Scale 7-10) Oxycodone HCl 5 mg 02/24/21 08:17 Oxycodone Hcl Immed Release 5 Mg Tablet PO Q6H PRN Pain, Severe (Pain Scale 7-10) Pharmacy Consult 1 each 02/20/21 17:22 Consult Rx Perform Med Rec MISCELLANE ONCE PRN Consult order Polyethylene Glycol 17 gm 02/26/21 14:45 Polyethylene Glycol 3350 17 Gm Powd.Pack PO DAILY PRN Constipation Sodium Chloride 3 ml 02/21/21 00:00 02/26/21 16:56 0.9 % Sodium Chloride Flush 3 Ml Syringe IVFLUSH Not Given QSHIFT AYLEEN Trazodone HCl 200 mg 02/20/21 21:00 02/25/21 20:14 Trazodone Hcl 100 Mg Tablet PO 200 mg BEDTIME AYLEEN Administration Valacyclovir HCl 1,000 mg 02/20/21 21:00 02/26/21 08:34 Valacycyclovir Hcl 1,000 Mg Tablet PO 1,000 mg BID AYLEEN Administration Labs CBC & Chem 7: 02/26/21 08:37 02/23/21 05:39 Labs: Laboratory Results - last 24 hr 02/26/21 02/26/21 08:37 16:09 MCV 91.0 MCH 29.7 MCHC 32.7 RDW 13.0 Plt Count 201 MPV 9.9 Absolute Nucleated RBC 0.000 Nucleated RBC % (auto) 0.0 COVID-19 (VEDA) Negative COVID-19 Clin Com See Note Assessment and Plan (1) Hypertension: Status: Acute (2) Pulmonary emboli: Status: Acute (3) DVT (deep venous thrombosis): Status: Acute Assessment and Plan: 61/F with unprovoked extensive left lower extremity DVT extending all the way up s/p tPA and Plan: 1. Left leg DVT 2. robert Pulmonary emboli Very high clot burden -s/p tPA 02/21 -s/p iliac stent and IVC on 02/22 - changed from heparin to Levenox -Hematology consult seen--up to date on colonoscopy and liane, no thrombophilia work up indicate -Hematology recommends Lovenox for now, not able to do this at home so will go to rehab 2 HTN--continue Irberstartan (Valsartant here) 3. Anxiety depression--Clonapin, Celexa constipation : bowel regiment Full code Quality Stroke Does the patient have a stroke diagnosis?: No VTE Prior VTE?: No VTE Risk Level:: Medical - moderate - high VTE Device Contraindication: N/A - Device Ordered VTE Drug Contraindication: N/A - Med Ordered
[2021-02-26] MEDS: Gabapentin 100 MG CAPSULE 200 MG PO (19:57)
[2021-02-26] MEDS: Escitalopram Oxalate 10 MG TABLET PO (19:57)
[2021-02-26] MEDS: Aspirin 81 MG TAB.CHEW PO (19:57)
[2021-02-26] MEDS: traZODone HCL 100 MG TABLET 200 MG PO (19:57)
[2021-02-26] MEDS: Melatonin 3 MG TABLET 6 MG PO (20:48)
[2021-02-26] MEDS: 0.9 % Sodium Chloride Flush 3 ML SYRINGE IVFLUSH (22:15)
[2021-02-27] MEDS: oxyCODONE HCl Immed Release 5 MG TABLET PO ×2 (01:20→08:21)
[2021-02-27 03:50] VITALS: BP 162/67; PULSE 65; RESP 16; TEMP 36.2; O2SAT 93
[2021-02-27] MEDS: Acetaminophen 325 MG TABLET 650 MG PO (04:09)
[2021-02-27 06:48] LABS: Hematocrit 29.2 % (37-47); Hemoglobin 9.6 g/dl (12.0-16.0); Mean Corpuscular HGB Conc 32.9 g/dl (31.0-35.0); Mean Corpuscular Hemoglobin 29.6 pg (27.0-33.0); Mean Corpuscular Volume 90.1 fL (80-98); Mean Platelet Volume 10.4 fL (9.4-12.3); Platelet Count 213 X10*3/uL (160-400); Red Blood Count 3.24 X10*6/uL (4.20-5.50); White Blood Count 7.6 X10*3/uL (4.8-10.8)
[2021-02-27] MEDS: Butalb/Acetamin/Caff 50/325/40 TABLET 1 TAB PO (07:46)
[2021-02-27 07:54] VITALS: BP 145/72; PULSE 59; RESP 20; TEMP 36.2; O2SAT 96
[2021-02-27] MEDS: LORazepam 0.5 MG TABLET PO (08:21)
[2021-02-27] MEDS: Cholestyramine (With Sugar) 4 GM POWD.PACK 8 GM PO (10:51)
[2021-02-27] MEDS: Enoxaparin Sodium 100 MG/ML SYRINGE SUBCUT (10:51)
[2021-02-27 11:35] VITALS: BP 144/76; PULSE 59; RESP 16; TEMP 36.1; O2SAT 94
--- NOTE | 2021-02-27 12:35 | MHC.CM.PN ---
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 PATIENT IS AWARE HER MOTHER [facility] [phone] MEDICARE IMM UPDATED 02/26/21
--- NOTE | 2021-02-27 14:43 | P.DS_ITS ---
DS: Providers Provider Date of Service: 02/27/21 Date of admission: 02/20/21 18:39 Primary care physician: Marc Dailey MD Consults: 02/20/21 18:42 Consult to Hematology / Oncology Routine Consulting Provider: Reanna Cordova Reason for consultation: extensive DVT Has provider been notified: No Consult to Vascular Surgery Routine Consulting Provider: Igor Ortega Reason for consultation: Extensive DVT Has provider been notified: No DS: Diagnosis Discharge Diagnosis (1) Hypertension: (2) Pulmonary emboli: Status: Resolved (3) DVT (deep venous thrombosis): Status: Resolved DS: Summary Hospital Course Hospital Course: Chief Complaint: Left leg swelling 61-year-old female with a history of migraine headaches, history of brain aneurysm 32 years ago, chronic sciatica, drop foot, arthritis, presenting to ED with very swollen left that developped? over the last 24 hours.? She is usually not very mobile, and did take a bus to the [employer] to [place] yesterday. She has not been? having sob, she takes no hormones, she does not have history of cancer. US sound shows?extensive deep vein thrombosis of left lower extremity. Hospital course: 1. Left leg DVT and Bilateral pulmonary embolism with high clot burden but hemodynamically stable and was in the begning started on IV Heparin, the next day she had tPA and was monitored in the ICU, a day after that she had Iliac stent and IVC filter inserted by Vascular Surgery (Dr. Ortega) and subsequently she was started on Lovenox. She was evaluated by Hematology, she is up todate on colonscopy and mamogram. Dr. Cordova (Site Superintendent ) Lovenox given high clot burden but maybe swith to oral anticoagulant in the future. Hematology advises no thrombophylia work up at this time. Will follow up with Dr. Cordova 2 HTN--continue Irbersartan 3. Anxiety depression--Clonapin, Celexa Time Spent with Patient Time attestation: Total time spent providing and/or coordinating discharge services: Discharge coordination time: Greater than 30 minutes Quality: Stroke Does the patient have a stroke diagnosis?: No Physical Exam Vital Signs: Vital Signs: Selected Entries 02/27/21 07:54 Temperature 97.1 F Pulse Rate 59 Respiratory Rate 20 Blood Pressure 145/72 H Pulse Oximetry 96 Oxygen Delivery Me thod Room Air Constitutional Awake and Alert, No apparent distress Cardiovascular RRR, No M/R/G, S1 S2, No S3 S4, No pedal edema Respiratory Lungs clear, No respiratory distress Gastrointestinal Non tender, Non-distended Skin No rash Neurological Alert & oriented x3 Psychological Appropriate affect Extensive swelling of the left leg up to groin, some tendernes, no cyanosis DS: Data Data Completed and Pending Labs on day of discharge: Laboratory Results - last 24 hr 02/26/21 08:37 WBC 8.0 RBC 3.33 L Hgb 9.9 L Hct 30.3 L MCV 91.0 MCH 29.7 MCHC 32.7 RDW 13.0 Plt Count 201 MPV 9.9 Absolute Nucleated RBC 0.000 Nucleated RBC % (auto) 0.0 Discharge Plan Discharge Anticipated Discharge Date/Time: 02/27/21 10:22 Patient Disposition: Home, Self-Care Discharge Diagnosis: Pulmonary embolism Referrals: [facility] [Other] - [facility] [Outside] - 1 Week Reanna Cordova MD [Physician] - 1 Week Marc Dailey MD [Primary Care Provider] - 1 Week Discharge Medications: New oxycodone 5 mg Tablet 5 mg PO Q6H PRN (Reason: Pain, Severe (Pain Scale 7-10)) Qty: 15 RF: 0 enoxaparin 100 mg/mL Syringe 100 mg subcut Q12H Qty: 10 RF: 0 Continued valacyclovir 1 gram tablet 1 tab PO BID RF: 0 clonazepam 1 mg tablet 1 mg PO BEDTIME PRN (Reason: Insomnia) RF: 0 trazodone 100 mg tablet 2 tab PO BEDTIME RF: 0 irbesartan 75 mg tablet 0.5 tab PO BEDTIME RF: 0 verapamil 240 mg tablet extended release 1 tab PO DAILY RF: 0 gabapentin 100 mg capsule 200 mg PO BEDTIME RF: 0 estradiol 0.01 % (0.1 mg/gram) cream 1 appl vaginal BEDTIME RF: 0 escitalopram oxalate 10 mg tablet 1 tab PO BEDTIME RF: 0 aspirin 81 mg Tablet,Chewable 81 mg PO BEDTIME RF: 0 cholestyramine (with sugar) 4 gram Powder In Packet 8 g PO QID PRN (Reason: Diarrhea) RF: 0 melatonin 5 mg Tablet 5 mg PO BEDTIME RF: 0 No Action warfarin [Jantoven] 5 mg Tablet 5 mg PO DAILY Qty: 30 RF: 2 Discharge Orders: Discharge Order (Routine); Ordered 02/26/21 Ordered By: Hardeep Piper Diet: advance to usual diet Activity on Discharge: As tolerated Stand Alone Forms: Patient Portal Discharge page Care Plan Goals: Resolution of DVT and prevent more clot Health Concerns: DVT and PE Plan of Treatment: Take Lovenox as recommended and follow up with your Doctor jessica week Assessment: As above Discharge Date/Time: 02/27/21 12:31
== END 2021-02-27 12:31 | disposition home or self-care (01) | DRG 252 ==
LOC: HO.ED 17:22 → HO.EDOVER 19:15 → HO.ICU 02-21 10:19 → HO.IMC 02-22 17:17 → HO.S3 02-26 07:25
PROVIDERS: Internal Medicine; Internal Medicine Cardiovascular Disease; Physician Assistant; Student in an Organized Health Care Education/Training Program; Surgery Vascular Surgery; Admitting Provider Internal Medicine; Emergency Provider Emergency Medicine Emergency Medical Services; PCP Internal Medicine Cardiovascular Disease; Visit Provider Internal Medicine
PROC: 3E03317 Introduction of Other Thrombolytic into Peripheral Vein, Percutaneous Approach (ICD-10-PCS; principal; 2021-02-21 08:00)
PROC: 067D3DZ Dilation of Left Common Iliac Vein with Intraluminal Device, Percutaneous Approach (ICD-10-PCS; principal; 2021-02-22 07:30)
DX: I82.4Z2 Acute embolism and thrombosis of unspecified deep veins of left distal lower extremity (principal); I26.99 Other pulmonary embolism without acute cor pulmonale; G43.909 Migraine, unspecified, not intractable, without status migrainosus; I95.9 Hypotension, unspecified; I10 Essential (primary) hypertension; F41.9 Anxiety disorder, unspecified; F32.9 Major depressive disorder, single episode, unspecified; Z20.822 Contact with and (suspected) exposure to COVID-19; Z88.5 Allergy status to narcotic agent; Z79.82 Long term (current) use of aspirin; Z79.899 Other long term (current) drug therapy
CPT/HCPCS: 36415; 37185; 37191; 37212; 37214; 71275; 76937; 80048; 80076; 81001; 81003; 83605; 83735; 84100; 85025; 85027; 85384; 85610; 85730; 87635; 93971; 96365; 96375; 96376; 97116; 97161; 99152; 99153; 99285; C1769; C1876; C1880; C1887; C1894; J1650; J1885; J2060; J2270; J2405; J2997; Q9967

== ENCOUNTER → 2021-03-26 11:00 | Outpatient (BNVA) | payer MEDICARE, MEDICAID, SELFPAY | PROVIDERS: PCP Internal Medicine Cardiovascular Disease; Referring Provider Internal Medicine Cardiovascular Disease; Visit Provider Surgery Vascular Surgery | DX: I82.409 Acute embolism and thrombosis of unspecified deep veins of unspecified lower extremity (principal); I10 Essential (primary) hypertension; I60.7 Nontraumatic subarachnoid hemorrhage from unspecified intracranial artery | CPT/HCPCS: 99212 ==

== ENCOUNTER 2021-05-20 10:54 | Outpatient (REF) | payer MEDICARE, MEDICAID, SELFPAY ==
--- NOTE | ~2021-05-20 | US_ITS ---
EXAMINATION: US VENOUS ULTRASOUND WITH DOPPLER LOWER EXTREMITY, BILATERAL CLINICAL INFORMATION: History of left leg DVT. COMPARISON: Previous left lower extremity venous ultrasound 02/20/2021 TECHNIQUE: Ultrasound of the deep veins is performed from the hip to the calf with compression sonography and color and pulse Doppler assessment. Spectral analysis with color-flow imaging is performed. FINDINGS: RIGHT: There is normal venous compression and respiratory variation and augmented flow. The visualized common femoral vein, superficial femoral vein, profunda femoral vein, popliteal vein, and the trifurcation region shows no evidence of deep venous thrombosis. There is no significant popliteal fossa cyst. LEFT: There is hypoechoic material seen against the wall of the left common femoral and profunda femoral vein suggestive of old DVT. Clot burden is decreased compared to January. The visualized superficial femoral vein, popliteal vein, and the trifurcation region shows no evidence of deep venous thrombosis. There is reversed flow in the left greater saphenous vein. There is no significant popliteal fossa cyst. US/US venous duplex LE BI IMPRESSION: Interval decrease in clot burden in the left lower extremity compared to January 20182020 exam. There is hypoechoic material against the wall of the left common femoral and profunda femoral veins suggestive of old DVT. No DVT demonstrated in the right lower extremity.
== END 2021-05-20 10:55 | disposition home or self-care (01) ==
LOC: HO.US 10:54
PROVIDERS: PCP Family Medicine; Visit Provider Surgery Vascular Surgery
DX: I82.412 Acute embolism and thrombosis of left femoral vein (principal)
CPT/HCPCS: 93970

== ENCOUNTER 2021-06-12 11:00 | Outpatient (RCR) | payer MEDICARE, MEDICAID, SELFPAY | END 2021-06-12 14:36 | disposition home or self-care (01) | LOC: HO.PT 11:00 | PROVIDERS: PCP Family Medicine; Visit Provider Obstetrics & Gynecology | DX: R10.2 Pelvic and perineal pain (principal) | CPT/HCPCS: 97110; 97112; 97140; 97162 ==

== ENCOUNTER → 2021-07-09 14:56 | Outpatient (BNVA) | payer MEDICARE, MEDICAID, SELFPAY | PROVIDERS: PCP Family Medicine; Visit Provider Surgery Vascular Surgery | DX: Z09 Encounter for follow-up examination after completed treatment for conditions other than malignant neoplasm (principal); I82.409 Acute embolism and thrombosis of unspecified deep veins of unspecified lower extremity; Z79.01 Long term (current) use of anticoagulants | CPT/HCPCS: 99212 ==

== ENCOUNTER 2022-01-06 17:34 | Emergency (ER) | payer MEDICARE, MEDICAID, SELFPAY ==
--- NOTE | ~2022-01-06 | US_ITS ---
EXAMINATION: US VENOUS ULTRASOUND WITH DOPPLER LOWER EXTREMITY, LEFT CLINICAL INFORMATION: History of DVT with left lower extremity swelling COMPARISON: None TECHNIQUE: Ultrasound of the deep veins is performed from the hip to the calf with compression sonography and color and pulse Doppler assessment. Spectral analysis with color-flow imaging is performed. FINDINGS: There a small area of chronic appearing mural thrombus present in the common femoral vein, unchanged from prior. Otherwise, there is normal venous compression and respiratory variation and augmented flow. The visualized superficial femoral vein, profunda femoral vein, popliteal vein, and the trifurcation region shows no evidence of deep venous thrombosis. There is no significant popliteal fossa cyst. Again seen is junctional reflux in the left great saphenous vein. If the patient's symptoms persist, followup ultrasound in 5 days 7 days might be of value to exclude proximal propagation from a non-visualized calf vein. 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 Superficial venous incompetence is again demonstrated with reflux in the great saphenous vein.
[2022-01-06 17:39] VITALS: BP 132/56; PULSE 66; RESP 18; TEMP 36.7; O2SAT 98; BMI 34.0
--- NOTE | 2022-01-06 19:30 | ED.GENADULT ---
HPI - General Adult General Chief complaint: General Medical Stated complaint: possible blood clot Time Seen by Provider: 01/06/22 17:58 Source: patient Mode of arrival: ambulatory Limitations: no limitations History of Present Illness HPI narrative: Patient with history of DVT in left leg status post endovascular intervention with thrombolysis and subsequent left iliac vein stent placement and IVC filter placement on 02/13 on Eliquis noticed increased swelling and pain in the left leg for last 2 days. No fever no shortness of breath no discoloration of the leg patient fairly compliant with medications Related Data Home Medications Medication Instructions Recorded Confirmed aspirin 81 mg chewable tablet 81 mg PO BEDTIME 02/20/21 12/17/21 cholestyramine (with sugar) 4 gram 8 g PO QID PRN Diarrhea 02/20/21 12/17/21 powder for susp in a packet clonazepam 1 mg tablet 1 mg PO BEDTIME PRN Insomnia 02/20/21 12/17/21 escitalopram oxalate 10 mg tablet 1 tab PO BEDTIME 02/20/21 12/17/21 estradiol 1 appl vaginal BEDTIME 02/20/21 12/17/21 gabapentin 100 mg capsule 200 mg PO BEDTIME 02/20/21 12/17/21 irbesartan 75 mg tablet 0.5 tab PO BEDTIME 02/20/21 12/17/21 melatonin 5 mg tablet 5 mg PO BEDTIME 02/20/21 12/17/21 trazodone 100 mg tablet 2 tab PO BEDTIME 02/20/21 12/17/21 valacyclovir 1 gram tablet 1 tab PO BID 02/20/21 12/17/21 verapamil 240 mg tablet,extended 1 tab PO DAILY 02/20/21 12/17/21 release apixaban 5 mg tablet (Eliquis) 5 mg PO BID 12/17/21 12/17/21 oxybutynin chloride 12/17/21 Previous Rx's Medication Instructions Recorded warfarin 5 mg tablet (Jantoven) 5 mg PO DAILY #30 tabs 03/12/21 Allergies Allergy/AdvReac Type Severity Reaction Status Date / Time bee pollen [BEE STINGS] Allergy Unknown UNKNOWN Verified 01/06/22 17:39 divalproex sodium Allergy Unknown UNKNOWN Verified 01/06/22 17:39 [From DEPAKOTE] erythromycin base Allergy Unknown UNKNOWN Verified 01/06/22 17:39 [ERYTHROMYCIN BASE] oxycodone [From PERCOCET] AdvReac Mild NAUSEA & Verified 01/06/22 17:39 VOMITING Review of Systems Review of Systems: Yes all other systems are reviewed and are negative [facility] Past Medical History Medical History Anxiety Hypertension Migraine Ruptured (congenital) cerebral aneurysm Sciatica Stroke Subarachnoid hemorrhage Surgical History History of cholecystectomy History of partial hysterectomy History of ventriculoperitoneal shunting Hx of brain surgery Family History Family History Maternal Uncle Brain cancer Father Prostate cancer Brother CHF (congestive heart failure) Maternal Grandmother HTN (hypertension) Paternal Grandmother Diabetes Social History Social History Alcohol intake: former Patient Tobacco Use Status: Former Tobacco user Quit Date: 1989 Tobacco use type: Cigarette Cigarette Packs Per Day: 1 Advance Directives: Yes Advance Directives on File: Yes Advance Directives Date on File: 02/21/21 service: No Current occupational status: disabled Physical Exam ED Vital Signs: Vital Signs - 24 hr 01/06/22 17:39 Temperature 98.0 F Pulse Rate 66 Respiratory Rate 18 Blood Pressure 132/56 L Pulse Oximetry 98 Oxygen Delivery Method Room Air BMI result Body Mass Index 34.0 Appearance: Alert. Oriented X3. No acute distress. Eyes: PERRLA, No Nystagmus ENT: Pharynx normal. Oral Mucosa moist Neck: Normal inspection. Neck supple. CVS: Normal heart rate and rhythm. Pulses normal. Respiratory: No respiratory distress. Equal air entry bilateral, no wheezing/rales/rhonchi Abdomen: Soft and nontender. Bowel sounds are present, no mass palpable, no CVA tenderness Skin: Skin warm and dry. Normal skin color. Normal skin turgor. Extremities: 1+ lower extremity edema. L > R No calf tenderness Bassam sign negative Neuro: Oriented X 3. No motor deficit. No sensory deficit.No cerebellar signs , cranial nerves II-XII intact Medical Decision Making MDM Narrative Medical decision making narrative: Patient with chronic leg edema Doppler negative for DVT venous insufficiency likely the cause of leg swelling will discharge patient home Lab Data Lab results reviewed: Yes I reviewed the patient's lab results. Result diagrams: 01/06/22 20:49 01/06/22 20:49 Labs: Lab Results 01/06/22 01/06/22 01/06/22 Range/Units 20:49 20:49 20:49 WBC 8.1 (4.8-10.8) X10*3/uL RBC 4.52 (4.20-5.50) X10*6/uL Hgb 13.4 (12.0-16.0) g/dl Hct 41.6 (37.0-47.0) % MCV 92.0 (80.0-98.0) fL MCH 29.6 (27.0-33.0) pg MCHC 32.2 (31.0-35.0) g/dl RDW 13.0 (11.0-16.0) % Plt Count 190 (160-400) X10*3/uL MPV 10.3 (9.4-12.3) fL Immature Gran % (Auto) 0.2 (0.0-0.4) % Neut % (Auto) 52.1 (45-73) % Lymph % (Auto) 35.4 (20-40) % Candler % (Auto) 8.9 (2-11) % Eos % (Auto) 2.9 (0-4) % Baso % (Auto) 0.5 (0-2) % Lymph # (Auto) 2.9 (1.2-4.9) X10*3/uL Candler # (Auto) 0.7 (0.1-1.2) X10*3/uL Eos # (Auto) 0.2 (0.0-0.4) X10*3/uL Baso # (Auto) 0.0 (0.0-0.2) X10*3/uL Abs Immat Gran (auto) 0.02 (0.00-0.03) X10*3/uL Absolute Neuts (auto) 4.2 (2.0-8.3) x10*3/uL Absolute Nucleated RBC 0.000 (0.0-0.012) X10*3/uL Nucleated RBC % (auto) 0.0 (0.0-0.2) /100WBC Sodium 139 (135-145) mmol/L Potassium 4.3 (3.3-5.1) mmol/L Chloride 106 (96-108) mmol/L Carbon Dioxide 25 (22-29) mmol/L Anion Gap 12 (12-20) BUN 15 (9-16) mg/dL Creatinine 0.86 (0.5-1.4) mg/dL Estim Creat Clear Calc 72.8 Estimated GFR > 60 Random Glucose 86 (60-115) mg/dL Calcium 9.5 (8.4-10.2) mg/dL Magnesium 2.1 (1.6-2.6) mg/dL Total Bilirubin 0.5 (0.0-1.0) mg/dL AST 18 (5-31) U/L ALT 26 (0-31) U/L Alkaline Phosphatase 124 H (39-117) U/L B-Natriuretic Peptide 82 (<100) pg/mL Total Protein 6.7 (6.5-8.0) g/dL Albumin 4.3 (3.5-5.0) g/dL Discharge Plan Discharge Clinical Impression: Leg swelling, DVT, lower extremity Patient Disposition: Home, Self-Care Instructions: Deep Vein Thrombosis (ED), Leg Edema (ED) Additional Instructions: Continue your medications Keep your leg elevated Prescriptions: No Action valacyclovir 1 gram tablet 1 tab PO BID clonazepam 1 mg tablet 1 mg PO BEDTIME PRN (Reason: Insomnia) trazodone 100 mg tablet 2 tab PO BEDTIME irbesartan 75 mg tablet 0.5 tab PO BEDTIME verapamil 240 mg tablet extended release 1 tab PO DAILY gabapentin 100 mg capsule 200 mg PO BEDTIME estradiol 0.01 % (0.1 mg/gram) cream 1 appl vaginal BEDTIME escitalopram oxalate 10 mg tablet 1 tab PO BEDTIME aspirin 81 mg Tablet,Chewable 81 mg PO BEDTIME cholestyramine (with sugar) 4 gram Powder In Packet 8 g PO QID PRN (Reason: Diarrhea) melatonin 5 mg Tablet 5 mg PO BEDTIME warfarin [Jantoven] 5 mg Tablet 5 mg PO DAILY Qty: 30 2RF Eliquis 5 mg Tablet 5 mg PO BID oxybutynin chloride Interventions: ED Discharge Assessment Last Done: 01/06/22 21:29 Discharge Date/Time: 01/06/22 21:31
[2022-01-06 20:55] LABS: MANUAL DIFF FLAG NO
[2022-01-06 20:56] LABS: Basophils Percent Auto 0.5 % (0-2); Eosinophils Absolute Auto 0.2 X10*3/uL (0.0-0.4); Eosinophils Percent Auto 2.9 % (0-4); Hematocrit 41.6 % (37.0-47.0); Hemoglobin 13.4 g/dl (12.0-16.0); Imm Gran Abs Auto 0.02 X10*3/uL (0.00-0.03); Imm Gran Pct Auto 0.2 % (0.0-0.4); Lymphocytes Absolute Auto 2.9 X10*3/uL (1.2-4.9); Lymphocytes Percent Auto 35.4 % (20-40); Mean Corpuscular HGB Conc 32.2 g/dl (31.0-35.0); Mean Corpuscular Hemoglobin 29.6 pg (27.0-33.0); Mean Platelet Volume 10.3 fL (9.4-12.3); Monocytes Absolute Auto 0.7 X10*3/uL (0.1-1.2); Monocytes Percent Auto 8.9 % (2-11); Neutrophils Absolute Auto 4.2 x10*3/uL (2.0-8.3); Neutrophils Percent Auto 52.1 % (45-73); Platelet Count 190 X10*3/uL (160-400); Red Blood Count 4.52 X10*6/uL (4.20-5.50); White Blood Count 8.1 X10*3/uL (4.8-10.8)
[2022-01-06 21:10] LABS: Alanine Aminotransferase 26 U/L (0-31); Albumin Level 4.3 g/dL (3.5-5.0); Alkaline Phosphatase 124 U/L (39-117); Anion Gap 12 (12-20); Aspartate Amino Transferase 18 U/L (5-31); Bilirubin Total 0.5 mg/dL (0.0-1.0); Blood Urea Nitrogen 15 mg/dL (9-16); Calcium 9.5 mg/dL (8.4-10.2); Carbon Dioxide 25 mmol/L (22-29); Chloride 106 mmol/L (96-108); Creatinine Clr Calc Pharmacy 72.8; Estimated Glomerular Filt Rate > 60; Glucose Random 86 mg/dL (60-115); Magnesium 2.1 mg/dL (1.6-2.6); Potassium 4.3 mmol/L (3.3-5.1); Sodium 139 mmol/L (135-145); Total Protein 6.7 g/dL (6.5-8.0)
[2022-01-06 21:16] LABS: B Type Natriuretic Peptide 82 pg/mL (<100)
== END 2022-01-06 21:31 | disposition home or self-care (01) ==
PROVIDERS: Emergency Provider Internal Medicine; PCP Family Medicine
DX: I82.512 Chronic embolism and thrombosis of left femoral vein (principal); M79.89 Other specified soft tissue disorders; I10 Essential (primary) hypertension; Z86.73 Personal history of transient ischemic attack (TIA), and cerebral infarction without residual deficits; Z79.01 Long term (current) use of anticoagulants; Z95.820 Peripheral vascular angioplasty status with implants and grafts
CPT/HCPCS: 36415; 80053; 83735; 83880; 85025; 93971; 99283; 99284

== ENCOUNTER 2022-01-08 14:24 | Emergency (ER) | payer MEDICARE, MEDICAID, SELFPAY ==
--- NOTE | ~2022-01-08 | CT_ITS ---
EXAMINATION: CT HEAD WITHOUT CONTRAST CLINICAL INFORMATION: Headache. Photophobia, left leg paresthesias and left arm weakness COMPARISON: Previous head CT most recent December 2017 TECHNIQUE: Contiguous axial imaging was performed from the skull base to vertex without intravenous administration of contrast. This CT examination was performed using dose optimization techniques as appropriate, variously including the following: *Automated exposure control *Adjustment of mA and/or kV according to patient size (this includes techniques or standardized protocols for targeted exams where dose is matched to indication/reason for exam; i.e. extremities or head) *Use of iterative reconstruction technique DLP: 616 mGy-cm FINDINGS: There is no evidence of an extra-axial collection. There is no evidence of intra-axial or extra-axial hemorrhage. There is a left CLERK CARRIER shunt. Catheter enters the ventricles from the left frontal lobe and the tip of the catheter in the region of the caudate lobe on the right. This appears unchanged in position. The ventricles appear unchanged in size. There is an aneurysm clip seen in the supraclinoid region on the right. There are areas of old infarct or encephalomalacia seen in the bilateral paramedian or parafalcine frontal lobes, left greater than right, and the base of the right frontal lobe. This appears unchanged. No mass, mass effect or acute infarct is seen. No skull fracture is seen. There are postsurgical changes to the right frontal bone. Paranasal sinuses, mastoid air cells and middle ears are clear. CT/CT head/brain wo con IMPRESSION: No acute intracranial findings. Stable head CT from December 2017.
[2022-01-08 14:26] VITALS: BP 150/100; PULSE 64; O2SAT 95
[2022-01-08 14:27] VITALS: BP 151/58; PULSE 57; RESP 18; TEMP 36.6; O2SAT 95; BMI 31.6
--- NOTE | 2022-01-08 14:42 | ECG_ITS ---
Test Reason : left arm numbness Blood Pressure : / mmHG Vent. Rate : 058 BPM Atrial Rate : 058 BPM P-R Int : 202 ms QRS Dur : 072 ms QT Int : 450 ms P-R-T Axes : 027 013 044 degrees QTc Int : 441 ms Sinus bradycardia Otherwise normal ECG When compared with ECG of 11-SEP-2017 01:31, No significant change was found Referred By: Dulce Maria Morales Electronically Signed By:Hayder Philip
--- NOTE | 2022-01-08 14:45 | ED.NEUROSD ---
HPI - Neuro Symptoms/Deficit General Chief Complaint: General Medical Stated Complaint: L SIDED NUMBNESS Time Seen by Provider: 01/08/22 14:31 Source: patient and old records reviewed Mode of arrival: EMS Limitations: no limitations History of Present Illness HPI Narrative: 61 yo female with hx of anxiety, migraines, prior SAH from aneurysm, DVT on eliquis, reports around 1130 today she might have had a panic attack but notes her L arm went numb and her left leg. She now has a residual patch of tingling in her left upper thigh. She also had palpitations and vomiting. She now has a migraine. She took her eliquis this AM. Onset (ago): hour(s) (3) Location: left arm and left leg History of same: No Severity: moderate Quality: numb and tingling Relieving factors: time Exacerbating factors: none Context: sudden onset On Anticoagulants: Yes (eliquis took dose this AM) Associated symptoms: headaches and nausea/vomiting Treatments Prior to Arrival: none Related Data Home Medications Medication Instructions Recorded Confirmed aspirin 81 mg chewable tablet 81 mg PO BEDTIME 02/20/21 12/17/21 cholestyramine (with sugar) 4 gram 8 g PO QID PRN Diarrhea 02/20/21 12/17/21 powder for susp in a packet clonazepam 1 mg tablet 1 mg PO BEDTIME PRN Insomnia 02/20/21 12/17/21 escitalopram oxalate 10 mg tablet 1 tab PO BEDTIME 02/20/21 12/17/21 estradiol 1 appl vaginal BEDTIME 02/20/21 12/17/21 gabapentin 100 mg capsule 200 mg PO BEDTIME 02/20/21 12/17/21 irbesartan 75 mg tablet 0.5 tab PO BEDTIME 02/20/21 12/17/21 melatonin 5 mg tablet 5 mg PO BEDTIME 02/20/21 12/17/21 trazodone 100 mg tablet 2 tab PO BEDTIME 02/20/21 12/17/21 valacyclovir 1 gram tablet 1 tab PO BID 02/20/21 12/17/21 verapamil 240 mg tablet,extended 1 tab PO DAILY 02/20/21 12/17/21 release apixaban 5 mg tablet (Eliquis) 5 mg PO BID 12/17/21 12/17/21 oxybutynin chloride 12/17/21 Previous Rx's Medication Instructions Recorded warfarin 5 mg tablet (Jantoven) 5 mg PO DAILY #30 tabs 03/12/21 Allergies Allergy/AdvReac Type Severity Reaction Status Date / Time bee pollen [BEE STINGS] Allergy Unknown UNKNOWN Verified 01/06/22 17:39 divalproex sodium Allergy Unknown UNKNOWN Verified 01/06/22 17:39 [From DEPAKOTE] erythromycin base Allergy Unknown UNKNOWN Verified 01/06/22 17:39 [ERYTHROMYCIN BASE] oxycodone [From PERCOCET] AdvReac Mild NAUSEA & Verified 01/06/22 17:39 VOMITING Review of Systems Review of Systems: Constitutional : No Fever, No Chills, No Fatigue ENT/Mouth : No sore throat, No Rhinorrhea Eyes: No Eye Pain, No Swelling, No Redness Cardiovascular : No Chest Pain, No SOB, No Dyspnea on Exertion, pos palpitations Respiratory : No Cough, No Sputum Gastrointestinal : pos Nausea, pos Vomiting, No Diarrhea, No abdominal Pain Genitourinary : No Dysuria, No Urinary Frequency, No Hematuria, Musculoskeletal : No joint pain, No Myalgias, No Joint Swelling Skin : No Skin Lesions, No rash Neuro : No Weakness, No Numbness, No Dizziness, positive Headache, pos parasthesias Psych : No Anxiety/Panic, No Depression Heme/Lymph: No Bruising, No Bleeding,No Lymphadenopathy Endocrine : No Polyuria, No Polydipsia All other systems reviewed and are negative [facility] Past Medical History Attestation statement: The following information was validated with the patient. Medical History Anxiety DVT, lower extremity Hypertension Migraine Ruptured (congenital) cerebral aneurysm Sciatica Stroke Subarachnoid hemorrhage Surgical History History of cholecystectomy History of partial hysterectomy History of ventriculoperitoneal shunting Hx of brain surgery Family History Family History Maternal Uncle Brain cancer Father Prostate cancer Brother CHF (congestive heart failure) Maternal Grandmother HTN (hypertension) Paternal Grandmother Diabetes Social History Social History Alcohol intake: former Patient Tobacco Use Status: Former Tobacco user Quit Date: 1989 Tobacco use type: Cigarette Cigarette Packs Per Day: 1 Advance Directives: No Advance Directives Date on File: 02/21/21 service: No Current occupational status: disabled Physical Exam Vital Signs: Vital Signs: Last Vital Signs Temp 98.6 F 01/08/22 15:14 Pulse 71 01/08/22 15:14 Resp 16 01/08/22 15:14 BP 121/46 L 01/08/22 15:14 Pulse Ox 96 01/08/22 15:14 O2 Del Method 01/08/22 15:14 BMI result Body Mass Index 31.6 Appearance: Alert. Oriented X3. No acute distress. Anxious Eyes: Pupils equal, round and reactive to light. ENT: Pharynx normal. Neck: Normal inspection. Neck supple. CVS: Normal heart rate and rhythm. Pulses normal. Respiratory: No respiratory distress. Breath sounds normal. Abdomen: Soft and nontender. Skin: Skin warm and dry. Normal skin color. Normal skin turgor. Extremities: No lower extremity edema. No calf ttp Neuro: Oriented X 3. No motor deficit. No sensory deficit. reports some patchy parasthesia on L upper outer thigh Course Course Course Narrative: patient already feeling better anticipate DC home after medications patient already on aspirin and eliquis signed out to Dr. Vargas pending reassessment - getting ativan now MDM - Neuro Symptoms/Deficit MDM Narrative Medical decision making narrative: 61 yo female with hx of anxiety, migraines, prior SAH from aneurysm, DVT on eliquis reports at 1130 developed L sided parasthesias and possible anxiety attack. Now has a migraine. She is on eliquis and took a dose this morning. Patient with just one patchy area of left upper thigh remains she is otherwise neurologically intact - at this time labs, CT head for ICH, EKG, IV zofran and ativan for anxiety. Possible complex migraine, anxiety attack, TIA possible though already on eliquis. Dispo per results and findings Lab Data Result diagrams: 01/08/22 15:07 01/08/22 15:07 Labs: Lab Results 01/08/22 01/08/22 01/08/22 Range/Units 14:42 15:07 15:07 WBC 5.3 (4.8-10.8) X10*3/uL RBC 4.05 L (4.20-5.50) X10*6/uL Hgb 12.1 (12.0-16.0) g/dl Hct 37.6 (37.0-47.0) % MCV 92.8 (80.0-98.0) fL MCH 29.9 (27.0-33.0) pg MCHC 32.2 (31.0-35.0) g/dl RDW 12.8 (11.0-16.0) % Plt Count 174 (160-400) X10*3/uL MPV 10.2 (9.4-12.3) fL Immature Gran % (Auto) 0.4 (0.0-0.4) % Neut % (Auto) 51.6 (45-73) % Lymph % (Auto) 35.5 (20-40) % [facility] % (Auto) 9.1 (2-11) % Eos % (Auto) 2.8 (0-4) % Baso % (Auto) 0.6 (0-2) % Lymph # (Auto) 1.9 (1.2-4.9) X10*3/uL [facility] # (Auto) 0.5 (0.1-1.2) X10*3/uL Eos # (Auto) 0.2 (0.0-0.4) X10*3/uL Baso # (Auto) 0.0 (0.0-0.2) X10*3/uL Abs Immat Gran (auto) 0.02 (0.00-0.03) X10*3/uL Absolute Neuts (auto) 2.7 (2.0-8.3) x10*3/uL Absolute Nucleated RBC 0.000 (0.0-0.012) X10*3/uL Nucleated RBC % (auto) 0.0 (0.0-0.2) /100WBC PT (9.9-13.0) SEC INR (0.9-1.1) Troponin I High Sens < 3.5 (<3.5-17.0) ng/L COVID-19 (VEDA) Negative (Negative) COVID-19 Clin Com See Note 01/08/22 Range/Units 15:08 WBC (4.8-10.8) X10*3/uL RBC (4.20-5.50) X10*6/uL Hgb (12.0-16.0) g/dl Hct (37.0-47.0) % MCV (80.0-98.0) fL MCH (27.0-33.0) pg MCHC (31.0-35.0) g/dl RDW (11.0-16.0) % Plt Count (160-400) X10*3/uL MPV (9.4-12.3) fL Immature Gran % (Auto) (0.0-0.4) % Neut % (Auto) (45-73) % Lymph % (Auto) (20-40) % [facility] % (Auto) (2-11) % Eos % (Auto) (0-4) % Baso % (Auto) (0-2) % Lymph # (Auto) (1.2-4.9) X10*3/uL [facility] # (Auto) (0.1-1.2) X10*3/uL Eos # (Auto) (0.0-0.4) X10*3/uL Baso # (Auto) (0.0-0.2) X10*3/uL Abs Immat Gran (auto) (0.00-0.03) X10*3/uL Absolute Neuts (auto) (2.0-8.3) x10*3/uL Absolute Nucleated RBC (0.0-0.012) X10*3/uL Nucleated RBC % (auto) (0.0-0.2) /100WBC PT 14.7 H (9.9-13.0) SEC INR 1.3 H (0.9-1.1) Troponin I High Sens (<3.5-17.0) ng/L COVID-19 (VEDA) (Negative) COVID-19 Clin Com ECG Data Attestation: I personally reviewed and interpreted this ECG as follows: ECG interpretation date: 01/08/22 ECG interpretation time: 14:55 Interpretation: Rate: 58 Rhythm: sinus bradycardia Walling: normal Normal P waves. 1st degree AVB Normal QRS complex. ST T wave : normal no GUZMAN qTC: normal prior studies: no acute ischemia The study has been interpreted contemporaneously by me. . Discharge Plan Discharge Clinical Impression: Left leg paresthesias Headache, migraine Qualifiers: Migraine type: without aura Status migrainosus presence: without status migrainosus Intractability: not intractable Qualified Code(s): G43.009 - Migraine without aura, not intractable, without status migrainosus Patient Disposition: Still a Patient Instructions: Migraine Headache (ED), Paresthesia (ED) Additional Instructions: return to ED for any worsening symptoms or concerns continue all medications follow up with your doctor Prescriptions: No Action valacyclovir 1 gram tablet 1 tab PO BID clonazepam 1 mg tablet 1 mg PO BEDTIME PRN (Reason: Insomnia) trazodone 100 mg tablet 2 tab PO BEDTIME irbesartan 75 mg tablet 0.5 tab PO BEDTIME verapamil 240 mg tablet extended release 1 tab PO DAILY gabapentin 100 mg capsule 200 mg PO BEDTIME estradiol 0.01 % (0.1 mg/gram) cream 1 appl vaginal BEDTIME escitalopram oxalate 10 mg tablet 1 tab PO BEDTIME aspirin 81 mg Tablet,Chewable 81 mg PO BEDTIME cholestyramine (with sugar) 4 gram Powder In Packet 8 g PO QID PRN (Reason: Diarrhea) melatonin 5 mg Tablet 5 mg PO BEDTIME warfarin [Jantoven] 5 mg Tablet 5 mg PO DAILY Qty: 30 2RF Eliquis 5 mg Tablet 5 mg PO BID oxybutynin chloride Referrals: Physician,Unknown J [Primary Care Provider] - 3 days
[2022-01-08 15:12] LABS: MANUAL DIFF FLAG NO
[2022-01-08 15:14] VITALS: BP 121/46; PULSE 71; RESP 16; TEMP 37; O2SAT 96
[2022-01-08 15:14] LABS: Basophils Percent Auto 0.6 % (0-2); Eosinophils Absolute Auto 0.2 X10*3/uL (0.0-0.4); Eosinophils Percent Auto 2.8 % (0-4); Hematocrit 37.6 % (37.0-47.0); Hemoglobin 12.1 g/dl (12.0-16.0); Imm Gran Abs Auto 0.02 X10*3/uL (0.00-0.03); Imm Gran Pct Auto 0.4 % (0.0-0.4); Lymphocytes Absolute Auto 1.9 X10*3/uL (1.2-4.9); Lymphocytes Percent Auto 35.5 % (20-40); Mean Corpuscular HGB Conc 32.2 g/dl (31.0-35.0); Mean Corpuscular Hemoglobin 29.9 pg (27.0-33.0); Mean Corpuscular Volume 92.8 fL (80.0-98.0); Mean Platelet Volume 10.2 fL (9.4-12.3); Monocytes Absolute Auto 0.5 X10*3/uL (0.1-1.2); Monocytes Percent Auto 9.1 % (2-11); Neutrophils Absolute Auto 2.7 x10*3/uL (2.0-8.3); Neutrophils Percent Auto 51.6 % (45-73); Platelet Count 174 X10*3/uL (160-400); Red Blood Count 4.05 X10*6/uL (4.20-5.50); Red Cell Distribution Width 12.8 % (11.0-16.0); White Blood Count 5.3 X10*3/uL (4.8-10.8)
[2022-01-08 15:22] LABS: INTERNATIONAL NORM RATIO 1.3 (0.9-1.1); Prothrombin Time 14.7 SEC (9.9-13.0)
[2022-01-08 15:32] LABS: COVID-19 Test Negative (Negative)
[2022-01-08 15:42] LABS: Troponin-I High Sensitivity < 3.5 ng/L (<3.5-17.0)
[2022-01-08] MEDS: ondansetron HCL 4 MG/2 ML VIAL IVPUSH (15:47)
[2022-01-08] MEDS: LORazepam 2 MG/ML VIAL 1 MG IVPUSH (15:48)
[2022-01-08 16:07] LABS: Alanine Aminotransferase 20 U/L (0-31); Albumin Level 3.9 g/dL (3.5-5.0); Alkaline Phosphatase 111 U/L (39-117); Anion Gap 11 (12-20); Aspartate Amino Transferase 18 U/L (5-31); Bilirubin Direct < 0.2 mg/dL (0.0-0.5); Bilirubin Total 0.3 mg/dL (0.0-1.0); Blood Urea Nitrogen 13 mg/dL (9-16); Calcium 9.1 mg/dL (8.4-10.2); Carbon Dioxide 27 mmol/L (22-29); Chloride 107 mmol/L (96-108); Creatinine Clr Calc Pharmacy 61.7; Estimated Glomerular Filt Rate > 60; Glucose Random 102 mg/dL (60-115); Magnesium 1.9 mg/dL (1.6-2.6); Potassium 4.7 mmol/L (3.3-5.1); Sodium 140 mmol/L (135-145); Total Protein 6.2 g/dL (6.5-8.0)
[2022-01-08 17:07] VITALS: BP 135/58; PULSE 58; RESP 16; TEMP 36.9; O2SAT 93
== END 2022-01-08 17:18 | disposition home or self-care (01) ==
PROVIDERS: Emergency Provider Emergency Medicine
DX: G43.009 Migraine without aura, not intractable, without status migrainosus (principal); R20.2 Paresthesia of skin; I10 Essential (primary) hypertension; Z86.718 Personal history of other venous thrombosis and embolism; Z86.73 Personal history of transient ischemic attack (TIA), and cerebral infarction without residual deficits; Z79.01 Long term (current) use of anticoagulants; Z20.822 Contact with and (suspected) exposure to COVID-19
CPT/HCPCS: 36415; 70450; 80048; 80076; 83735; 84484; 85025; 85610; 87635; 93005; 96374; 96375; 99283; 99284; J2060; J2405

== ENCOUNTER 2022-05-13 08:45 | Outpatient (REF) | payer MEDICARE, MEDICAID, SELFPAY ==
[2022-05-13 12:51] LABS: INTERNATIONAL NORM RATIO 1.4 (0.9-1.1); Prothrombin Time 15.8 SEC (10.0-13.1)
[2022-05-13 13:10] LABS: Alanine Aminotransferase 12 U/L (0-31); Albumin Level 4.2 g/dL (3.5-5.0); Alkaline Phosphatase 115 U/L (39-117); Aspartate Amino Transferase 17 U/L (5-31); Bilirubin Direct < 0.2 mg/dL (0.0-0.5); Bilirubin Total 0.5 mg/dL (0.0-1.0); C Reactive Protein 0.95 mg/dL (< or = 0.50); Total Protein 6.7 g/dL (6.5-8.0)
[2022-05-13 13:30] LABS: TSH reflex Free T4 4.84 uIU/mL (0.32-4.0); Vitamin D 25-OH Total 14.2 ng/mL (>30)
[2022-05-13 13:47] LABS: Folate 7.6 ng/mL (> or = 4.0); Vitamin B12 372 pg/mL (200-900)
[2022-05-13 14:43] LABS: Free T4 (Free Thyroxine) 1.07 ng/dL (0.71-1.85)
[2022-05-14 04:26] LABS: Hepatitis A Antibody IgG Nonreactive (Nonreactive)
[2022-05-14 04:52] LABS: HBS Num1 1.64 mIU/mL (0-7.99); HBc Num1 0.08 S/CO (0.00-0.79); HBsAGNum1 0.18 S/CO (0.00-0.99); Hepatitis B Core Antibody Nonreactive (Nonreactive); Hepatitis B Surface Antigen Negative (Negative); ~HepC Num1 0.07 S/CO (0.00-0.79); ~Hepatitis B Surface Antibody NONREACTIVE (Nonreactive); ~Hepatitis C Antibody Nonreactive (Nonreactive)
[2022-05-15 15:35] LABS: Transglutaminase IgA <1.0 U/mL
[2022-05-15 17:47] LABS: Immunoglobulin A 171 mg/dL (70-320)
== END 2022-05-13 08:46 | disposition home or self-care (01) ==
LOC: HO.LAB 08:45
PROVIDERS: PCP Nurse Practitioner Primary Care; Visit Provider Internal Medicine
DX: K52.9 Noninfective gastroenteritis and colitis, unspecified (principal); R10.9 Unspecified abdominal pain; F10.91 Alcohol use, unspecified, in remission
CPT/HCPCS: 36415; 80076; 82306; 82607; 82746; 82784; 84439; 84443; 85610; 86140; 86364; 86704; 86706; 86708; 86803; 87340; 99202

== ENCOUNTER 2022-05-15 13:00 | Outpatient (REF) | payer MEDICARE, MEDICAID, SELFPAY ==
[2022-05-20 22:32] LABS: Calprotectin, Fecal 97 mcg/g
== END 2022-05-15 13:01 | disposition home or self-care (01) ==
LOC: HO.LNP 13:00
PROVIDERS: Visit Provider Internal Medicine
DX: K52.9 Noninfective gastroenteritis and colitis, unspecified (principal)
CPT/HCPCS: 83993

== ENCOUNTER → 2022-06-10 10:25 | Outpatient (BNVA) | payer MEDICARE, MEDICAID, SELFPAY | PROVIDERS: PCP Nurse Practitioner Primary Care; Visit Provider Internal Medicine | DX: K52.9 Noninfective gastroenteritis and colitis, unspecified (principal); M94.0 Chondrocostal junction syndrome [Tietze]; F10.91 Alcohol use, unspecified, in remission | CPT/HCPCS: 99212 ==

== ENCOUNTER 2022-07-02 09:50 | Outpatient (REF) | payer MEDICARE, MEDICAID, SELFPAY ==
--- NOTE | ~2022-07-02 | US_ITS ---
EXAMINATION: US ABDOMEN COMPLETE CLINICAL INFORMATION: Chronic diarrhea. COMPARISON: None. TECHNIQUE: Real-time imaging of the abdominal viscera. FINDINGS: PANCREAS: Normal. ABDOMINAL AORTA: The proximal, mid, and distal segments are normal in caliber. INFERIOR VENA CAVA: Visualized portions are normal. LIVER: The liver is heterogeneous in echotexture with normal size and contour. Slight increased echogenicity is noted. No focal hepatic lesion. There is no intrahepatic biliary duct dilatation seen. GALLBLADDER: Surgically absent. COMMON BILE DUCT: Normal in caliber measuring 1.1 cm in diameter. RIGHT KIDNEY: Normal. No hydronephrosis. No renal calculi or focal parenchymal lesions. The kidney measures 8.6 cm in maximum dimension. LEFT KIDNEY: Normal. No hydronephrosis. No renal calculi or focal parenchymal lesions. The kidney measures 10.7 cm in maximum dimension. SPLEEN: Normal. The spleen measures 9.5 cm in maximum dimension. FREE FLUID: None. US/US abdomen complete IMPRESSION: 1. Heterogeneous echogenic liver without focal lesion. 2. The gallbladder has been surgically removed. 3. Rest of the abdominal ultrasound is unremarkable.
== END 2022-07-02 09:51 | disposition home or self-care (01) ==
LOC: HO.US 09:50
PROVIDERS: Visit Provider Internal Medicine
DX: K52.9 Noninfective gastroenteritis and colitis, unspecified (principal)
CPT/HCPCS: 76700

== ENCOUNTER 2022-09-25 11:18 | Day surgery (SDC) | payer MEDICARE, MEDICAID, SELFPAY ==
--- NOTE | 2022-09-24 12:20 | P.CONAN_ITS ---
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 IVC filter in situ PMFSH Active Problems Active Problems: All Active Problems (Updated 09/24/22 @ 11:03 by Monet Glez, RN) Chronic diarrhea (Acute) Right sided abdominal pain (Acute) Colon cancer screening (Acute) Alcohol use disorder in remission (Acute) Costochondritis (Acute) Chronic liver disease (Acute) Past Medical History Medical History (Updated 09/24/22 @ 11:03 by Monet Glez, RN) Anxiety DVT, lower extremity Hypertension Migraine Ruptured (congenital) cerebral aneurysm Sciatica Stroke Subarachnoid hemorrhage Family History Family History Maternal Uncle Brain cancer Father Prostate cancer Brother CHF (congestive heart failure) Maternal Grandmother HTN (hypertension) Paternal Grandmother Diabetes Surgical History Surgical History (Updated 09/24/22 @ 11:02 by Monet Glez RN) History of cholecystectomy History of partial hysterectomy History of ventriculoperitoneal shunting Hx of brain surgery S/P IVC filter Social History Social History Household Members: Caregiver Housing: House Alcohol intake: former Patient Tobacco Use Status: Former Tobacco user Quit Date: 1989 Tobacco use type: Cigarette Cigarette Packs Per Day: 1 Use of substances other than those prescribed or required for medical reasons: No Are you DNR?: No Advance Directives: No Advance Directives Information Provided: Yes Advance Directives Date on File: 02/21/21 service: No Current occupational status: disabled Meds Allergies Allergy/AdvReac Type Severity Reaction Status Date / Time bee pollen [BEE STINGS] Allergy Unknown UNKNOWN Verified 06/10/22 10:37 divalproex sodium Allergy Unknown UNKNOWN Verified 06/10/22 10:37 [From DEPAKOTE] erythromycin base Allergy Unknown UNKNOWN Verified 06/10/22 10:37 [ERYTHROMYCIN BASE] oxycodone [From PERCOCET] AdvReac Mild NAUSEA & Verified 06/10/22 10:37 VOMITING Home Medications Medication Instructions Recorded Confirmed Last Taken Type aspirin 81 mg chewable tablet 81 mg PO BEDTIME 02/20/21 09/10/22 02/19/21 History clonazepam 1 mg tablet 1 mg PO BEDTIME PRN Insomnia 02/20/21 09/10/22 02/19/21 History estradiol 0.01% (0.1 mg/gram) 1 appl vaginal BEDTIME 02/20/21 09/10/22 02/19/21 History vaginal cream irbesartan 75 mg tablet 0.5 tab PO BEDTIME 02/20/21 09/10/22 02/19/21 History melatonin 5 mg tablet 5 mg PO BEDTIME 02/20/21 09/10/22 02/19/21 History trazodone 100 mg tablet 2 tab PO BEDTIME 02/20/21 09/10/22 02/19/21 History valacyclovir 1 gram tablet 1 tab PO BID 02/20/21 09/10/22 02/20/21 History verapamil 240 mg tablet,extended 1 tab PO DAILY 02/20/21 09/10/22 02/19/21 History release oxybutynin chloride 5 mg 1 tab PO DAILY 04/15/22 09/10/22 Unknown History tablet,extended release 24 hr escitalopram oxalate 20 mg tablet 20 mg PO DAILY 06/10/22 09/10/22 Unknown History gabapentin 300 mg capsule 300 mg PO DAILY 06/10/22 09/10/22 Unknown History hydroxyzine HCl 25 mg tablet 25 mg PO ONCE PRN Sleep 06/10/22 09/10/22 Unknown History neomycin 3.5 mg/g-polymyxin B 3.5 appl ophthalmic (eye) BID 06/10/22 09/10/22 Unknown History 10,000 unit/g-dexameth 0.1 % eye oint Exam Exam Date and Time: September 24, 2022 1220 Pertinent Lab Results Pertinent Lab Results: Laboratory Tests 09/10/22 09/10/22 16:38 16:38 WBC 8.2 Hgb 13.4 Hct 41.2 Plt Count 215 Sodium 143 Potassium 4.0 Chloride 107 Carbon Dioxide 26 BUN 13 Creatinine 1.02 Narrative Narrative: EKG 12/2021 Vent. Rate : 058 BPM ? ? Atrial Rate : 058 BPM ?? P-R Int : 202 ms? QRS Dur : 072 ms ? ? QT Int : 450 ms ? ? ? P-R-T Axes : 027 013 044 degrees ?? QTc Int : 441 ms ? Sinus bradycardia Otherwise normal ECG When compared with ECG of 11-SEP-2017 01:31, No significant change was found Assessment and Plan Assessment Anesthesia Assessment: Chart Reviewed Documented by User: Myrna Whitehead MD 09/25/22 13:12 PMFSH Past Medical History Medical History (Updated 09/24/22 @ 11:03 by Monet Glez, RN) Anxiety DVT, lower extremity Hypertension Migraine Ruptured (congenital) cerebral aneurysm Sciatica Stroke Subarachnoid hemorrhage Family History Family History Maternal Uncle Brain cancer Father Prostate cancer Brother CHF (congestive heart failure) Maternal Grandmother HTN (hypertension) Paternal Grandmother Diabetes Family history of problems with anesthesia: No Surgical History Surgical History (Updated 09/24/22 @ 11:02 by Monet Glez, RN) History of cholecystectomy History of partial hysterectomy History of ventriculoperitoneal shunting Hx of brain surgery S/P IVC filter History of Problems with Anesthesia: No Social History Social History Household Members: Caregiver Housing: House Alcohol intake: former Patient Tobacco Use Status: Former Tobacco user Quit Date: 1989 Tobacco use type: Cigarette Cigarette Packs Per Day: 1 Use of substances other than those prescribed or required for medical reasons: No Are you DNR?: No Advance Directives: No Advance Directives Information Provided: Yes Advance Directives Date on File: 02/21/21 service: No Current occupational status: disabled Meds Allergies Allergy/AdvReac Type Severity Reaction Status Date / Time bee pollen [BEE STINGS] Allergy Unknown UNKNOWN Verified 06/10/22 10:37 divalproex sodium Allergy Unknown UNKNOWN Verified 06/10/22 10:37 [From DEPAKOTE] erythromycin base Allergy Unknown UNKNOWN Verified 06/10/22 10:37 [ERYTHROMYCIN BASE] oxycodone [From PERCOCET] AdvReac Mild NAUSEA & Verified 06/10/22 10:37 VOMITING Home Medications Medication Instructions Recorded Confirmed Last Taken Type aspirin 81 mg chewable tablet 81 mg PO BEDTIME 02/20/21 09/10/22 02/19/21 History clonazepam 1 mg tablet 1 mg PO BEDTIME PRN Insomnia 02/20/21 09/10/22 02/19/21 History estradiol 0.01% (0.1 mg/gram) 1 appl vaginal BEDTIME 02/20/21 09/10/22 02/19/21 History vaginal cream irbesartan 75 mg tablet 0.5 tab PO BEDTIME 02/20/21 09/10/22 02/19/21 History melatonin 5 mg tablet 5 mg PO BEDTIME 02/20/21 09/10/22 02/19/21 History trazodone 100 mg tablet 2 tab PO BEDTIME 02/20/21 09/10/22 02/19/21 History valacyclovir 1 gram tablet 1 tab PO BID 02/20/21 09/10/22 02/20/21 History verapamil 240 mg tablet,extended 1 tab PO DAILY 02/20/21 09/10/22 02/19/21 History release oxybutynin chloride 5 mg 1 tab PO DAILY 04/15/22 09/10/22 Unknown History tablet,extended release 24 hr escitalopram oxalate 20 mg tablet 20 mg PO DAILY 06/10/22 09/10/22 Unknown History gabapentin 300 mg capsule 300 mg PO DAILY 06/10/22 09/10/22 Unknown History hydroxyzine HCl 25 mg tablet 25 mg PO ONCE PRN Sleep 06/10/22 09/10/22 Unknown History neomycin 3.5 mg/g-polymyxin B 3.5 appl ophthalmic (eye) BID 06/10/22 09/10/22 Unknown History 10,000 unit/g-dexameth 0.1 % eye oint Exam Airway Mallampati Class: II TM Dist: >3cm Neck ROM: Full Partial: Upper Heart: rrr Lungs: cta Assessment and Plan Assessment Anesthesia Assessment: Anesthesia Plan Discussed Final Anesthetic Review Family History of Problems with Anesthesia: No History of Problems with Anesthesia: No NPO: Yes ASA Class: III Final Preanesthetic Review: No Changes in Pt Med Stat, Meds/Allgs Chart Reviewed, Consent Obtained/Reviewed and Anes Risks/Benef Reviewed Patient Risk: Intermediate Procedure Risk: Intermediate Anesthetic Plan Anesthetic Plan: MAC: and Agree w/ Assess. and Plan Disposition: Standard PACU
[2022-09-25 11:34] VITALS: BMI 35.6
[2022-09-25 12:29] VITALS: BP 152/52; PULSE 54; RESP 18; TEMP 36.6; O2SAT 95
--- NOTE | 2022-09-25 12:52 | MHC.SHP ---
Pre-Procedural Eval Section A Date of Service: 09/25/22 Section B Chief Complaint: Noninfective gastroenteritis and colitis, unspecif Relevant Family History (Specify if Yes): No Relevant Social History: Alcohol Use Present Medications: see Short Stay Collaborative assessment Medical History: Significant History (Anxiety DVT, lower extremity Hypertension Migraine Ruptured (congenital) cerebral aneurysm Sciatica Stroke Subarachnoid hemorrhage) History of Previous Operations: Relevant previous surgery/procedure and date(s) (History of cholecystectomy History of partial hysterectomy History of ventriculoperitoneal shunting Hx of brain surgery) Allergies: Allergies Allergy/AdvReac Type Severity Reaction Status Date / Time bee pollen [BEE STINGS] Allergy Unknown UNKNOWN Verified 06/10/22 10:37 divalproex sodium Allergy Unknown UNKNOWN Verified 06/10/22 10:37 [From DEPAKOTE] erythromycin base Allergy Unknown UNKNOWN Verified 06/10/22 10:37 [ERYTHROMYCIN BASE] oxycodone [From PERCOCET] AdvReac Mild NAUSEA & Verified 06/10/22 10:37 VOMITING Review of Systems Sugical H&P ROS: Negative: Constitution, Cardiovascular, Respiratory, Neurological, Psychiatric, Hem-Onc, Allergic/Immunologic, Gastrointestinal, Genitourinary, Musculoskeletal, Integumentary, Endocrine and Eyes/Ears/Nose/Throat Exam Surgical H&P Exam: Normal: HEENT, Normal: Heart, Normal: Lungs, Normal: Extremities, Normal: Abdomen, Normal: Skin and Normal: Neurological Plan Diagnosis/Plan: Unchanged I have reviewed the history and physical and performed a pertinent physical examination on my patient. No changes have occurred unless specified. Time Spent With Patient Time: Total time managing care of this patient today ____ minutes.
--- NOTE | 2022-09-25 14:06 | P.OP_ITS ---
Operative Note Operative Note Date of Service: 09/25/22 Narrative: Operative Information Procedure Description: EGD, Colonoscopy Indication: diarrhea Anesthesia: MAC FLEXIBLE TRANSORAL UPPER GASTROINTESTINAL ENDOSCOPY AND COLONOSCOPY PROCEDURE NOTE UPPER ENDOSCOPY Consent: Indications for the procedure and potential complications of bleeding, perforation, reaction to medications and missed diagnosis were discussed with the patient and informed consent was obtained. Instrument: Olympus GIF H 190 J mid size upper endoscope Monitoring: Vital signs and clinical assessment, continuous EKG monitoring, Pulse oximetry, Carbon Dioxide monitoring and blood pressure monitoring were done throughout the procedure. Procedure: The patient was placed in the left lateral decubitis position and pre-procedure medications were administered and a bite block was placed. The endoscope was inserted into the mouth and advanced under direct vision to the third part of duodenum. A careful inspection was made as the upper endoscope was withdrawn including a retroflexed examination of the proximal stomach; Findings and interventions are described below. Findings: Larynx:normal Esophagus: GE junction at 37 cm, diaphragm hiatus at 37 cm, mild esophagitis at GEJ Stomach: patchy gastritis with erosions in the distal and mid stomach. Biopsies were obtained. Grade 2 flap valve on retroflexed examination of the cardia. Duodenum: Normal bulb and descending duodenum, bx taken, x 2 clips applied Intervention: Biopsies as noted above COLONOSCOPY Instrument: Olympus variable stiffness pediatric scope 190L Colonoscopy Monitoring: Vital signs and clinical assessment, continuous EKG monitoring, Pulse oximetry, Carbon Dioxide monitoring and blood pressure monitoring were done throughout the procedure. Colon withdrawal time was 17 minutes. Procedure: The patient was placed in the left lateral decubitis position and pre-procedure medications were administered. After a digital rectal examination of the ano-rectum, the video colonoscope was inserted into the rectum and advanced through the colon to the cecum/TI. The colonoscope was slowly withdrawn in a retrograde panoramic fashion and the colon mucosa was carefully examined including a retroflexed view of the rectum. Findings and interventions are described below. Procedure Difficulty:moderate due to looping, pressure applied Findings: Terminal Ileum-unable to intubate due to looping random colon bx taken Cecum:normal Ascending Colon: normal Transverse Colon -normal Descending Colon: 8-9 mm sessile polyp removed with cold snare Sigmoid Colon: normal Rectum: Retroflexion with small internal hemorrhoids, grade I, proximal rectum a 14 mm sessile polyp was removed with cold snare and edges with cold forceps and one clip applied for hemostasis Anorectum - normal Colon preparation: [place] Bowel Preparation Scale Right colon; 2 Transverse colon: 3 Left colon; 3 (0 = Unprepared colon segment with mucosa not seen due to solid stool that cannot be cleared. 1 = Portion of mucosa of the colon segment seen, but other areas of the colon segment not well seen due to staining, residual stool and/or opaque liquid. 2 = Minor amount of residual staining, small fragments of stool and/or opaque liquid, but mucosa of colon segment seen well. 3 = Entire mucosa of colon segment seen well with no residual staining, small fragments of stool or opaque liquid) Impression and Post Procedure Diagnosis: Endoscopy Findings: erosive gastritis Colonoscopy Findings: polyps internal hemorrhoids Plan: Await Pathology results Repeat Colonoscopy in 1-2 years due to polyps or earlier if clinically indicated High fiber diet leaflet avoid straining at stool, epsom salts and sitz bath, anusol supps or cream confirm nsaid use and if taking PPI Above findings were reviewed with the patient and relevant handouts were provided if indicated.
[2022-09-25 15:03] VITALS: BP 121/45; PULSE 56; RESP 16; TEMP 36.3; O2SAT 90
[2022-09-25 15:18] VITALS: BP 124/56; PULSE 61; RESP 16; TEMP 36.4; O2SAT 95
== END 2022-09-25 16:10 | disposition home or self-care (01) ==
PROVIDERS: Internal Medicine Gastroenterology; PCP Family Medicine; Visit Provider Internal Medicine
DX: K52.9 Noninfective gastroenteritis and colitis, unspecified (principal); D12.4 Benign neoplasm of descending colon; D12.8 Benign neoplasm of rectum; K64.0 First degree hemorrhoids; K56.2 Volvulus; K29.60 Other gastritis without bleeding; K20.80 Other esophagitis without bleeding; K44.9 Diaphragmatic hernia without obstruction or gangrene; M94.0 Chondrocostal junction syndrome [Tietze]; Z86.79 Personal history of other diseases of the circulatory system; Z95.828 Presence of other vascular implants and grafts; Z86.718 Personal history of other venous thrombosis and embolism; Z79.01 Long term (current) use of anticoagulants; Z79.82 Long term (current) use of aspirin; Z88.8 Allergy status to other drugs, medicaments and biological substances; Z88.1 Allergy status to other antibiotic agents; Z90.49 Acquired absence of other specified parts of digestive tract; F10.91 Alcohol use, unspecified, in remission; Z87.891 Personal history of nicotine dependence
CPT/HCPCS: 45385; 45380; 43239; 88305; 88342; J2250; J3010

== ENCOUNTER → 2022-10-08 10:22 | Outpatient (BNVA) | payer MEDICARE, MEDICAID, SELFPAY | PROVIDERS: PCP Nurse Practitioner Primary Care; Visit Provider Internal Medicine | DX: K29.70 Gastritis, unspecified, without bleeding (principal); K52.9 Noninfective gastroenteritis and colitis, unspecified; M94.0 Chondrocostal junction syndrome [Tietze]; F10.91 Alcohol use, unspecified, in remission; Z86.010 Personal history of colon polyps | CPT/HCPCS: 99212 ==

== ENCOUNTER 2022-11-24 15:21 | Outpatient (REF) | payer MEDICARE, MEDICAID, SELFPAY ==
--- NOTE | ~2022-11-24 | US_ITS ---
EXAMINATION: US VENOUS ULTRASOUND WITH DOPPLER LOWER EXTREMITY, LEFT CLINICAL INFORMATION: Pain. History of DVT. COMPARISON: Previous exams most recent December 2021 TECHNIQUE: Ultrasound of the deep veins is performed from the hip to the calf with compression sonography and color and pulse Doppler assessment. Spectral analysis with color-flow imaging is performed. FINDINGS: There is a small amount of chronic appearing mural thrombus and decreased compression of the left common femoral vein suggestive of changes from old DVT. This is similar to previous exam. The left profunda, superficial femoral, popliteal veins and posterior tibial veins are patent. Peroneal veins are not well visualized. There is reversed flow seen in the greater saphenous vein. This is similar to previous exam. The right common femoral vein is patent. There is no Miller's cyst. 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 No evidence for acute DVT. Peroneal veins not well visualized.
== END 2022-11-24 15:22 | disposition home or self-care (01) ==
LOC: HO.US 15:21
PROVIDERS: PCP Nurse Practitioner Primary Care; Visit Provider Internal Medicine
DX: M79.662 Pain in left lower leg (principal); Z86.718 Personal history of other venous thrombosis and embolism
CPT/HCPCS: 93971

== ENCOUNTER 2023-01-11 15:14 | Emergency (ER) | payer MEDICARE, MEDICAID, SELFPAY ==
--- NOTE | ~2023-01-11 | CT_ITS ---
EXAMINATION: CT HEAD WITHOUT CONTRAST CLINICAL INFORMATION: Fall, on blood thinners. COMPARISON: CT head 01/08/2022. TECHNIQUE: Contiguous axial imaging was performed from the skull base to vertex without intravenous administration of contrast. This CT examination was performed using dose optimization techniques as appropriate, variously including the following: *Automated exposure control *Adjustment of mA and/or kV according to patient size (this includes techniques or standardized protocols for targeted exams where dose is matched to indication/reason for exam; i.e. extremities or head) *Use of iterative reconstruction technique DLP: 626 mGy-cm FINDINGS: Stable positioning of a left frontal approach TABLE AND DESK FINISHER shunt. Redemonstration of aneurysm clips in the supraclinoid region. Again noted large area of encephalomalacia/gliosis within the vascular territory of the JANAY in the bifrontal regions. No acute intracranial hemorrhage or edematous territorial infarction. No extra-axial collection. Stable ventricular system size without evidence of midline shift or obstructive hydrocephalus. Sequela of a right temporofrontal craniotomy. No acute soft tissue or osseous abnormalities. The mastoid air cells and paranasal sinuses are clear. CT/CT head/brain wo IV con IMPRESSION: 1. No acute intracranial hemorrhage or edematous territorial infarction. 2. Stable positioning of a left frontal approach TABLE AND DESK FINISHER shunt. 3. Redemonstration of large area of encephalomalacia/gliosis within the vascular territory of the JANAY.
[2023-01-11 15:23] VITALS: BP 128/68; BP 134/56; PULSE 65; PULSE 75; RESP 18; TEMP 37.1; O2SAT 93; BMI 38.0
--- NOTE | 2023-01-11 15:30 | PC.NURSE ---
pt aox4, called EMS post fall to assist up. pt has no complains surrounding the fall but thought they should get checked out at the hospital. pt reports chronic migraine pain 03/05.
--- OUTSIDE RECORDS SUMMARY | 2023-01-11 15:57 | XMS_ITS | Continuity of Care Document ---
Author Name Unknown Organization [facility] Eliezer infanteTutor Technologiess [facility] Address [address] [place] [address], 4t [place] [address]- Care Team Providers Care Transition Advisor Name Role Phone Kika Wolff MD [id number] - [facility]juan BabcockTutor Technologi[facility] [address] [facility], 4th [address] [place], [place] [address] Attending Physician: Lori Lieberman MD Referring Physician: Kika Wolff MD Allergies, Adverse Reactions, Alerts Substance Reaction Severity Status erythromycin vomiting Active amoxicillin Nausea and vomiting Persistent Mild Activ e sulfa drugs Nausea and vomiting Persistent Mild Activ e Depakote rash Active Cats tichy eyes, scratchy throat Active ethinyl estradiol/folic acid/levonorgestrel Unknown reaction Active Medications aspirin (OP) = 81 mg, By Mouth, Daily, 0 Refills, Maintenance, 2 Start Date: 02/15/20 Status: Ordered Cholestyramine Powder = 4 Gm, By Mouth, 2 times a day, 0 Refills Start Date: 04/19/09 Stop Date: 05/19/09 Status: Ordered Citalopram = 20 mg, By Mouth, Daily at bedtime, 0 Refills, Soft Stop, 04/19/09 9:04:12 EDT Start Date: 04/19/09 Stop Date: 05/19/09 Status: Ordered clobetasol 0.05% topical ointment 1 application, Topically, 2 times a day, # 60 Gm, 1 Refills, Maintenance, 09/12/22 11:13:00 EST, Ointment, [id number], Partial fill upon patient request if the prescription is for a schedule II opioid drug., 1 application Topically 2 times a d... Start Date: 09/12/22 Status: Ordered clonazePAM 1 mg oral tablet 1 tablet = 1 mg, By Mouth, Daily at bedtime, 0 Refills, Maintenance, 03/21/20 10:30:00 EDT Start Date: 03/21/20 Status: Ordered clotrimazole 1% topical cream 1 application, Topically, 2 times a day, # 45 Gm, 0 Refills, Maintenance, 04/02/22 16:45:00 EDT, Cream, [facility], Partial fill upon patient request if the prescription is for a schedule II opioid drug., 1 application Topically 2 times a... Start Date: 04/02/22 Status: Ordered estradiol 0.1 mg/g vaginal cream = 1 Gm, Vaginally, Daily at bedtime, ahmet every night for two weeks then twice weekly, # 42.5 Gm, 11Refills, Maintenance, 12/24/21 15:17:00 EDT, [facility], Partial fill upon patient request if the prescription is for a schedule II opioid... Start Date: 12/24/21 Status: Ordered estradiol 0.1 mg/g vaginal cream = 1 Gm, Vaginally, Daily at bedtime, take every night for two weeks then twice weekly, # 30 Gm, 11 Refills, Maintenance, 10/23/20 15:16:00 EDT, [facility], Partial fill upon patient request if the prescription is for a schedule II opioid d... Start Date: 10/23/20 Status: Ordered gabapentin 300 mg oral capsule 1 capsule = 300 mg, By Mouth, 2 times a day, 0 Refills, Soft Stop, 04/19/09 9:04:23 EDT Start Date: 04/19/09 Stop Date: 05/19/09 Status: Ordered ibuprofen 800 mg oral tablet 800 mg, 1, tablet, By Mouth, Every 8 hours, PRN, # 90 tablet, Refills 0, Tot. Refills 0, Maintenance, for pain, 03/26/20 16:54:00 EDT, Route to Pharmacy Electronically, [facility], 160.02, cm, 03/26/20 13:32:00 EDT, Height, 82.27, kg, 2... Start Date: 03/26/20 Status: Ordered irbesartan 75 mg oral tablet 1 tablet = 75 mg, By Mouth, Daily at bedtime, 0 Refills, Maintenance, 02/15/20 13:39:00 EDT Start Date: 02/15/20 Status: Ordered lidocaine 2% topical gel with applicator 1 mL = 0.02 Gm, Topically, Once, # 1 mL, 5 Refills, Soft Stop, 01/22/21 14:16:00 EDT, Gel, [facility]/pharmacy #[id number], Partial fill upon patient request if the prescription is for a schedule II opioid drug.,160.02, cm, 01/22/21 13:59:00 EDT, Height, 86.4, kg... Start Date: 01/22/21 Status: Ordered polyethylene glycol electrolyte solution - oral powder for reconstitution 240 mL, By Mouth, Daily, # 480 mL, 0 Refills, Maintenance, 03/26/20 16:55:00 EDT, REC Powder, [facility], 240 mL By Mouth Daily, 160.02, cm, 03/26/20 13:32:00 EDT, Height, 82.27, kg, 03/21/20 11:50:00 EDT, Dry Weight Start Date: 03/26/20 Status: Ordered senna - oral tablet 2 tablet, By Mouth, Daily at bedtime, PRN for constipation, # 60 tablet, 0 Refills, Maintenance, 03/26/20 16:55:00 EDT, Tablet, [facility], 160.02, cm, 03/26/20 13:32:00 EDT, Height, 82.27, kg, 03/21/20 11:50:00 EDT, Dry Weight Start Date: 03/26/20 Status: Ordered traZODone 100 mg oral tablet 2 tablets, By Mouth, Daily at bedtime, # 180 tablet, Refills 0, Maintenance, 02/15/20 13:39:00 EDT Start Date: 02/15/20 Status: Ordered triamcinolone 0.025% topical cream See Instructions, Apply thin film topically to affected area 2-3 times daily., # 60 Gm, 0 Refills, Acute 02/24/23 13:44:00 EDT, 11/24/22 13:44:00 EDT, [id number], Partial fill upon patient request if the prescription is for a schedule II opioi... Start Date: 11/24/22 Stop Date: 02/24/23 Status: Ordered trospium chloride 20 mg oral tablet 1 tablet = 20 mg, By Mouth, 2 times a day, # 60 tablet, 11 Refills, Maintenance, 01/22/21 14:17:00 EDT, Tablet, [id number], Partial fill upon patient request if the prescription is for a schedule II opioid drug., 160.02, cm, 01/22/21 13:59:00... Start Date: 01/22/21 Status: Ordered valacyclovir 1 gm oral tablet See Instructions, TAKE 1 TABLET BY MOUTH EVERYDAY AT BEDTIME. During an outbreak use double the dose recommended daily., # 90 tablet, 1 Refills, Maintenance, 11/19/22 16:48:00 EDT, [facility], 160.02, cm, 08/05/22 10:31:00 EST, Height, 82.... Start Date: 11/19/22 Status: Ordered verapamil 240 mg oral capsule, extended release 1 capsule = 240 mg, By Mouth, Daily at bedtime, 0 Refills, Soft Stop, 04/19/09 9:04:52 EDT Start Date: 04/19/09 Stop Date: 05/19/09 Status: Ordered Problem List Condition Confirmation Course Effective Dates Status H ealth Status Informant Anxiety Confirmed Active CVA (cerebrovascular accident) Confirmed Active Cystitis Confirmed Active Depression Confirmed Active Dysmenorrhea Confirmed Active S/P THERAPEUTIC RADIOLOGIST shunt Confirmed Active Head ache Confirmed Active Herpes simplex Confirmed Active Hyperlipidemia Confirmed Active Hypertension Confirmed Active Incontinence Confirmed Active Cerebral aneurysm Confirmed Active Endometrial mass Confirmed Active Migraine Confirmed Active Osteoarthritis Confirmed Active PMB (postmenopausal bleeding) Confirmed Active Severe obesity (BMI 35.0-39.9) with comorbidity Confirmed Active Follow-up examination after gynecological surgery Confirmed Active Tendinitis 1 Confirmed Active 1left shoulder Social History Social History Type Response Smoking Status Never (less than 100 in lifetime);Former smoker, quit more than 30 days ago entered on: 02/16/20 Sex Patient Care team information Care Team Personnel Name: Kika Wolff MD Position: Reference Physician Member Role: PCP Address: Address: [address] [place] [address] Care Team Related Persons Name: ZENA QUACH Address: home [address] [place] [address]
--- OUTSIDE RECORDS SUMMARY | 2023-01-11 15:57 | XMS_ITS | Continuity of Care Document ---
Author Name Unknown Organization [facility] Eliezer infanteJarvams [facility] Address [address] [place] [address], [address]t [place] [address]- Care Team Providers Care Milk Of Lime Slaker Name Role Phone Mariella PERAZA, Kika Mccoy Primary Care Physician [place] [facility] Date(s): 11/24/22 - [facility]24/[facility] [address] [facility], 4th [address] [place], [place] [email or web address]] Allergies, Adverse Reactions, Alerts Substance Reaction Severity [...] cm, 03/26/20 13:32:00 EDT, Height, 82.27, kg, 02/25... Start Date: 03/26/20 Status: Ordered irbesartan 75 mg oral tablet 1 tablet = 75 mg, By Mouth, Daily at bedtime, 0 Refills, Maintenance, 02/15/20 13:39:00 EDT Start Date: 02/15/20 Status: Ordered lidocaine 2% topical gel with applicator 1 mL = 0.02 Gm, Topically, Once, # 1 mL, 5 Refills, Soft Stop, 01/22/21 14:16:00 EDT, Gel, [facility]/pharmacy #[id number], Partial fill upon patient request if the [...] 02/24/23 13:44:00 EDT, 11/24/22 13:44:00 EDT, [facility], Partial fill upon patient request if the [...] Depression Confirmed Active Dysmenorrhea Confirmed Active S/P SINGEING TORCH OPERATOR shunt Confirmed Active Head ache Confirmed Active [...] Reference Physician Member Role: PCP Address: Address: [address] [place] [address]- Care Team Related Persons Name: ZENA QUACH Address: home [address] [place] [address]
--- OUTSIDE RECORDS SUMMARY | 2023-01-11 15:57 | XMS_ITS | Continuity of Care Document ---
Author Name Unknown Organization [facility] Eliezer infanteNodePings [facility] Address [address] [place] [address], 4t [place] [address]- Care Team Providers Care Machine Bookkeeper Name Role Phone Mariella PERAZA, Kika Mccoy Primary Care Physician [phone] [id number] Date(s): 11/03/22 - [facility]03/[facility] [address] [facility], 4th [address] [place], [place] [address] Allergies, Adverse Reactions, Alerts Substance Reaction Severity Status erythromycin vomiting Active amoxicillin Nausea and vomiting Persistent Mild Activ e sulfa drugs Nausea and vomiting Persistent Mild Activ e ethinyl estradiol/folic acid/levonorgestrel Unknown reaction Active Depakote rash Active Cats tichy eyes, scratchy throat Active Medications aspirin (OP) = 81 mg, [...] Refills, Soft Stop, 01/22/21 14:16:00 EDT, Gel, [facility]/pharmacy #202, Partial fill upon patient request if [...] Depression Confirmed Active Dysmenorrhea Confirmed Active S/P CUSTOMER SOLUTIONS TEAMMATE shunt Confirmed Active Head ache Confirmed Active [...] Reference Physician Member Role: PCP Address: Address: [address] [place] [address]- Care Team Related Persons Name: ZENA QUACH Address: home [address] [place] [address]
--- OUTSIDE RECORDS SUMMARY | 2023-01-11 15:57 | XMS_ITS | Continuity of Care Document ---
Author Name Unknown Organization [facility] Eliezer infantePrimocares [facility] Address [address] [place] [address], 4t [place] [address]- Care Team Providers Care Safety Teacher Name Role Phone Mariella PERAZA, Kika Mccoy Primary Care Physician Encounter [facility] Date(s): 11/19/22 - 12/19/22 [facility] SadiqPrimocares [facility] [address] [facility], 4th Floor [place], [place] [address] Allergies, Adverse Reactions, Alerts Substance Reaction Severity [...] Refills, Soft Stop, 01/22/21 14:16:00 EDT, Gel, [facility]/pharmacy #202, Partial fill upon patient request if [...] Confirmed Active Dysmenorrhea Confirmed Active S/P CUSTOMER RECORDS DIVISION SUPERVISOR shunt Confirmed Active Head ache Confirmed Active [...] Reference Physician Member Role: PCP Address: Address: [address] [place] [address]- Care Team Related Persons Name: ZENA QUACH Address: home [address] [place] [address]
--- OUTSIDE RECORDS SUMMARY | 2023-01-11 15:57 | XMS_ITS | Continuity of Care Document ---
Author Name Unknown Organization [facility] Eliezer infantes [facility] Address [address] [place] [address], 4t [place] [address]- Care Team Providers Care Business Continuity Global Director Name Role Phone Mariella PERAZA, Kika Mccoy Primary Care Physician [phone] [place] [facility] 09/24/22 - 10[facility]24/[facility] [address] [facility], 4th [address] [place], [place] [address] Allergies, Adverse Reactions, Alerts Substance Reaction [...] Refills, Soft Stop, 01/22/21 14:16:00 EDT, Gel, [facility]/pharmacy #[id number], Partial fill upon patient request [...] 13:39:00 EDT Start Date: 02/15/20 Status: Ordered trospium chloride 20 mg oral tablet 1 tablet = 20 mg, By Mouth, 2 times a day, # 60 tablet, 11 Refills, Maintenance, 01/22/21 14:17:00 EDT, Tablet, [facility]/pharmacy #[id number], Partial fill upon patient request if the prescription is for a schedule II opioid drug., 160.02, cm, 01/22/21 13:59:00... Start Date: 01/22/21 Status: Ordered valacyclovir 1 gm oral tablet See Instructions, TAKE 1 TABLET BY MOUTH EVERYDAY AT BEDTIME, # 84 tablet, 1 Refills, Maintenance, 09/24/22 15:07:00 EST, [id number], 160.02, cm, 08/05/22 10:31:00 EST, Height, 82.6, kg, 04/09/21 13:57:00 EDT, Dry Weight Start Date: 09/24/22 Status: Ordered verapamil 240 mg oral capsule, [...] Depression Confirmed Active Dysmenorrhea Confirmed Active S/P TELEPHONE SURVEYOR shunt Confirmed Active Head ache Confirmed Active [...] Reference Physician Member Role: PCP Address: Address: [address] [place] [address]- Care Team Related Persons Name: ZENA QUACH Address: home [address] [place] [address]
--- OUTSIDE RECORDS SUMMARY | 2023-01-11 15:57 | XMS_ITS | Continuity of Care Document ---
Author Name Unknown Organization [facility] Eliezer Rayo [facility] Address [address] [place] [address], 4t [place] [address]- Care Team Providers Care Medical Donation Professional Name Role Phone Mariella PERAZA, Kika Mccoy Primary Care Physician En[place] [facility] [place] Date(s): 09/12/22 - 10/12/22 [facility] [address] [facility], 4th [address] [place], [place] [address] Allergies, Adverse Reactions, Alerts Substance Reaction Severity Status erythromycin vomiting Active amoxicillin Nausea and vomiting Persistent Mild Activ e Depakote rash Active sulfa drugs Nausea and vomiting Persistent Mild Activ e ethinyl estradiol/folic acid/levonorgestrel Unknown reaction Active Cats tichy eyes, scratchy throat Active [...] Refills, Soft Stop, 01/22/21 14:16:00 EDT, Gel, [facility] #[id number], Partial fill upon patient request if [...] 11 Refills, Maintenance, 01/22/21 14:17:00 EDT, Tablet, [facility] #[id number], Partial fill upon patient request if [...] Depression Confirmed Active Dysmenorrhea Confirmed Active S/P REHEAT FURNACE OPERATOR shunt Confirmed Active Head ache Confirmed [...] Reference Physician Member Role: PCP Address: Address: [address] [place] [address] Care Team Related Persons Name: ZENA QUACH Address: home [address] [place] [address]
--- OUTSIDE RECORDS SUMMARY | 2023-01-11 15:58 | XMS_ITS | Continuity of Care Document ---
Author Name Unknown Organization [facility]zer [facility] Address [address] [place] [address], 4t [place] [address]- Care Team Providers Care Sawmill Equipment Operator Name Role Phone Mariella PERAZA, Kika Mccoy Primary Care Physician [phone] Encounter [facility] Date(s): 12/10/22 - 01/09/23 [facility] [address] [facility], 4th [address] [place], [place] [address] Allergies, Adverse Reactions, Alerts Substance Reaction Severity [...] Depression Confirmed Active Dysmenorrhea Confirmed Active S/P UI DESIGNER shunt Confirmed Active Head ache Confirmed Active [...] Reference Physician Member Role: PCP Address: Address: [address] [place] [address]- Care Team Related Persons Name: ZENA QUACH Address: home [address] [place] [address]
--- OUTSIDE RECORDS SUMMARY | 2023-01-11 15:58 | XMS_ITS | Continuity of Care Document ---
Author Name Unknown Organization [facility] Eliezer infanteLaunchpad [employer] [facility] Address [address] [place] [address], 4t [place] [address]- Care Team Providers Care Record Filing Clerk Name Role Phone Mariella PERAZA, Kika Mccoy Primary Care Physician En[facility] Date(s): 11/20/22 - 12/20/22 [facility] SadiqLaunchpad [facility] [address] [facility], 4th [address] [place], [place] [address] Allergies, Adverse Reactions, Alerts Substance Reaction Severity [...] Refills, Soft Stop, 01/22/21 14:16:00 EDT, Gel, [facility]/pharmacy #[id number], Partial fill upon patient request [...] Depression Confirmed Active Dysmenorrhea Confirmed Active S/P AUTO GARAGE MECHANIC shunt Confirmed Active Head ache Confirmed Active [...] Reference Physician Member Role: PCP Address: Address: [address] [place] [address]- Care Team Related Persons Name: ZENA QUACH Address: home [address] [place] [address]
--- OUTSIDE RECORDS SUMMARY | 2023-01-11 15:58 | XMS_ITS | Continuity of Care Document ---
Author Name Unknown Organization [facility] Address [address] [place] [address], [address] [place] [address]- Care Team Providers Care Asphalt Paving Superintendent Name Role Phone Mariella PERAZA, Kika Mccoy Primary Care Physician [place] [facility] [place](s): 10/13/22 - 11[facility]12/22 [facility] [address], 4th [address] [place], [place] [address] Allergies, Adverse Reactions, Alerts Substance [...] Refills, Soft Stop, 01/22/21 14:16:00 EDT, Gel, [facility]/pharmacy #[id number], Partial fill upon patient [...] 11 Refills, Maintenance, 01/22/21 14:17:00 EDT, Tablet, [facility]/pharmacy #[id number], Partial fill upon patient request if the prescription is for a schedule II opioid drug., 160.02, cm, 01/22/21 13:59:00... Start Date: 01/22/21 Status: Ordered valacyclovir 1 gm oral tablet See Instructions, TAKE 1 TABLET BY MOUTH EVERYDAY AT BEDTIME. During an outbreak use double the dose recommended daily., # 90 tablet, 1 Refills, Maintenance, 11/10/22 17:02:00 EDT, [id number], 160.02, cm, 08/05/22 10:31:00 EST, Height, 82.6, k... Start Date: 11/10/22 Status: Ordered verapamil 240 mg oral capsule, [...] Depression Confirmed Active Dysmenorrhea Confirmed Active S/P AUTOMOBILE BODY REPAIR SUPERVISOR shunt Confirmed Active Head ache Confirmed [...] Reference Physician Member Role: PCP Address: Address: [address] [place] [address]- Care Team Related Persons Name: ZENA QUACH Address: home [address] [place] [id number]
--- NOTE | 2023-01-11 16:06 | ED.FALL ---
HPI - Fall General Chief Complaint: Fall Stated Complaint: [facility] FALL,NO INJURY,ON THINNER PER EMS Time Seen by Provider: 01/11/23 15:59 Source: patient Mode of arrival: EMS Limitations: no limitations History of Present Illness HPI Narrative: Patient comes to the emergency room after a fall. Patient states that she was in her house, slipped on water and landed in her back. Patient states that she has no back pain. Patient states that she did not hit her head has a chronic migraine, denies neck pain, no musculoskeletal pain. Patient is on Eliquis for a previous DVT. Patient came to emergency room use make sure she is okay because she is on Eliquis. Related Data Home Medications Medication Instructions Recorded Confirmed aspirin 81 mg chewable tablet 81 mg PO BEDTIME 02/20/21 11/24/22 clonazepam 1 mg tablet 1 mg PO BEDTIME PRN Insomnia 02/20/21 11/24/22 estradiol 0.01% (0.1 mg/gram) 1 appl vaginal BEDTIME 02/20/21 11/24/22 vaginal cream irbesartan 75 mg tablet 0.5 tab PO BEDTIME 02/20/21 11/24/22 melatonin 5 mg tablet 5 mg PO BEDTIME 02/20/21 11/24/22 trazodone 100 mg tablet 2 tab PO BEDTIME 02/20/21 11/24/22 valacyclovir 1 gram tablet 1 tab PO BID 02/20/21 11/24/22 verapamil 240 mg tablet,extended 1 tab PO DAILY 02/20/21 11/24/22 release oxybutynin chloride 5 mg 1 tab PO DAILY 04/15/22 11/24/22 tablet,extended release 24 hr escitalopram oxalate 20 mg tablet 20 mg PO DAILY 06/10/22 11/24/22 gabapentin 300 mg capsule 300 mg PO DAILY 06/10/22 11/24/22 hydroxyzine HCl 25 mg tablet 25 mg PO ONCE PRN Sleep 06/10/22 11/24/22 neomycin 3.5 mg/g-polymyxin B 3.5 appl ophthalmic (eye) BID 06/10/22 11/24/22 10,000 unit/g-dexameth 0.1 % eye oint Previous Rx's Medication Instructions Recorded cholestyramine (with sugar) 4 gram 2 g PO DAILY Diarrhea 30 days #60 05/13/22 powder for susp in a packet ea rivaroxaban 20 mg tablet (Xarelto) 20 mg PO DAILY #30 tabs 09/12/22 lidocaine 5 % topical patch 1 patch topical DAILY #30 ea 10/08/22 omeprazole 20 mg capsule,delayed 20 mg PO DAILY #90 caps 10/08/22 release giugbrjrlo-otfpodiawofou-fxicnybi 2 cap PO Q4-6H PRN pain #10 caps 01/11/23 50 mg-300 mg-40 mg capsule (Fioricet) Allergies Allergy/AdvReac Type Severity Reaction Status Date / Time bee pollen [BEE STINGS] Allergy Unknown UNKNOWN Verified 10/08/22 10:38 divalproex sodium Allergy Unknown UNKNOWN Verified 10/08/22 10:38 [From DEPAKOTE] erythromycin base Allergy Unknown UNKNOWN Verified 10/08/22 10:38 [ERYTHROMYCIN BASE] oxycodone [From PERCOCET] AdvReac Mild NAUSEA & Verified 10/08/22 10:38 VOMITING Review of Systems Review of Systems: Constitutional : No Weight loss, No Fever, No Chills, No Night Sweats, No Fatigue, No Malaise ENT/Mouth : No Hearing loss, No Ear Pain, No Nasal Congestion, No Sinus Pain, No Hoarseness, No sore throat, No Rhinorrhea, No Swallowing Difficulty Eyes: No Eye Pain, No Swelling, No Redness, No Foreign Body, No Discharge, No Vision Changes Cardiovascular : No Chest Pain, No SOB, No Dyspnea on Exertion, No Orthopnea, No Edema, No Palpitations Respiratory : No Cough, No Sputum, No Wheezing, No Smoke Exposure, No Dyspnea Gastrointestinal : No Nausea, No Vomiting, No Diarrhea, No Constipation, No abdominal Pain, No Hematochezia, No Melena Genitourinary : no irregular bleeding, No Dysuria, No Urinary Frequency, No Hematuria, No Urinary Incontinence, No Urgency, No Flank Pain, No Urinary Flow Changes, No Hesitancy Musculoskeletal : No joint pain, No Myalgias, No Joint Swelling Skin : No Skin Lesions, No rash Neuro : No Weakness, No Numbness, No Paresthesias, No Loss of Consciousness, No Dizziness, complaining chronic migraine Headache Psych : No Anxiety/Panic, No Depression, No SI/HI/AH/VH, No Social Issues, Heme/Lymph: No Bruising, No Bleeding,No Lymphadenopathy Endocrine : No Polyuria, No Polydipsia, No Temperature Intolerance PMFSH Past Medical History Medical History Anxiety DVT, lower extremity Hypertension Migraine Ruptured (congenital) cerebral aneurysm Sciatica Stroke Subarachnoid hemorrhage Surgical History History of cholecystectomy History of partial hysterectomy History of ventriculoperitoneal shunting Hx of brain surgery S/P IVC filter Family History Family History Maternal Uncle Brain cancer Father Prostate cancer Brother CHF (congestive heart failure) Maternal Grandmother HTN (hypertension) Paternal Grandmother Diabetes Social History Social History Household Members: Caregiver Housing: House Alcohol intake: current Alcohol intake frequency: a few times a month Patient Tobacco Use Status: Former Tobacco user Quit Date: 1989 Tobacco use type: Cigarette Cigarette Packs Per Day: 1 Smoked in Last 30 Days: No Use of substances other than those prescribed or required for medical reasons: No Advance Directives: No Advance Directives Information Provided: No Advance Directives Date on File: 02/21/21 service: No Current occupational status: disabled Physical Exam Vital Signs: Vital Signs: Last Vital Signs Temp 98.8 F 01/11/23 15:23 Pulse 60 01/11/23 17:37 Resp 18 01/11/23 17:37 BP 127/55 L 01/11/23 17:37 Pulse Ox 94 01/11/23 17:37 O2 Del Method Room Air 01/11/23 17:37 BMI result Body Mass Index 38.0 Const: Other: Appearance: Alert. Oriented X3. No acute distress. Eyes: Pupils equal, round and reactive to light. ENT: Pharynx normal. Neck: Normal inspection. Neck supple. No lymph nodes noted. No crepitus CVS: Normal heart rate and rhythm. Pulses normal. Normal S1 and S2 Respiratory: No respiratory distress. Breath sounds normal. No Wheezing. No rales Abdomen: Soft and nontender. No rigidity. No distention. Skin: Skin warm and dry. Normal skin color. Normal skin turgor. Extremities: No lower extremity edema. No Lacerations. No Rash Neuro: Oriented X 3. No motor deficit. No sensory deficit. Moving all extremities. No slurred speech. CN 2 through 12 grossly intact Psych: calm, cooperative, normal affect Course Course Course Narrative: -patient's head CT pending. -patient has no other musculoskeletal pain, no other imaging indicated at this time -patient complaining of a migraine headache. Patient requesting Imitrex which works well for her. Medications Administered Discontinued Medications Generic Name Dose Route Start Last Admin Trade Name Freq PRN Reason Stop Dose Admin Sumatriptan Succinate 100 mg 01/11/23 16:04 01/11/23 17:35 Sumatriptan Succinate 100 Mg Tablet PO 01/11/23 16:05 100 mg ONCE ONE Administration Medical Decision Making Medical Decision Making [facility] Narrative: -my interpretation head CT: No intracranial bleed -patient took 1 dose of sumatriptan. Headache improved, still chronic -patient feels well to be discharged Radiology Impression Discussion of test interpretation with radiology: I have reviewed the radiologist's reading. Radiologist Impression: FINDINGS: Stable positioning of a left frontal approach MERGERS AND ACQUISITIONS BANKER shunt. Redemonstration of aneurysm clips in the supraclinoid region. Again noted large area of encephalomalacia/gliosis within the vascular territory of the JANAY in the bifrontal regions. No acute intracranial hemorrhage or edematous territorial infarction. No extra-axial collection. Stable ventricular system size without evidence of midline shift or obstructive hydrocephalus. Sequela of a right temporofrontal craniotomy. No acute soft tissue or osseous abnormalities. The mastoid air cells and paranasal sinuses are clear. ? CT/CT head/brain wo IV con IMPRESSION: 1.? No acute intracranial hemorrhage or edematous territorial infarction. 2.? Stable positioning of a left frontal approach MERGERS AND ACQUISITIONS BANKER shunt. 3.? Redemonstration of large area of encephalomalacia/gliosis within the vascular territory of the JANAY. ? Discharge Plan Discharge Clinical Impression: Fall, Chronic migraine without aura Patient Disposition: Home, Self-Care Instructions: Migraine Headache (ED), Fall Prevention (ED) Additional Instructions: Please follow-up with your primary care physician tomorrow. If you have any worsening or new symptoms, please return to the emergency room or call 911 Prescriptions: New cteaaaatwm-mifoceknedugq-sqwm [Fioricet] 50-300-40 mg capsule 2 cap PO Q4-6H PRN (Reason: pain) Qty: 10 0RF Rx Instructions: do not exceed 6 caps per day No Action valacyclovir 1 gram tablet 1 tab PO BID clonazepam 1 mg tablet 1 mg PO BEDTIME PRN (Reason: Insomnia) trazodone 100 mg tablet 2 tab PO BEDTIME irbesartan 75 mg tablet 0.5 tab PO BEDTIME verapamil 240 mg tablet extended release 1 tab PO DAILY estradiol 0.01 % (0.1 mg/gram) cream 1 appl vaginal BEDTIME aspirin 81 mg Tablet,Chewable 81 mg PO BEDTIME melatonin 5 mg Tablet 5 mg PO BEDTIME oxybutynin chloride 5 mg tablet extended release 24hr 1 tab PO DAILY Xarelto 20 mg Tablet 20 mg PO DAILY Qty: 30 3RF Rx Instructions: must administer with evening meal omeprazole 20 mg capsule,delayed release(DR/EC) 20 mg PO DAILY Qty: 90 2RF lidocaine 5 % adhesive patch,medicated 1 patch topical DAILY Qty: 30 0RF Rx Instructions: leave on most painful area for up to 12 hrs cholestyramine (with sugar) 4 gram powder in packet 2 g PO DAILY 30 Days Qty: 60 0RF hydroxyzine HCl 25 mg tablet 25 mg PO ONCE PRN (Reason: Sleep) gabapentin 300 mg capsule 300 mg PO DAILY escitalopram oxalate 20 mg tablet 20 mg PO DAILY neomycin-polymyxin B-dexameth 3.5 mg/g-10,000 unit/g-0.1 % ointment 3.5 appl ophthalmic (eye) BID
--- NOTE | 2023-01-11 16:59 | PC.NURSE ---
called pharmacy for imitrex. awaiting med
[2023-01-11] MEDS: SUMAtriptan succinate 100 MG TABLET PO (17:35)
[2023-01-11 17:37] VITALS: BP 127/55; PULSE 60; RESP 18; O2SAT 94
[2023-01-11 19:29] VITALS: BP 147/56; PULSE 63; RESP 16; TEMP 37.1; O2SAT 96
--- NOTE | 2023-01-11 19:43 | PC.NURSE ---
pt does not have ride home or phone to call for one. pt has no money to call for a ride. Checked with charge nurse and pt was deemed ineligible to ems transport. pt uses cane at baseline to ambulate. pt was discharged to the waiting room and instructed to use the phone to call for a ride home.
== END 2023-01-11 19:42 | disposition home or self-care (01) ==
PROVIDERS: Emergency Provider Emergency Medicine; PCP Family Medicine
DX: Z04.3 Encounter for examination and observation following other accident (principal); G43.709 Chronic migraine without aura, not intractable, without status migrainosus; Z91.81 History of falling; I10 Essential (primary) hypertension; Z86.718 Personal history of other venous thrombosis and embolism; Z87.891 Personal history of nicotine dependence; Z79.01 Long term (current) use of anticoagulants; Z79.82 Long term (current) use of aspirin; Z79.899 Other long term (current) drug therapy
CPT/HCPCS: 70450; 99284

== ENCOUNTER 2023-04-08 13:23 | Outpatient (AMB) | payer MEDICARE, MEDICAID, SELFPAY ==
--- NOTE | 2023-04-08 13:27 | A.OFFVIS_ITS ---
Intake Vital Signs 04/08/23 13:36 Height 5 ft 2 in BMI Reason not done Patient refused/unable BP 109/53 L Blood Pressure Location Lt brachial Position Sitting Pulse 45 L Intake Visit Reasons: follow up 6 months Intake Note: Rhonda presents in the office as a follow up 6 month. CC: She states that she has no gall bladder - she either has constipation or diarrhea there is no inbetween. 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 Patient is accompanied by her mother Jessica who is also her ground instructor basic. Initial visit 04/2022: She has following gastrointestinal complaints: -right-sided abdominal pain. She said i t started suddenly 6-8 months ago. She was in a seated position. Denies any nausea, vomiting, changes in bowel habits, changes in appetite or unintentional weight loss. No identified triggers including food or defecation. Pain is waxing and waning and spontaneously resolves. She denies taking any NSAIDs or Tylenol for this. -chronic intermittent diarrhea: States this started after cholecystectomy 22 years ago. Reports having some workup done for this including 2 colonoscopies. 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 Currently, has 2-3 days a week where she has loose nonbloody bowel movements. -question history of polyps: As aforemen tioned, last colonoscopy was more than 10 years ago. Patient does not recall if she has ever had polyps. Unfortunately records from [facility] not available for review today. 06/10/23: Reports has not been able to consistently take cholestyramine every day, as it is a powder, and she forgets to take it with her pills (which are in the pillbox). Despite that, reports improvement in her diarrhea. It was not as often. She is unsure what helped. Continues to have right-sided abdominal wall pain. Records from [facility] reviewed. Most recent appointment was February 2022 for right upper quadrant pain and loose stools. Reportedly, her last colonoscopy was in 2008 and is documented as as ?normal? colonoscopy note and pathology not available. She was given a 10 year follow-up. She was scheduled for an upper endoscopy and colonoscopy through [facility] in March, however per the mom's report, it was canceled a day before while patient had already started prepping for the colonoscopy, as she was still taking her Eliquis. 07/02/22 -US Abd: IMPRESSION: 1.? Heterogeneous echogenic liver withou t focal lesion. 2.? The gallbladder has been surgically removed. 3.? Rest of the abdominal ultrasound is unremarkable. 09/25/2022-EGD and colonoscopy (Dr. Duarte ): Erosive gastritis. Adequate prep. 9 mm polyp in descending colon and 14 mm polyp in rectum (piecemeal). Path: Diagnosis A. Duodenum, biopsy: Duodenal mucosa within normal limits. B. Stomach, biopsy: Antral-type and oxyntic mucosa with mild chronic inactive inflammation and focal erosion in the antrum; no Helicobacter organisms seen. C. Colon, random, biopsy: Colonic mucosa within normal limits. D. Colon, descending, polypectomy: Tubular adenoma; negative for high-grade dysplasia or carcinoma. E. Rectum, proximal, polypectomy: Fragments of tubulovillous adenoma; negative for high-grade dysplasia or carcinoma. 10/08/22: Currently, apart from intermittent right lower chest discomfort, has no gastrointestinal related complaints. Diarrhea responsive to cholestyramine, which the patient takes p.r.n.. Current bowel movement frequency is 2-3 a day, however patient says that the frequency does not bother her as much as long as they are soft/formed. 04/08/23: Currently in rehab for etOH use disorder. Was sectioned by her brother on 01/13. Reports was binging to the point of black outs before consuming up to 120oz of beer. Now sober since 01/13. Reports occasional pinch of pain on R sided consistently. Housing is an issue. Mother is in rehab due to cardiovascular issues so unable to live with her. Otherwise no other GI issues reported today. Concerned re liver function. [facility] Medical History DVT, lower extremity Subarachnoid hemorrhage Sciatica Hypertension Migraine Anxiety Stroke Ruptured (congenital) cerebral aneurysm Surgical History S/P IVC filter Hx of brain surgery History of ventriculoperitoneal shunting History of partial hysterectomy History of cholecystectomy Family History Maternal Uncle Brain cancer Father Prostate cancer Brother CHF (congestive heart failure) Maternal Grandmother HTN (hypertension) Paternal Grandmother Diabetes Social History Household Members: Caregiver Housing: House Alcohol intake: current Alcohol intake frequency: a few times a month Patient Tobacco Use Status: Former Tobacco user Quit Date: 1989 Tobacco use type: Cigarette Cigarette Packs Per Day: 1 Advance Directives Date on File: 02/21/21 service: No Current occupational status: disabled Review of Systems Const All systems reviewed & are unremarkable except as noted in HPI and below Physical Exam Vital Signs: Last Vital Signs Pulse 45 L 04/08/23 13:36 BP 109/53 L 04/08/23 13:36 Gen appear: No acute distress, presents in wheelchair HEENT: no icterus, no cervical lymphadenopathy Chest: No overt resp distress CVS: S1/S2, regular Abd: soft, nondistended Psych: Stable affect, answering questions appropriately Neuro: A/Ox3 noted to move all extremities spontaneously Ext: R foot in brace Assessment & Plan Assessment & Plan (1) Alcohol use: Code(s): Z78.9 - Other specified health status Plan: Unfortunately, relapsed again. Was consuming up to 120oz of beer per day. Was sectioned on behest of her brother per her report and has been in rehab since 01/13. Tells me barrier to discharge is housing insecurity. Her telehealth case manager is looking into options. Previous Fib-4 1.17 -- high likelihood that does not have advanced fibrosis. Ultrasound liver from Jun 2022 reassuring. However, will need re-evaluation and reimaging given recent relapse. Plan: - CBC, CMP and INR ordered - US Abd ordered Follow up in 8 weeks (2) Personal history of colonic polyps: Code(s): Z86.010 - Personal history of colonic polyps Plan: Given piecemeal resection of TVA < 20mm, will book her for a repeat colonoscopy in 1 year (09/2023) for follow up surveillance. Reminder placed, banner updated. Orders: Orders Complete Blood Count no Diff Today K76.9 - Liver disease, unspecified Comprehensive Met. Panel Today K76.9 - Liver disease, unspecified Prothrombin Time INR Today K76.9 - Liver disease, unspecified US abdomen complete Today K76.9 - Liver disease, unspecified Coding Level of Care Code Est Pt Level 4 (56516) Diagnoses Alcohol use Z78.9 Personal history of colonic polyps Z86.010
[2023-04-08 13:36] VITALS: BP 109/53; PULSE 45
== END 2023-04-08 14:23 | disposition home or self-care (01) ==
PROVIDERS: PCP Family Medicine; Visit Provider Internal Medicine
DX: Z78.9 Other specified health status (principal); Z86.010 Personal history of colon polyps
CPT/HCPCS: 99214

== ENCOUNTER → 2023-04-08 13:23 | Outpatient (BNVA) | payer MEDICARE, MEDICAID, SELFPAY | PROVIDERS: PCP Family Medicine; Visit Provider Internal Medicine | DX: Z78.9 Other specified health status (principal); Z86.010 Personal history of colon polyps | CPT/HCPCS: 99212 ==